=== PATIENT | male | born 1965 | race Two or more races ===

== ENCOUNTER 2020-03-09 07:22 | Outpatient (REF) | payer OTHER, SELFPAY ==
[2020-03-09 09:14] LABS: MANUAL DIFF FLAG NO
[2020-03-09 09:19] LABS: Basophils Percent Auto 0.7 % (0-2); Eosinophils Absolute Auto 0.1 X10*3/uL (0.0-0.4); Eosinophils Percent Auto 1.8 % (0-4); Hematocrit 45.6 % (42-52); Hemoglobin 15.6 g/dl (14.0-18.0); Imm Gran Abs Auto 0.01 X10*3/uL (0.00-0.03); Imm Gran Pct Auto 0.2 % (0.0-0.4); Lymphocytes Absolute Auto 1.9 X10*3/uL (1.2-4.9); Lymphocytes Percent Auto 41.7 % (20-40); Mean Corpuscular HGB Conc 34.2 g/dl (31.0-36.0); Mean Corpuscular Hemoglobin 32.6 pg (27.0-33.0); Mean Corpuscular Volume 95.2 fL (80-98); Mean Platelet Volume 9.8 fL (9.4-12.4); Monocytes Absolute Auto 0.6 X10*3/uL (0.1-1.2); Monocytes Percent Auto 13.5 % (2-11); Neutrophils Absolute Auto 1.9 X10*3/uL (2.0-8.3); Neutrophils Percent Auto 42.1 % (45-73); Platelet Count 262 X10*3/uL (160-400); Red Blood Count 4.79 X10*6/uL (4.60-5.80); Red Cell Distribution Width 11.5 % (11.0-16.0); White Blood Count 4.5 X10*3/uL (4.8-10.8)
[2020-03-09 09:28] LABS: Estimated Average Glucose 100 mg/dL; Hemoglobin A1c % 5.1 %
[2020-03-09 09:30] LABS: Glucose Urine UA NEG (NEG); Leukocyte Esterase Urine NEG (NEG); Nitrite Urine NEG (NEG); Urine Blood TRACE (NEG); Urine Ketones NEG (NEG); Urine Protein NEG (NEG-TRACE)
[2020-03-09 09:31] LABS: Appearance Urine CLEAR; Color Urine YELLOW
[2020-03-09 09:41] LABS: WBC Urine 0 /HPF (0-4)
[2020-03-09 09:42] LABS: RBC Urine 0-2 /HPF (0); Squamous Epithelial Cell Urine TRACE /LPF
[2020-03-09 10:00] LABS: Alanine Aminotransferase 21 U/L (0-40); Albumin Level 4.8 g/dL (3.5-5.0); Alkaline Phosphatase 54 U/L (39-117); Anion Gap 9 (12-20); Aspartate Amino Transferase 20 U/L (5-37); Bilirubin Total 0.6 mg/dL (0.0-1.0); Blood Urea Nitrogen 14 mg/dL (9-16); Calcium 9.6 mg/dL (8.4-10.2); Carbon Dioxide 32 mmol/L (22-29); Chloride 102 mmol/L (96-108); Cholesterol 190 mg/dL; Estimated Glomerular Filt Rate > 60; Glucose Fasting 95 mg/dL (60-99); HDL Cholesterol 72 mg/dL; LDL Cholesterol Calculated 105 mg/dl; Sodium 138 mmol/L (135-145); Total Protein 7.7 g/dL (6.5-8.0); Triglycerides 67 mg/dL
[2020-03-09 10:21] LABS: TSH reflex Free T4 1.57 mIU/mL (0.32-4.0); Vitamin D 25-OH Total 32.9 ng/mL (>30)
== END 2020-03-09 07:23 | disposition home or self-care (01) ==
LOC: HO.LAB 07:22
PROVIDERS: PCP Internal Medicine; Visit Provider Internal Medicine
DX: E78.5 Hyperlipidemia, unspecified (principal); K29.30 Chronic superficial gastritis without bleeding; R73.01 Impaired fasting glucose; J30.9 Allergic rhinitis, unspecified; R31.29 Other microscopic hematuria; E55.9 Vitamin D deficiency, unspecified; E66.3 Overweight
CPT/HCPCS: 36415; 80053; 80061; 81001; 81003; 81015; 82306; 83036; 84443; 85025

== ENCOUNTER 2020-03-13 10:08 | Outpatient (REF) | payer OTHER, SELFPAY | END 2020-03-13 10:09 | disposition home or self-care (01) | LOC: HO.LAB 10:08 | PROVIDERS: PCP Internal Medicine; Visit Provider Internal Medicine | DX: Z20.828 Contact with and (suspected) exposure to other viral communicable diseases (principal) | CPT/HCPCS: 87635 ==

== ENCOUNTER → 2020-06-13 10:47 | Outpatient (BNVA) | payer OTHER, SELFPAY | PROVIDERS: PCP Internal Medicine; Visit Provider Nurse Practitioner ==

== ENCOUNTER 2020-06-15 08:48 | Outpatient (REF) | payer OTHER, SELFPAY ==
[2020-06-15 09:34] LABS: MANUAL DIFF FLAG NO
[2020-06-15 09:38] LABS: Eosinophils Absolute Auto 0.1 X10*3/uL (0.0-0.4); Eosinophils Percent Auto 1.5 % (0-4); Hematocrit 45.2 % (42-52); Hemoglobin 15.7 g/dl (14.0-18.0); Imm Gran Abs Auto 0.01 X10*3/uL (0.00-0.03); Imm Gran Pct Auto 0.2 % (0.0-0.4); Lymphocytes Absolute Auto 1.3 X10*3/uL (1.2-4.9); Lymphocytes Percent Auto 31.2 % (20-40); Mean Corpuscular HGB Conc 34.7 g/dl (31.0-36.0); Mean Corpuscular Hemoglobin 32.8 pg (27.0-33.0); Mean Corpuscular Volume 94.6 fL (80-98); Mean Platelet Volume 9.4 fL (9.4-12.4); Monocytes Absolute Auto 0.6 X10*3/uL (0.1-1.2); Monocytes Percent Auto 13.8 % (2-11); Neutrophils Absolute Auto 2.2 X10*3/uL (2.0-8.3); Neutrophils Percent Auto 52.3 % (45-73); Platelet Count 272 X10*3/uL (160-400); Red Blood Count 4.78 X10*6/uL (4.60-5.80); Red Cell Distribution Width 11.5 % (11.0-16.0); White Blood Count 4.1 X10*3/uL (4.8-10.8)
[2020-06-15 09:45] LABS: Glucose Urine UA NEG (NEG); Leukocyte Esterase Urine NEG (NEG); Nitrite Urine NEG (NEG); Urine Blood TRACE (NEG); Urine Ketones NEG (NEG); Urine Protein NEG (NEG-TRACE)
[2020-06-15 09:46] LABS: Appearance Urine CLEAR; Color Urine YELLOW
[2020-06-15 10:01] LABS: WBC Urine 0 /HPF (0-4)
[2020-06-15 10:32] LABS: Alanine Aminotransferase 19 U/L (0-40); Albumin Level 4.9 g/dL (3.5-5.0); Alkaline Phosphatase 56 U/L (39-117); Anion Gap 11 (12-20); Aspartate Amino Transferase 17 U/L (5-37); Bilirubin Total 0.7 mg/dL (0.0-1.0); Blood Urea Nitrogen 12 mg/dL (9-16); Calcium 9.4 mg/dL (8.4-10.2); Carbon Dioxide 32 mmol/L (22-29); Chloride 99 mmol/L (96-108); Cholesterol 188 mg/dL; Estimated Glomerular Filt Rate > 60; Glucose Fasting 107 mg/dL (60-99); HDL Cholesterol 72 mg/dL; LDL Cholesterol Calculated 102 mg/dl; Potassium 4.9 mmol/l (3.3-5.1); Sodium 137 mmol/L (135-145); Total Protein 7.8 g/dL (6.5-8.0); Triglycerides 72 mg/dL
[2020-06-15 10:35] LABS: Vitamin D 25-OH Total 26.9 ng/mL (>30)
== END 2020-06-15 08:49 | disposition home or self-care (01) ==
LOC: HO.LAB 08:48
PROVIDERS: PCP Internal Medicine; Visit Provider Internal Medicine
DX: K29.30 Chronic superficial gastritis without bleeding (principal); E78.00 Pure hypercholesterolemia, unspecified; R73.01 Impaired fasting glucose; E55.9 Vitamin D deficiency, unspecified; R31.29 Other microscopic hematuria
CPT/HCPCS: 36415; 80053; 80061; 81001; 82306; 85025

== ENCOUNTER 2020-06-23 22:25 | Emergency (ER) | payer OTHER, SELFPAY ==
[2020-06-23 22:29] VITALS: BP 155/90; PULSE 93; RESP 20; TEMP 38.1; O2SAT 99; BMI 26.6
--- NOTE | 2020-06-23 22:42 | XR_ITS ---
EXAMINATION: XR CHEST CLINICAL INFORMATION: Chest pain COMPARISON: 09/19/2019 TECHNIQUE: Frontal view of the chest was obtained. FINDINGS: No significant abnormality is noted involving the heart, lungs, mediastinum, bony thorax or soft tissues. XR/XR chest 1V IMPRESSION: Unremarkable examination.
--- NOTE | 2020-06-23 23:41 | ED.GENADULT ---
HPI - General Adult General Chief complaint: Chest Pain Stated complaint: chest pain,fever Time Seen by Provider: 06/23/20 22:40 Source: patient Mode of arrival: ambulatory Limitations: language barrier History of Present Illness HPI narrative: Patient with no significant medical history came back from [place] 2 weeks ago was doing fine saw his friend who came from [place] 3 days ago complaining of body aches tiredness slight sore throat chest discomfort dry cough for last 24 hours. Also low-grade fever temperature on arrival was 100.6 Related Data Home Medications Medication Instructions Recorded Confirmed atorvastatin 20 mg tablet 20 mg PO DAILY 03/17/20 03/17/20 [id number] 1 cap PO QID 06/12/20 06/12/20 24,000-76,000-120,000 unit capsule,delayed rel cholecalciferol (vitamin D3) 25 25 mcg PO DAILY 06/13/20 mcg (1,000 unit) capsule Previous Rx's Medication Instructions Recorded dexlansoprazole 60 mg 60 mg PO BEDTIME #30 cap 06/08/20 capsule,biphase delayed release Allergies Allergy/AdvReac Type Severity Reaction Status Date / Time No Known Allergies Allergy Verified 06/23/20 22:36 [No Known Allergies*] Review of Systems Review of Systems: Constitutional : No Weight loss, +Fever, No Chills ENT/Mouth : + sore throat, No Rhinorrhea Eyes: No Eye Pain, No Swelling Cardiovascular : No Chest Pain, no palpitations Respiratory : Occasional Cough, No Sputum, no shortness of breath Gastrointestinal : no Nausea, No Vomiting, No Diarrhea, No abdominal Pain, no black stools Genitourinary : No Dysuria, No Urinary Frequency Musculoskeletal : No joint pain, ++ Myalgias, No Joint Swelling Skin : No Skin Lesions, No rash Neuro : No Weakness, No Numbness, No Dizziness, No Headache Psych : No Anxiety/Panic, No Depression Heme/Lymph: No Bruising, No Lymphadenopathy Endocrine : No Polyuria, No Polydipsia All other systems reviewed and are negative [facility], [facility] Past Medical History Medical History Allergic rhinitis Impaired fasting glucose Microscopic hematuria Overweight (BMI 25.0-29.9) Pure hypercholesterolemia Superficial gastritis without hemorrhage Vitamin D deficiency Surgical History History of colonoscopy History of esophagogastroduodenoscopy (EGD) Family History Family History Father Medical history unknown Mother Hypertension Maternal Aunt Cancer Maternal Uncle Cancer Social History Social History Alcohol intake: current Alcohol intake frequency: 0-2 drinks per day Alcohol type: beer Smoking Status: Never smoker Use of substances other than those prescribed or required for medical reasons: No Advance Directives: No Advance Directives Information Provided: Yes Physical Exam Vital Signs: Vital Signs: Last Vital Signs Temp 103.1 F H 06/23/20 23:59 Pulse 96 06/23/20 23:59 Resp 18 06/23/20 23:59 BP 146/86 H 06/23/20 23:59 Pulse Ox 97 06/23/20 23:59 Body Mass Index 26.6 Appearance: Alert. Oriented X3. No acute distress. Eyes: Pupils equal, round and reactive to light. ENT: Pharynx normal. Neck: Normal inspection. Neck supple. CVS: Normal heart rate and rhythm. Pulses normal. Respiratory: No respiratory distress. Breath sounds normal. Abdomen: Soft and nontender. Bowel sounds are present, no mass palpable, no CVA tenderness Skin: Skin warm and dry. Normal skin color. Normal skin turgor. Extremities: No lower extremity edema. Neuro: Oriented X 3. No motor deficit. No sensory deficit. Course Course Course Narrative: Patient COVID positive with stable labs saturating 98% at room air will discharge patient home Medical Decision Making MDM Narrative Medical decision making narrative: Patient's symptoms likely from COVID will test for COVID chest x-ray is negative patient is saturating 99% at room air will give him prescription for Decadron and doxycycline Lab Data Lab results reviewed: Yes I reviewed the patient's lab results. Result diagrams: 06/24/20 00:19 06/24/20 00:19 Labs: Lab Results 06/24/20 06/24/20 06/24/20 Range/Units 00:03 00:19 00:19 WBC 4.1 L (4.8-10.8) X10*3/uL RBC 4.50 L (4.60-5.80) X10*6/uL Hgb 14.9 (14.0-18.0) g/dl Hct 42.2 (42-52) % MCV 93.8 (80-98) fL MCH 33.1 H (27.0-33.0) pg MCHC 35.3 (31.0-36.0) g/dl RDW 11.7 (11.0-16.0) % Plt Count 217 (160-400) X10*3/uL MPV 9.3 L (9.4-12.4) fL Immature Gran % (Auto) 0.2 (0.0-0.4) % Neut % (Auto) 52.1 (45-73) % Lymph % (Auto) 18.5 L (20-40) % [place] % (Auto) 28.5 H (2-11) % Eos % (Auto) 0.2 (0-4) % Baso % (Auto) 0.5 (0-2) % Lymph # (Auto) 0.8 L (1.2-4.9) X10*3/uL [place] # (Auto) 1.2 (0.1-1.2) X10*3/uL Eos # (Auto) 0.0 (0.0-0.4) X10*3/uL Baso # (Auto) 0.0 (0.0-0.2) X10*3/uL Abs Immat Gran (auto) 0.01 (0.00-0.03) X10*3/uL Absolute Neuts (auto) 2.1 (2.0-8.3) X10*3/uL Absolute Nucleated RBC 0.000 (0.0-0.012) X10*3/uL Nucleated RBC % (auto) 0.0 (0.0-0.2) /100WBC Smear Tech's Comments VERIFIED Sodium 135 (135-145) mmol/L Potassium 3.9 (3.3-5.1) mmol/L Chloride 98 (96-108) mmol/L Carbon Dioxide 28 (22-29) mmol/L Anion Gap 13 (12-20) BUN 11 (9-16) mg/dL Creatinine 0.96 (0.5-1.4) mg/dL Estim Creat Clear Calc 76.5 Estimated GFR > 60 Random Glucose 102 (60-115) mg/dL Lactic Acid (0.5-2.0) mmol/L Calcium 9.0 (8.4-10.2) mg/dL Total Bilirubin 0.6 (0.0-1.0) mg/dL Direct Bilirubin 0.2 (0.0-0.5) mg/dL AST 23 (5-37) U/L ALT 19 (0-40) U/L Alkaline Phosphatase 59 (39-117) U/L Total Protein 7.9 (6.5-8.0) g/dL Albumin 4.9 (3.5-5.0) g/dL COVID-19 (ANGELITO) Positive A (Negative) COVID-19 Clin Com See Note 06/24/20 Range/Units 00:19 WBC (4.8-10.8) X10*3/uL RBC (4.60-5.80) X10*6/uL Hgb (14.0-18.0) g/dl Hct (42-52) % MCV (80-98) fL MCH (27.0-33.0) pg MCHC (31.0-36.0) g/dl RDW (11.0-16.0) % Plt Count (160-400) X10*3/uL MPV (9.4-12.4) fL Immature Gran % (Auto) (0.0-0.4) % Neut % (Auto) (45-73) % Lymph % (Auto) (20-40) % [place] % (Auto) (2-11) % Eos % (Auto) (0-4) % Baso % (Auto) (0-2) % Lymph # (Auto) (1.2-4.9) X10*3/uL [place] # (Auto) (0.1-1.2) X10*3/uL Eos # (Auto) (0.0-0.4) X10*3/uL Baso # (Auto) (0.0-0.2) X10*3/uL Abs Immat Gran (auto) (0.00-0.03) X10*3/uL Absolute Neuts (auto) (2.0-8.3) X10*3/uL Absolute Nucleated RBC (0.0-0.012) X10*3/uL Nucleated RBC % (auto) (0.0-0.2) /100WBC Smear Tech's Comments Sodium (135-145) mmol/L Potassium (3.3-5.1) mmol/L Chloride (96-108) mmol/L Carbon Dioxide (22-29) mmol/L Anion Gap (12-20) BUN (9-16) mg/dL Creatinine (0.5-1.4) mg/dL Estim Creat Clear Calc Estimated GFR Random Glucose (60-115) mg/dL Lactic Acid 0.9 (0.5-2.0) mmol/L Calcium (8.4-10.2) mg/dL Total Bilirubin (0.0-1.0) mg/dL Direct Bilirubin (0.0-0.5) mg/dL AST (5-37) U/L ALT (0-40) U/L Alkaline Phosphatase (39-117) U/L Total Protein (6.5-8.0) g/dL Albumin (3.5-5.0) g/dL COVID-19 (ANGELITO) (Negative) COVID-19 Clin Com Imaging Data Chest x-ray: Radiologist's impression: EXAMINATION: XR CHEST CLINICAL INFORMATION: Chest pain COMPARISON: 09/19/2019 TECHNIQUE: Frontal view of the chest was obtained. FINDINGS: No significant abnormality is noted involving the heart, lungs, mediastinum, bony thorax or soft tissues. XR/XR chest 1V IMPRESSION: Unremarkable examination. Discharge Plan Discharge Prescriptions: No Action dexlansoprazole [Dexilant] 60 mg capsule,biphase delayed releas 60 mg PO BEDTIME Qty: 30 RF: 3 atorvastatin 20 mg tablet 20 mg PO DAILY RF: 0 Creon 24,000-76,000 -120,000 unit capsule,delayed release(DR/EC) 1 cap PO QID RF: 0
[2020-06-23 23:59] VITALS: BP 146/86; PULSE 96; RESP 18; TEMP 39.5; O2SAT 97
[2020-06-24] MEDS: Acetaminophen 325 MG TABLET 650 MG PO
[2020-06-24] MEDS: Ketorolac Tromethamine 30 MG/ML VIAL IVPUSH (00:21)
[2020-06-24] MEDS: 0.9 % Sodium Chloride 1,000 ML 999 ML IVCONT (00:21)
[2020-06-24 00:26] LABS: COVID-19 Test Positive (Negative)
[2020-06-24 00:30] LABS: Basophils Percent Auto 0.5 % (0-2); Eosinophils Percent Auto 0.2 % (0-4); Hematocrit 42.2 % (42-52); Hemoglobin 14.9 g/dl (14.0-18.0); Imm Gran Abs Auto 0.01 X10*3/uL (0.00-0.03); Imm Gran Pct Auto 0.2 % (0.0-0.4); Lymphocytes Absolute Auto 0.8 X10*3/uL (1.2-4.9); Lymphocytes Percent Auto 18.5 % (20-40); MANUAL DIFF FLAG SCAN; Mean Corpuscular HGB Conc 35.3 g/dl (31.0-36.0); Mean Corpuscular Hemoglobin 33.1 pg (27.0-33.0); Mean Corpuscular Volume 93.8 fL (80-98); Mean Platelet Volume 9.3 fL (9.4-12.4); Monocytes Absolute Auto 1.2 X10*3/uL (0.1-1.2); Monocytes Percent Auto 28.5 % (2-11); Neutrophils Absolute Auto 2.1 X10*3/uL (2.0-8.3); Neutrophils Percent Auto 52.1 % (45-73); Platelet Count 217 X10*3/uL (160-400); Red Cell Distribution Width 11.7 % (11.0-16.0); SCAN SMEAR FLAG 1; White Blood Count 4.1 X10*3/uL (4.8-10.8)
[2020-06-24 00:49] LABS: Lactic Acid 0.9 mmol/L (0.5-2.0)
[2020-06-24 00:55] LABS: Alanine Aminotransferase 19 U/L (0-40); Albumin Level 4.9 g/dL (3.5-5.0); Alkaline Phosphatase 59 U/L (39-117); Anion Gap 13 (12-20); Aspartate Amino Transferase 23 U/L (5-37); Bilirubin Direct 0.2 mg/dL (0.0-0.5); Bilirubin Total 0.6 mg/dL (0.0-1.0); Blood Urea Nitrogen 11 mg/dL (9-16); Carbon Dioxide 28 mmol/L (22-29); Chloride 98 mmol/L (96-108); Creatinine Clr Calc Pharmacy 76.5; Estimated Glomerular Filt Rate > 60; Glucose Random 102 mg/dL (60-115); Potassium 3.9 mmol/L (3.3-5.1); Sodium 135 mmol/L (135-145); Total Protein 7.9 g/dL (6.5-8.0)
[2020-06-24 01:25] LABS: SLIDE REVIEW VERIFIED
[2020-06-24 02:00] VITALS: BP 140/60; PULSE 93; RESP 18; TEMP 37.3; O2SAT 100
== END 2020-06-24 02:10 | disposition home or self-care (01) ==
PROVIDERS: Emergency Provider Internal Medicine; PCP Internal Medicine
DX: R07.9 Chest pain, unspecified (principal); R50.9 Fever, unspecified; Z79.899 Other long term (current) drug therapy; Z20.822 Contact with and (suspected) exposure to COVID-19
CPT/HCPCS: 36415; 71045; 80048; 80076; 83605; 85025; 87040; 87635; 96361; 96374; 99284; J1100; J1885

== ENCOUNTER 2020-09-20 07:13 | Outpatient (REF) | payer OTHER, SELFPAY ==
[2020-09-20 08:22] LABS: Glucose Urine UA NEG (NEG); Leukocyte Esterase Urine NEG (NEG); Nitrite Urine NEG (NEG); PH 7.5 (5.0-8.0); Urine Blood TRACE (NEG); Urine Ketones NEG (NEG); Urine Protein NEG (NEG-TRACE)
[2020-09-20 08:23] LABS: Appearance Urine CLEAR; Color Urine YELLOW
[2020-09-20 08:25] LABS: MANUAL DIFF FLAG NO
[2020-09-20 08:29] LABS: Basophils Percent Auto 0.8 % (0-2); Eosinophils Absolute Auto 0.1 X10*3/uL (0.0-0.4); Eosinophils Percent Auto 1.9 % (0-4); Hematocrit 43.3 % (42-52); Hemoglobin 14.5 g/dl (14.0-18.0); Imm Gran Abs Auto 0.02 X10*3/uL (0.00-0.03); Imm Gran Pct Auto 0.4 % (0.0-0.4); Lymphocytes Percent Auto 40.6 % (20-40); Mean Corpuscular HGB Conc 33.5 g/dl (31.0-36.0); Mean Corpuscular Hemoglobin 31.9 pg (27.0-33.0); Mean Corpuscular Volume 95.4 fL (80-98); Mean Platelet Volume 9.6 fL (9.4-12.4); Monocytes Absolute Auto 0.8 X10*3/uL (0.1-1.2); Monocytes Percent Auto 15.9 % (2-11); Neutrophils Percent Auto 40.4 % (45-73); Platelet Count 285 X10*3/uL (160-400); Red Blood Count 4.54 X10*6/uL (4.60-5.80); Red Cell Distribution Width 12.1 % (11.0-16.0); White Blood Count 4.9 X10*3/uL (4.8-10.8)
[2020-09-20 08:31] LABS: RBC Urine 0-2 /HPF (0); WBC Urine 0 /HPF (0-4)
[2020-09-20 08:56] LABS: Alanine Aminotransferase 21 U/L (0-40); Albumin Level 4.6 g/dL (3.5-5.0); Alkaline Phosphatase 52 U/L (39-117); Anion Gap 11 (12-20); Aspartate Amino Transferase 22 U/L (5-37); Bilirubin Total 0.6 mg/dL (0.0-1.0); Blood Urea Nitrogen 10 mg/dL (9-16); Calcium 9.8 mg/dL (8.4-10.2); Carbon Dioxide 30 mmol/L (22-29); Chloride 102 mmol/L (96-108); Cholesterol 214 mg/dL; Estimated Glomerular Filt Rate > 60; Glucose Fasting 109 mg/dL (60-99); HDL Cholesterol 69 mg/dL; LDL Cholesterol Calculated 120 mg/dl; Potassium 4.4 mmol/L (3.3-5.1); Sodium 139 mmol/L (135-145); Total Protein 7.5 g/dL (6.5-8.0); Triglycerides 127 mg/dL
[2020-09-20 09:19] LABS: Vitamin D 25-OH Total 25.5 ng/mL (>30)
== END 2020-09-20 07:14 | disposition home or self-care (01) ==
LOC: HO.LAB 07:13
PROVIDERS: PCP Internal Medicine; Visit Provider Internal Medicine
DX: K29.30 Chronic superficial gastritis without bleeding (principal); J30.9 Allergic rhinitis, unspecified; E78.00 Pure hypercholesterolemia, unspecified; R73.01 Impaired fasting glucose; E55.9 Vitamin D deficiency, unspecified
CPT/HCPCS: 36415; 80053; 80061; 81001; 82306; 85025

== ENCOUNTER → 2020-12-07 15:28 | Outpatient (BNVA) | payer OTHER, SELFPAY | PROVIDERS: PCP Internal Medicine; Visit Provider Nurse Practitioner ==

== ENCOUNTER 2021-01-09 06:39 | Outpatient (REF) | payer OTHER, SELFPAY ==
[2021-01-09 08:05] LABS: Glucose Urine UA NEG (NEG); Leukocyte Esterase Urine NEG (NEG); Nitrite Urine NEG (NEG); UACC Culture Trigger NO; Urine Blood 1+ (NEG); Urine Ketones NEG (NEG); Urine Protein NEG (NEG-TRACE)
[2021-01-09 08:06] LABS: Appearance Urine CLEAR; Color Urine YELLOW
[2021-01-09 08:06] LABS: MANUAL DIFF FLAG NO
[2021-01-09 08:12] LABS: Basophils Percent Auto 0.8 % (0-2); Eosinophils Absolute Auto 0.1 X10*3/uL (0.0-0.4); Eosinophils Percent Auto 2.5 % (0-4); Hematocrit 42.6 % (42-52); Hemoglobin 14.7 g/dl (14.0-18.0); Imm Gran Abs Auto 0.01 X10*3/uL (0.00-0.03); Imm Gran Pct Auto 0.2 % (0.0-0.4); Lymphocytes Absolute Auto 1.8 X10*3/uL (1.2-4.9); Lymphocytes Percent Auto 34.5 % (20-40); Mean Corpuscular HGB Conc 34.5 g/dl (31.0-36.0); Mean Corpuscular Hemoglobin 32.4 pg (27.0-33.0); Mean Corpuscular Volume 93.8 fL (80-98); Mean Platelet Volume 9.7 fL (9.4-12.4); Monocytes Absolute Auto 0.7 X10*3/uL (0.1-1.2); Neutrophils Absolute Auto 2.5 X10*3/uL (2.0-8.3); Platelet Count 285 X10*3/uL (160-400); Red Blood Count 4.54 X10*6/uL (4.60-5.80); Red Cell Distribution Width 11.9 % (11.0-16.0); White Blood Count 5.2 X10*3/uL (4.8-10.8)
[2021-01-09 08:15] LABS: RBC Urine 0-2 /HPF (0); WBC Urine 0-2 /HPF (0-4)
[2021-01-09 09:05] LABS: Alanine Aminotransferase 18 U/L (0-40); Albumin Level 4.4 g/dL (3.5-5.0); Alkaline Phosphatase 53 U/L (39-117); Anion Gap 12 (12-20); Aspartate Amino Transferase 18 U/L (5-37); Bilirubin Total 0.5 mg/dL (0.0-1.0); Blood Urea Nitrogen 13 mg/dL (9-16); Calcium 9.4 mg/dL (8.4-10.2); Carbon Dioxide 27 mmol/L (22-29); Chloride 104 mmol/L (96-108); Cholesterol 222 mg/dL; Estimated Glomerular Filt Rate > 60; Glucose Fasting 100 mg/dL (60-99); HDL Cholesterol 67 mg/dL; LDL Cholesterol Calculated 123 mg/dl; Potassium 4.4 mmol/L (3.3-5.1); Sodium 139 mmol/L (135-145); Total Protein 7.3 g/dL (6.5-8.0); Triglycerides 161 mg/dL
[2021-01-09 09:14] LABS: TSH reflex Free T4 1.99 uIU/mL (0.32-4.0); Vitamin D 25-OH Total 25.1 ng/mL (>30)
== END 2021-01-09 06:40 | disposition home or self-care (01) ==
LOC: HO.LAB 06:39
PROVIDERS: PCP Internal Medicine; Visit Provider Internal Medicine
DX: K29.30 Chronic superficial gastritis without bleeding (principal); J30.9 Allergic rhinitis, unspecified; E78.00 Pure hypercholesterolemia, unspecified; R73.01 Impaired fasting glucose; E66.3 Overweight; E55.9 Vitamin D deficiency, unspecified
CPT/HCPCS: 36415; 80053; 80061; 81001; 81003; 82306; 84443; 85025

== ENCOUNTER 2021-04-12 07:14 | Outpatient (REF) | payer OTHER, SELFPAY ==
[2021-04-12 07:26] LABS: MANUAL DIFF FLAG NO
[2021-04-12 07:43] LABS: Basophils Percent Auto 0.7 % (0-2); Eosinophils Absolute Auto 0.1 X10*3/uL (0.0-0.4); Hematocrit 43.2 % (42.0-52.0); Imm Gran Abs Auto 0.01 X10*3/uL (0.00-0.03); Imm Gran Pct Auto 0.2 % (0.0-0.4); Lymphocytes Absolute Auto 2.4 X10*3/uL (1.2-4.9); Mean Corpuscular HGB Conc 34.7 g/dl (31.0-36.0); Mean Corpuscular Volume 92.1 fL (80.0-98.0); Mean Platelet Volume 9.3 fL (9.4-12.4); Monocytes Absolute Auto 0.7 X10*3/uL (0.1-1.2); Monocytes Percent Auto 12.3 % (2-11); Neutrophils Absolute Auto 2.2 x10*3/uL (2.0-8.3); Neutrophils Percent Auto 40.8 % (45-73); Platelet Count 265 X10*3/uL (160-400); Red Blood Count 4.69 X10*6/uL (4.60-5.80); Red Cell Distribution Width 11.6 % (11.0-16.0); White Blood Count 5.4 X10*3/uL (4.8-10.8)
[2021-04-12 07:50] LABS: Appearance Urine CLEAR; Color Urine YELLOW; Glucose Urine UA NEG (NEG); Leukocyte Esterase Urine NEG (NEG); Nitrite Urine NEG (NEG); UACC Culture Trigger NO; Urine Blood TRACE (NEG); Urine Ketones NEG (NEG); Urine Protein NEG (NEG-TRACE)
[2021-04-12 08:18] LABS: Alanine Aminotransferase 23 U/L (0-40); Albumin Level 4.5 g/dL (3.5-5.0); Alkaline Phosphatase 56 U/L (39-117); Anion Gap 11 (12-20); Aspartate Amino Transferase 16 U/L (5-37); Bilirubin Total 0.4 mg/dL (0.0-1.0); Blood Urea Nitrogen 14 mg/dL (9-16); Calcium 9.5 mg/dL (8.4-10.2); Carbon Dioxide 28 mmol/L (22-29); Chloride 104 mmol/L (96-108); Cholesterol 154 mg/dL; Estimated Glomerular Filt Rate > 60; Glucose Fasting 103 mg/dL (60-99); HDL Cholesterol 48 mg/dL; LDL Cholesterol Calculated 86 mg/dl; Potassium 4.1 mmol/L (3.3-5.1); Sodium 139 mmol/L (135-145); Total Protein 7.4 g/dL (6.5-8.0); Triglycerides 103 mg/dL
[2021-04-12 08:25] LABS: TSH reflex Free T4 1.02 uIU/mL (0.32-4.0); Vitamin D 25-OH Total 26.6 ng/mL (>30)
[2021-04-12 13:15] LABS: RBC Urine 0-2 /HPF (0); Squamous Epithelial Cell Urine TRACE /LPF; WBC Urine 0 /HPF (0-4)
== END 2021-04-12 07:15 | disposition home or self-care (01) ==
LOC: HO.LAB 07:14
PROVIDERS: PCP Internal Medicine; Visit Provider Internal Medicine
DX: E78.00 Pure hypercholesterolemia, unspecified (principal); E55.9 Vitamin D deficiency, unspecified; I10 Essential (primary) hypertension
CPT/HCPCS: 36415; 80053; 80061; 81001; 82306; 84443; 85025

== ENCOUNTER → 2021-06-07 15:30 | Outpatient (BNVA) | payer OTHER, SELFPAY | PROVIDERS: PCP Internal Medicine; Referring Provider Internal Medicine; Visit Provider Nurse Practitioner | DX: K21.9 Gastro-esophageal reflux disease without esophagitis (principal); K58.0 Irritable bowel syndrome with diarrhea | CPT/HCPCS: 99212 ==

== ENCOUNTER 2021-07-25 07:29 | Outpatient (REF) | payer OTHER, SELFPAY ==
[2021-07-25 07:45] LABS: MANUAL DIFF FLAG NO
[2021-07-25 08:12] LABS: Basophils Percent Auto 0.5 % (0-2); Eosinophils Absolute Auto 0.1 X10*3/uL (0.0-0.4); Eosinophils Percent Auto 2.1 % (0-4); Hematocrit 42.9 % (42.0-52.0); Hemoglobin 14.3 g/dl (14.0-18.0); Imm Gran Abs Auto 0.01 X10*3/uL (0.00-0.03); Imm Gran Pct Auto 0.2 % (0.0-0.4); Lymphocytes Absolute Auto 1.8 X10*3/uL (1.2-4.9); Lymphocytes Percent Auto 31.1 % (20-40); Mean Corpuscular HGB Conc 33.3 g/dl (31.0-36.0); Mean Corpuscular Hemoglobin 31.6 pg (27.0-33.0); Mean Corpuscular Volume 94.9 fL (80.0-98.0); Mean Platelet Volume 9.5 fL (9.4-12.4); Monocytes Absolute Auto 0.7 X10*3/uL (0.1-1.2); Monocytes Percent Auto 12.8 % (2-11); Neutrophils Absolute Auto 3.1 x10*3/uL (2.0-8.3); Neutrophils Percent Auto 53.3 % (45-73); Platelet Count 269 X10*3/uL (160-400); Red Blood Count 4.52 X10*6/uL (4.60-5.80); White Blood Count 5.8 X10*3/uL (4.8-10.8)
[2021-07-25 08:43] LABS: Alanine Aminotransferase 13 U/L (0-40); Albumin Level 4.6 g/dL (3.5-5.0); Alkaline Phosphatase 55 U/L (39-117); Anion Gap 12 (12-20); Aspartate Amino Transferase 18 U/L (5-37); Bilirubin Total 0.5 mg/dL (0.0-1.0); Blood Urea Nitrogen 9 mg/dL (9-16); Carbon Dioxide 31 mmol/L (22-29); Chloride 103 mmol/L (96-108); Cholesterol 175 mg/dL; Estimated Glomerular Filt Rate > 60; Glucose Fasting 108 mg/dL (60-99); HDL Cholesterol 60 mg/dL; LDL Cholesterol Calculated 95 mg/dl; Potassium 5.2 mmol/L (3.3-5.1); Sodium 141 mmol/L (135-145); Total Protein 7.5 g/dL (6.5-8.0); Triglycerides 104 mg/dL
[2021-07-25 09:08] LABS: TSH reflex Free T4 0.89 uIU/mL (0.32-4.0); Vitamin D 25-OH Total 25.7 ng/mL (>30)
[2021-07-25 09:24] LABS: Appearance Urine CLEAR; Color Urine YELLOW; Glucose Urine UA NEG (NEG); Leukocyte Esterase Urine NEG (NEG); Nitrite Urine NEG (NEG); UACC Culture Trigger NO; Urine Blood TRACE (NEG); Urine Ketones NEG (NEG); Urine Protein NEG (NEG-TRACE)
[2021-07-25 09:38] LABS: RBC Urine 0-2 /HPF (0); Squamous Epithelial Cell Urine TRACE /LPF; WBC Urine 0 /HPF (0-4)
== END 2021-07-25 07:30 | disposition home or self-care (01) ==
LOC: HO.LAB 07:29
PROVIDERS: PCP Internal Medicine; Visit Provider Internal Medicine
DX: I10 Essential (primary) hypertension (principal); E78.00 Pure hypercholesterolemia, unspecified; E55.9 Vitamin D deficiency, unspecified
CPT/HCPCS: 36415; 80053; 80061; 81001; 81003; 82306; 84443; 85025

== ENCOUNTER 2021-08-21 07:52 | Emergency (ER) | payer OTHER, SELFPAY ==
--- NOTE | ~2021-08-21 | US_ITS ---
EXAMINATION: US ABDOMEN LIMITED CLINICAL INFORMATION: Right upper quadrant and epigastric pain. COMPARISON: None TECHNIQUE: Real-time imaging of the right upper quadrant abdominal viscera. FINDINGS: PANCREAS: Normal. LIVER: Normal. The liver is normal in size. The liver contour is normal. Parenchymal echogenicity is normal. No focal hepatic lesion. There is no intrahepatic biliary duct dilatation seen. GALLBLADDER: There is a 7 x 5 x 7 mm echogenic density adjacent to the gallbladder wall. This does not move or shadow and is suggestive of a gallbladder wall polyp. There is a small amount of sludge in the gallbladder. No definite gallstones are seen. The gallbladder wall is normal. There is no pericholecystic fluid. COMMON BILE DUCT: Normal in caliber measuring 0.3 cm in diameter. RIGHT KIDNEY: Normal. No hydronephrosis. No renal calculi or focal parenchymal lesions. The kidney measures 11 cm in maximum dimension. FREE FLUID: None. US/US abdomen limited IMPRESSION: 7 x 5 x 7 mm probable gallbladder wall polyp. Small amount of sludge in the gallbladder. No definite gallstones seen. Follow-up ultrasound of the gallbladder wall polyp in 6 months recommended.
[2021-08-21 07:56] VITALS: BP 135/70; PULSE 71; RESP 18; TEMP 36.7; O2SAT 100; BMI 29.9
--- NOTE | 2021-08-21 08:57 | ED_ITS ---
HPI - Abdominal Pain General Chief Complaint: Abdominal Pain Stated Complaint: severe stomach pains Time Seen by Provider: 08/21/21 08:56 Source: patient and pile header Mode of arrival: ambulatory Limitations: no limitations History of Present Illness MD elicited complaint: abdominal pain Pertinent past history: gastritis Onset (ago): day(s) (this AM) Pain Consistency: intermittent Location: epigastric Severity: severe Quality: cramping Radiation: none Migration to: no migration Exacerbating factors: eating and movement Relieving factors: nothing Context: history of similar episodes Associated symptoms: nausea Related Data Previous Rx's Medication Instructions Recorded albuterol sulfate 90 mcg/actuation 2 puff INHALATION Q6H PRN #8.5 g 06/24/20 aerosol inhaler (Proventil HFA) cholecalciferol (vitamin D3) 25 25 mcg PO DAILY 90 Days #90 cap 11/09/20 mcg (1,000 unit) capsule atorvastatin 40 mg tablet 40 mg PO DAILY 90 Days #90 tab 01/10/21 famotidine 40 mg tablet (Pepcid) 40 mg PO BEDTIME #30 tab 06/07/21 [id number] 1 cap PO QID 30 Days #120 cap 06/07/21 24,000-76,000-120,000 unit capsule,delayed rel (Creon) tamsulosin 0.4 mg capsule 0.4 mg PO BEDTIME 30 Days #30 cap 07/30/21 Dexilant 60 mg capsule, delayed 60 mg PO BEDTIME #30 cap NS 08/14/21 release (dexlansoprazole) hydrocodone 5 mg-acetaminophen 325 1 tab PO Q6H PRN #8 tab 08/21/21 mg tablet ondansetron 4 mg disintegrating 4 mg PO Q8H PRN #20 tab 08/21/21 tablet Allergies Allergy/AdvReac Type Severity Reaction Status Date / Time No Known Allergies Allergy Verified 07/30/21 16:42 [No Known Allergies*] Review of Systems Review of Systems Constitutional : No Weight loss, No Fever, No Chills ENT/Mouth : No sore throat, No Rhinorrhea Eyes: No Swelling, No Redness Cardiovascular : No Chest Pain, No SOB, NoEdema Respiratory : No Cough, No Sputum, No Wheezing Gastrointestinal : Positive Nausea, no Vomiting, no Diarrhea, positive abdominal Pain, No Hematochezia, No Melena Genitourinary : No Dysuria, No Urinary Frequency, No Hematuria, No Urgency Musculoskeletal : No joint pain, No Myalgias, No Joint Swelling Skin : No Skin Lesions, No rash Neuro : No Weakness, No Numbness, No Dizziness, No Headache Psych : No Anxiety/Panic, No Depression Heme/Lymph: No Bruising, No Lymphadenopathy Endocrine : No Polyuria, No Polydipsia All other systems reviewed and are negative. ON LICENSE OF [facility] Past Medical History Attestation statement: The following information was validated with the patient. Medical History Allergic rhinitis IBS (irritable bowel syndrome) Impaired fasting glucose Microscopic hematuria Overweight (BMI 25.0-29.9) Pure hypercholesterolemia Superficial gastritis without hemorrhage Vitamin D deficiency Surgical History History of colonoscopy History of esophagogastroduodenoscopy (EGD) Family History Family History Father Medical history unknown Mother Hypertension Maternal Aunt Cancer Maternal Uncle Cancer Social History Social History Housing: Apartment Alcohol intake: current Alcohol intake frequency: a few times a week Alcohol type: beer Patient Tobacco Use Status: Never used Tobacco Second Hand Smoke Exposure: Yes Advance Directives: No Advance Directives Information Provided: No service: No Current occupational status: unemployed Physical Exam ED Vital Signs: Vital Signs - 24 hr 08/21/21 07:56 08/21/21 09:53 Temperature 98.1 F Pulse Rate 71 Respiratory Rate 18 17 Blood Pressure 135/70 Pulse Oximetry 100 BMI result Body Mass Index 29.9 Appearance: Alert. Oriented X3. No acute distress. Eyes: Pupils equal, round and reactive to light. ENT: Pharynx normal. Neck: Normal inspection. Neck supple. CVS: Normal heart rate and rhythm. Pulses normal. Respiratory: No respiratory distress. Breath sounds normal. Abdomen: Soft and moderate epigastric ttp no rebound Skin: Skin warm and dry. Normal skin color. Normal skin turgor. Extremities: No lower extremity edema. No calf ttp Neuro: Oriented X 3. No motor deficit. No sensory deficit. Course Course Course Narrative: US pancreas normal, has neg clarke's sign, no signs of GB inflammation doubt ch olecystitis - suspect gastritis stable for DC feels better, mild intermittent pain but much better MDM - Abdominal Pain MDM Narrative Medical decision making narrative: 56 yo male with hx of IBS, GERD, HLD comes in with c/o epigastric pain and nausea that started this AM. He does have hx of gastritis. At this time pain is in epigastric area he admits to drinking heavier than usual this weekend. Will obtain labs, hydrate, IV toradol/pepcid/zofran. US to evaluate liver/GB/pancreas. Dispo per results and findings. Differential Diagnosis Differential diagnosis: Likely abdominal pain, gastritis and pancreatitis; Unlikely acute appendicitis, bowel perforation or calculus of kidney Lab Data Result diagrams: 08/21/21 09:01 08/21/21 09:01 Labs: Lab Results 08/21/21 08/21/21 Range/Units 09:01 09:01 WBC 4.2 L (4.8-10.8) X10*3/uL RBC 4.44 L (4.60-5.80) X10*6/uL Hgb 14.3 (14.0-18.0) g/dl Hct 41.2 L (42.0-52.0) % MCV 92.8 (80.0-98.0) fL MCH 32.2 (27.0-33.0) pg MCHC 34.7 (31.0-36.0) g/dl RDW 11.9 (11.0-16.0) % Plt Count 225 (160-400) X10*3/uL MPV 9.1 L (9.4-12.4) fL Absolute Nucleated RBC 0.000 (0.0-0.012) X10*3/uL Nucleated RBC % (auto) 0.0 (0.0-0.2) /100WBC Sodium 138 (135-145) mmol/L Potassium 4.3 (3.3-5.1) mmol/L Chloride 103 (96-108) mmol/L Carbon Dioxide 29 (22-29) mmol/L Anion Gap 10 L (12-20) BUN 11 (9-16) mg/dL Creatinine 0.80 (0.5-1.4) mg/dL Estim Creat Clear Calc 101.4 Estimated GFR > 60 Random Glucose 120 H (60-115) mg/dL Calcium 9.6 (8.4-10.2) mg/dL Total Bilirubin 0.3 (0.0-1.0) mg/dL Direct Bilirubin < 0.2 (0.0-0.5) mg/dL AST 16 (5-37) U/L ALT 18 (0-40) U/L Alkaline Phosphatase 54 (39-117) U/L Total Protein 7.3 (6.5-8.0) g/dL Albumin 4.5 (3.5-5.0) g/dL Lipase 29 (8-78) U/L Discharge Plan Discharge Clinical Impression: Gallbladder polyp Abdominal pain Qualifiers: Abdominal location: epigastric Qualified Code(s): R10.13 - Epigastric pain Gastritis Qualifiers: Gastritis type: unspecified gastritis Chronicity: acute Gastritis bleeding: without bleeding Qualified Code(s): K29.00 - Acute gastritis without bleeding Patient Disposition: Home, Self-Care Instructions: Gastritis (ED), Abdominal Pain (ED) Additional Instructions: return to ED for any worsening symptoms or concerns 7 x 5 x 7 mm probable gallbladder wall polyp. Small amount of sludge in the gallbladder. No definite gallstones seen. Follow-up ultrasound of the gallbladder wall polyp in 6 months recommended. US de ves?cula biliar en 6 meses por p?lipo en pared vesicular Prescriptions: New hydrocodone-acetaminophen 5-325 mg tablet 1 tab PO Q6H PRN (Reason: pain) Qty: 8 0RF ondansetron 4 mg tablet,disintegrating 4 mg PO Q8H PRN (Reason: nausea and vomiting) Qty: 20 0RF No Action cholecalciferol (vitamin D3) 25 mcg (1,000 unit) capsule 25 mcg PO DAILY 90 Days Qty: 90 3RF dexlansoprazole [Dexilant] 60 mg capsule,biphase delayed releas 60 mg PO BEDTIME Qty: 30 6RF albuterol sulfate [Proventil HFA] 90 mcg/actuation HFA aerosol inhaler 2 puff inhalation Q6H PRN (Reason: shortness of breath or wheezing) Qty: 8.5 0RF atorvastatin 40 mg tablet 40 mg PO DAILY 90 Days Qty: 90 1RF tamsulosin 0.4 mg capsule 0.4 mg PO BEDTIME 30 Days Qty: 30 3RF famotidine [Pepcid] 40 mg tablet 40 mg PO BEDTIME Qty: 30 6RF Creon 24,000-76,000 -120,000 unit capsule,delayed release(DR/EC) 1 cap PO QID 30 Days Qty: 120 6RF Rx Instructions: administer with meals and/or snacks Referrals: Gorge Reynolds MD [Primary Care Provider] - 2 days (if not better) Stand Alone Forms: Work/School Release Print Language: Paraguayan
[2021-08-21 09:08] LABS: Hematocrit 41.2 % (42.0-52.0); Hemoglobin 14.3 g/dl (14.0-18.0); Mean Corpuscular HGB Conc 34.7 g/dl (31.0-36.0); Mean Corpuscular Hemoglobin 32.2 pg (27.0-33.0); Mean Corpuscular Volume 92.8 fL (80.0-98.0); Mean Platelet Volume 9.1 fL (9.4-12.4); Platelet Count 225 X10*3/uL (160-400); Red Blood Count 4.44 X10*6/uL (4.60-5.80); Red Cell Distribution Width 11.9 % (11.0-16.0); White Blood Count 4.2 X10*3/uL (4.8-10.8)
[2021-08-21 09:26] LABS: Anion Gap 10 (12-20); Blood Urea Nitrogen 11 mg/dL (9-16); Calcium 9.6 mg/dL (8.4-10.2); Carbon Dioxide 29 mmol/L (22-29); Chloride 103 mmol/L (96-108); Creatinine Clr Calc Pharmacy 101.4; Estimated Glomerular Filt Rate > 60; Glucose Random 120 mg/dL (60-115); Lipase 29 U/L (8-78); Potassium 4.3 mmol/L (3.3-5.1); Sodium 138 mmol/L (135-145)
[2021-08-21] MEDS: Ketorolac Tromethamine 30 MG/ML VIAL IVPUSH (09:34)
[2021-08-21] MEDS: ondansetron HCL 4 MG/2 ML VIAL IVPUSH ×2 (09:34→11:17)
[2021-08-21] MEDS: Famotidine/PF 20 MG/2 ML VIAL IVPUSH (09:34)
[2021-08-21] MEDS: 0.9 % Sodium Chloride 1,000 ML 999 ML IV (09:35)
[2021-08-21 09:43] LABS: Alanine Aminotransferase 18 U/L (0-40); Albumin Level 4.5 g/dL (3.5-5.0); Alkaline Phosphatase 54 U/L (39-117); Aspartate Amino Transferase 16 U/L (5-37); Bilirubin Direct < 0.2 mg/dL (0.0-0.5); Bilirubin Total 0.3 mg/dL (0.0-1.0); Total Protein 7.3 g/dL (6.5-8.0)
[2021-08-21 09:53] VITALS: RESP 17
[2021-08-21] MEDS: Magnesium Hydrox/Alum Hydrox 30 ML ORAL.SUSP 15 ML PO (11:17)
[2021-08-21] MEDS: Lidocaine HCl Viscous 2 % 15 ML SOLUTION MUCOUS MEM (11:17)
== END 2021-08-21 11:45 | disposition home or self-care (01) ==
PROVIDERS: Emergency Provider Emergency Medicine; PCP Internal Medicine
DX: K29.00 Acute gastritis without bleeding (principal); R10.9 Unspecified abdominal pain; Z79.899 Other long term (current) drug therapy
CPT/HCPCS: 36415; 76705; 80048; 80076; 83690; 85027; 96361; 96374; 96375; 96376; 99284; J1885; J2405

== ENCOUNTER → 2021-09-04 09:23 | Outpatient (BNVA) | payer OTHER, SELFPAY | PROVIDERS: PCP Internal Medicine; Referring Provider Internal Medicine; Visit Provider Nurse Practitioner | DX: K21.9 Gastro-esophageal reflux disease without esophagitis (principal); K58.0 Irritable bowel syndrome with diarrhea; R73.01 Impaired fasting glucose; E78.00 Pure hypercholesterolemia, unspecified; E55.9 Vitamin D deficiency, unspecified | CPT/HCPCS: 99212 ==

== ENCOUNTER 2021-10-02 10:10 | Emergency (ER) | payer OTHER, SELFPAY ==
[2021-10-02 11:09] VITALS: BP 118/78; PULSE 70; RESP 18; TEMP 36.5; O2SAT 99; BMI 25.0
--- NOTE | 2021-10-02 11:22 | ED.EXTPRO ---
HPI - Extremity Problem General Chief complaint: Extremity Injury, Upper Stated complaint: Finger pain Time Seen by Provider: 10/02/21 11:18 Source: patient and family Mode of arrival: ambulatory Limitations: language barrier ( Danish-speaking) History of Present Illness HPI Narrative: 56-year-old male presenting to the ED with complaints of right some skin dryness/ pain intermittent over the past few months. Reports that he develops small little crack/ cuts that her that are not present at this time although he was able to show me a picture he reports that there is never any blisters or any purulent discharge. He denies any fevers or any other symptoms complaints or concerns at this time. Related Data Previous Rx's Medication Instructions Recorded albuterol sulfate 90 mcg/actuation 2 puff INHALATION Q6H PRN #8.5 g 06/24/20 aerosol inhaler (Proventil HFA) cholecalciferol (vitamin D3) 25 25 mcg PO DAILY 90 Days #90 cap 11/09/20 mcg (1,000 unit) capsule atorvastatin 40 mg tablet 40 mg PO DAILY 90 Days #90 tab 01/10/21 famotidine 40 mg tablet (Pepcid) 40 mg PO BEDTIME #30 tab 06/07/21 tamsulosin 0.4 mg capsule 0.4 mg PO BEDTIME 30 Days #30 cap 07/30/21 Dexilant 60 mg capsule, delayed 60 mg PO BEDTIME #30 cap NS 08/14/21 release (dexlansoprazole) hydrocodone 5 mg-acetaminophen 325 1 tab PO Q6H PRN #8 tab 08/21/21 mg tablet ondansetron 4 mg disintegrating 4 mg PO Q8H PRN #20 tab 08/21/21 tablet lipase 3,000-protease 1 cap PO QID 30 Days #120 cap 09/04/21 9,500-amylase 15,000 unit capsule, delayed rel (Creon) bacitracin 500 unit/gram topical 1 appl TOPICAL TID #28 g 10/02/21 ointment cephalexin 500 mg capsule 500 mg PO Q6H 7 Days #28 cap 10/02/21 Allergies Allergy/AdvReac Type Severity Reaction Status Date / Time No Known Allergies Allergy Verified 09/04/21 09:58 [No Known Allergies*] Review of Systems Review of Systems: Constitutional : No Weight loss, No Fever, No Chills, No Night Sweats, No Fatigue, No Malaise ENT/Mouth : No Hearing loss, No Ear Pain, No Nasal Congestion, No Sinus Pain, No Hoarseness, No sore throat, No Rhinorrhea, No Swallowing Difficulty Eyes: No Eye Pain, No Swelling, No Redness, No Foreign Body, No Discharge, No Vision Changes Cardiovascular : No Chest Pain, No SOB, No Dyspnea on Exertion, No Orthopnea, No Edema, No Palpitations Respiratory : No Cough, No Sputum, No Wheezing, No Smoke Exposure, No Dyspnea Gastrointestinal : No Nausea, No Vomiting, No Diarrhea, No Constipation, No abdominal Pain, No Hematochezia, No Melena Genitourinary : no irregular bleeding, No Dysuria, No Urinary Frequency, No Hematuria, No Urinary Incontinence, No Urgency, No Flank Pain, No Urinary Flow Changes, No Hesitancy Musculoskeletal : No joint pain, No Myalgias, No Joint Swelling Skin : + Right thumb dry skin, No Skin Lesions, No rash Neuro : No Weakness, No Numbness, No Paresthesias, No Loss of Consciousness, No Dizziness, No Headache Psych : No Anxiety/Panic, No Depression, No SI/HI/AH/VH, No Social Issues, Heme/Lymph: No Bruising, No Bleeding,No Lymphadenopathy Endocrine : No Polyuria, No Polydipsia, No Temperature Intolerance Yes all other systems are reviewed and are negative [facility] Past Medical History Attestation statement: The following information was validated with the patient. Medical History Allergic rhinitis IBS (irritable bowel syndrome) Impaired fasting glucose Microscopic hematuria Overweight (BMI 25.0-29.9) Pure hypercholesterolemia Superficial gastritis without hemorrhage Vitamin D deficiency Surgical History History of colonoscopy History of esophagogastroduodenoscopy (EGD) Family History Family History (Reviewed 10/02/21 @ 11: by JUAN Valero) Father Medical history unknown Mother Hypertension Maternal Aunt Cancer Maternal Uncle Cancer Social History Social History (Reviewed 10/02/21 @ 11: by JUAN Valero) Housing: Apartment Alcohol intake: current Alcohol intake frequency: a few times a week Alcohol type: beer Patient Tobacco Use Status: Never used Tobacco Second Hand Smoke Exposure: Yes Advance Directives: No Advance Directives Information Provided: No service: No Current occupational status: unemployed Physical Exam Vital Signs: Vital Signs: Last Vital Signs Temp 97.7 F 10/02/21 11:09 Pulse 70 10/02/21 11:09 Resp 18 10/02/21 11:09 BP 118/78 10/02/21 11:09 Pulse Ox 99 10/02/21 11:09 BMI result Body Mass Index 25.0 vital signs have been reviewed as normal and appeared to be correct. Blood pressure normal Heart rate normal. Respiration rate normal. Temperature normal. Oxygen saturation normal. Appearance: Alert. Oriented X3. No acute distress. Head: Normal external exam. Normocephalic. Atraumatic. Eyes: PERRLA. EOMI. Conjunctiva and sclera normal. Eyelids normal. ENT: Pharynx normal. Uvula midline. Moist mucous membranes. Neck: Normal inspection. Neck supple. FROM. CVS: Normal heart rate and rhythm. Respiratory: No respiratory distress. Painless inspiration. Skin: Skin warm and dry. Normal skin color. Normal skin turgor. to the right hand thumb ulnar aspect patient has some dry skin otherwise no signs of infection no rashes/ lesion/purulent drainage not consistent with herpetic jazmine or paronychia. No rashes/lesions/lacerations noted. Extremities: No lower extremity edema. Extremities exhibit normal range of motion. Extremities nontender. Neuro: Oriented X 3. No motor deficit. No sensory deficit. Reflexes normal. Normal steady gait. No focal neuro deficits noted. Vascular: + radial pulses/+ 2 distal pedal pulses/+2 dorsalis pedis b/l. Normal cap refill. No cyanosis noted to upper extremity nails and lower extremity toes nails. Course Course Course Narrative: Patient with what appears like dry skin. Not appearing like herpatic jazmine at this time. I also showed him pictures he reports that never looks like hepatic jazmine. Will DC home with topical bacitracin Keflex instructions return if any new or worsening symptoms follow up with primary care provider. Patient understands agrees with this plan. MDM - Extremity (Nontraumatic) Medical Records Attestation: I reviewed the patient's medical records. Discharge Plan Discharge Clinical Impression: Skin irritation Patient Disposition: Home, Self-Care Instructions: Dermatitis (ED) Prescriptions: New cephalexin 500 mg capsule 500 mg PO Q6H 7 Days Qty: 28 0RF bacitracin 500 unit/gram ointment 1 appl topical TID Qty: 28 0RF No Action cholecalciferol (vitamin D3) 25 mcg (1,000 unit) capsule 25 mcg PO DAILY 90 Days Qty: 90 3RF dexlansoprazole [Dexilant] 60 mg capsule,biphase delayed releas 60 mg PO BEDTIME Qty: 30 6RF albuterol sulfate [Proventil HFA] 90 mcg/actuation HFA aerosol inhaler 2 puff inhalation Q6H PRN (Reason: shortness of breath or wheezing) Qty: 8.5 0RF hydrocodone-acetaminophen 5-325 mg tablet 1 tab PO Q6H PRN (Reason: pain) Qty: 8 0RF ondansetron 4 mg tablet,disintegrating 4 mg PO Q8H PRN (Reason: nausea and vomiting) Qty: 20 0RF atorvastatin 40 mg tablet 40 mg PO DAILY 90 Days Qty: 90 1RF tamsulosin 0.4 mg capsule 0.4 mg PO BEDTIME 30 Days Qty: 30 3RF famotidine [Pepcid] 40 mg tablet 40 mg PO BEDTIME Qty: 30 6RF Creon 3,000-9,500- 15,000 unit capsule,delayed release(DR/EC) 1 cap PO QID 30 Days Qty: 120 6RF Rx Instructions: do not exceed 10,000 unit/kg lipase per 24 hrs Referrals: Gorge Reynolds MD [Primary Care Provider] - 2 days Print Language: Danish
== END 2021-10-02 11:38 | disposition home or self-care (01) ==
PROVIDERS: Emergency Provider Emergency Medicine; PCP Internal Medicine
DX: R21 Rash and other nonspecific skin eruption (principal); Z79.899 Other long term (current) drug therapy
CPT/HCPCS: 99283

== ENCOUNTER 2021-11-15 06:33 | Outpatient (REF) | payer OTHER, SELFPAY ==
[2021-11-15 06:43] LABS: MANUAL DIFF FLAG NO
[2021-11-15 07:14] LABS: Basophils Absolute Auto 0.1 X10*3/uL (0.0-0.2); Eosinophils Absolute Auto 0.1 X10*3/uL (0.0-0.4); Eosinophils Percent Auto 1.9 % (0-4); Hematocrit 44.9 % (42.0-52.0); Hemoglobin 14.8 g/dl (14.0-18.0); Imm Gran Abs Auto 0.01 X10*3/uL (0.00-0.03); Imm Gran Pct Auto 0.2 % (0.0-0.4); Lymphocytes Absolute Auto 2.2 X10*3/uL (1.2-4.9); Lymphocytes Percent Auto 41.5 % (20-40); Mean Corpuscular Hemoglobin 31.6 pg (27.0-33.0); Mean Corpuscular Volume 95.9 fL (80.0-98.0); Mean Platelet Volume 9.9 fL (9.4-12.4); Monocytes Absolute Auto 0.7 X10*3/uL (0.1-1.2); Monocytes Percent Auto 13.1 % (2-11); Neutrophils Absolute Auto 2.2 x10*3/uL (2.0-8.3); Neutrophils Percent Auto 42.3 % (45-73); Platelet Count 233 X10*3/uL (160-400); Red Blood Count 4.68 X10*6/uL (4.60-5.80); Red Cell Distribution Width 11.9 % (11.0-16.0); White Blood Count 5.3 X10*3/uL (4.8-10.8)
[2021-11-15 07:22] LABS: Estimated Average Glucose 108 mg/dL; Hemoglobin A1c % 5.4 %
[2021-11-15 07:40] LABS: Alanine Aminotransferase 17 U/L (0-40); Albumin Level 4.7 g/dL (3.5-5.0); Alkaline Phosphatase 53 U/L (39-117); Anion Gap 13 (12-20); Aspartate Amino Transferase 16 U/L (5-37); Bilirubin Total 0.4 mg/dL (0.0-1.0); Blood Urea Nitrogen 13 mg/dL (9-16); Calcium 9.6 mg/dL (8.4-10.2); Carbon Dioxide 31 mmol/L (22-29); Chloride 101 mmol/L (96-108); Cholesterol 196 mg/dL; Estimated Glomerular Filt Rate > 60; Glucose Fasting 102 mg/dL (60-99); HDL Cholesterol 65 mg/dL; LDL Cholesterol Calculated 104 mg/dl; Potassium 4.7 mmol/L (3.3-5.1); Sodium 140 mmol/L (135-145); Total Protein 7.7 g/dL (6.5-8.0); Triglycerides 137 mg/dL
[2021-11-15 08:03] LABS: Prostate Specific Antigen 0.61 ng/mL (<0.05-4.0); Vitamin D 25-OH Total 32.2 ng/mL (>30)
[2021-11-15 08:06] LABS: Appearance Urine CLEAR; Color Urine YELLOW; Glucose Urine UA NEG (NEG); Leukocyte Esterase Urine NEG (NEG); Nitrite Urine NEG (NEG); PH 7.5 (5.0-8.0); Specific Gravity - Urine 1.015 (1.005-1.025); UACC Culture Trigger NO; Urine Blood TRACE (NEG); Urine Ketones NEG (NEG); Urine Protein NEG (NEG-TRACE)
[2021-11-15 08:32] LABS: RBC Urine 0-2 /HPF (0); WBC Urine 0 /HPF (0-4)
== END 2021-11-15 06:34 | disposition home or self-care (01) ==
LOC: HO.LAB 06:33
PROVIDERS: PCP Internal Medicine; Visit Provider Internal Medicine
DX: Z12.5 Encounter for screening for malignant neoplasm of prostate (principal); N40.0 Benign prostatic hyperplasia without lower urinary tract symptoms; R35.0 Frequency of micturition; E78.00 Pure hypercholesterolemia, unspecified; E55.9 Vitamin D deficiency, unspecified; I10 Essential (primary) hypertension; R73.01 Impaired fasting glucose
CPT/HCPCS: 36415; 80053; 80061; 81001; 81003; 82306; 83036; 84153; 85025

== ENCOUNTER 2022-02-06 08:40 | Emergency (ER) | payer OTHER, SELFPAY ==
[2022-02-06 09:13] VITALS: BP 135/67; PULSE 67; RESP 16; TEMP 36.4; O2SAT 99; BMI 26.6
--- NOTE | 2022-02-06 11:58 | ED.BACK ---
HPI - Back Pain/Injury General Chief Complaint: Back Pain/Injury Stated Complaint: Lower Pain in back Left side Time Seen by Provider: 02/06/22 11:32 Source: patient Mode of arrival: ambulatory History of Present Illness HPI Narrative: 56-year-old male with a past medical history of HLD, vitamin-D deficiency, IBS, presenting to the ED complaining of left-sided low back pain x1 week. Admits pain began after helping a friend load fridge with beers/bending and lifting. Denies direct injury/trauma or fall. Reports pain radiates down left buttock/thigh. Denies numbness, tingling, weakness, urinary incontinence/retention, fever. Has been taking Aleve with mild relief MD elicited complaint: back pain Onset (ago): day(s) Related Data Previous Rx's Medication Instructions Recorded albuterol sulfate 90 mcg/actuation 2 puff inhalation Q6H PRN 06/24/20 aerosol inhaler (Proventil HFA) shortness of breath or wheezing #8.5 grams atorvastatin 40 mg tablet 40 mg PO DAILY 90 days #90 tabs 01/10/21 famotidine 40 mg tablet (Pepcid) 40 mg PO BEDTIME #30 tabs 06/07/21 tamsulosin 0.4 mg capsule 0.4 mg PO BEDTIME 30 days #30 caps 07/30/21 Dexilant 60 mg capsule, delayed 60 mg PO BEDTIME #30 caps 08/14/21 release (dexlansoprazole) hydrocodone 5 mg-acetaminophen 325 1 tab PO Q6H PRN pain #8 tabs 08/21/21 mg tablet ondansetron 4 mg disintegrating 4 mg PO Q8H PRN nausea and 08/21/21 tablet vomiting #20 tabs lipase 3,000-protease 1 cap PO QID 30 days #120 caps 09/04/21 9,500-amylase 15,000 unit capsule, delayed rel (Creon) bacitracin 500 unit/gram topical 1 appl topical TID #28 grams 10/02/21 ointment cephalexin 500 mg capsule 500 mg PO Q6H 7 days #28 caps 10/02/21 cholecalciferol (vitamin D3) 25 25 mcg PO DAILY 90 days #90 caps 11/28/21 mcg (1,000 unit) capsule acetaminophen 500 mg tablet 500 mg PO Q6H PRN fever or pain 02/06/22 (Tylenol Extra Strength) #14 tabs cyclobenzaprine 5 mg tablet 5 mg PO Q8H PRN pain (scale score 02/06/22 7-10) 5 days #14 tabs lidocaine 5 % topical patch 1 patch topical DAILY PRN pain #30 02/06/22 (Lidoderm) ea naproxen 500 mg tablet 500 mg PO BID PRN pain 10 days #20 02/06/22 tabs Allergies Allergy/AdvReac Type Severity Reaction Status Date / Time No Known Allergies Allergy Verified 11/22/21 10:50 [No Known Allergies*] Review of Systems Review of Systems: Constitutional: No Fever, No Chills ENT/Mouth: No Ear Pain, No Nasal Congestion, No sore throat, No Rhinorrhea, No Swallowing Difficulty Cardiovascular: No Chest Pain, No SOB Respiratory: No Cough, No Sputum, No Wheezing Gastrointestinal: No Nausea, No Vomiting, No Diarrhea, No Constipation, No Abdominal pain Genitourinary: No Dysuria, No Hematuria, No Urinary Incontinence/retention, No Urgency, No Flank Pain Musculoskeletal: + joint pain, No Myalgias, No Joint Swelling Skin: No Skin Lesions, No rash Neuro: No Weakness, No Numbness, No Paresthesias Yes all other systems are reviewed and are negative Constitutional: Constitutional: Reports as per HPI Neurologic: Denies Sensory deficit (Neuro) [facility] Past Medical History Attestation statement: The following information was validated with the patient. Medical History Allergic rhinitis IBS (irritable bowel syndrome) Impaired fasting glucose Microscopic hematuria Onychia and paronychia of finger Overweight (BMI 25.0-29.9) Pure hypercholesterolemia Superficial gastritis without hemorrhage Vitamin D deficiency Surgical History History of colonoscopy History of esophagogastroduodenoscopy (EGD) Family History Family History Father Medical history unknown Mother Hypertension Maternal Aunt Cancer Maternal Uncle Cancer Social History Social History Housing: Apartment Alcohol intake: current Alcohol intake frequency: a few times a week Alcohol type: beer Patient Tobacco Use Status: Never used Tobacco Second Hand Smoke Exposure: Yes Advance Directives: No Advance Directives Information Provided: No service: No Current occupational status: unemployed Cognitive needs: No Hearing needs: No Vision needs: No Physical Exam Vital Signs: Vital Signs: Last Vital Signs Temp 97.6 F 02/06/22 09:13 Pulse 67 02/06/22 09:13 Resp 16 02/06/22 09:13 BP 135/67 02/06/22 09:13 Pulse Ox 99 02/06/22 09:13 O2 Del Method 02/06/22 09:13 BMI result Body Mass Index 26.6 Const: General: cooperative, healthy appearing and no acute distress Orientation/consciousness: patient oriented x3 Limitations: no limitations HEENT: Head: Yes normal to inspection and Yes atraumatic Ears: hearing grossly normal bilaterally General nose exam: Normal external nose present Face and sinus: Yes normal facial exam Eyes: General: appearance normal, both eyes and all related structures EOM: EOMs intact bilaterally Neck: Neck: Yes normal visual inspection and Yes no meningeal signs Resp: Effort & Inspection: normal respiratory effort and no respiratory distress Cardio: Rate: regular rate Peripheral pulses: dorsalis pedis present GI: Inspection: Yes normal to inspection Palpation (GI): Soft to palpation, nontender, no guarding and not rigid : General: Yes no CVA tenderness Back/Spine/Pelvis: Other: No midline thoracic/lumbar spinous tenderness/step-off or deformity. + left-sided lower lumbar MSK/buttock tenderness Back: no CVA tenderness Skin: Rashes: no rashes Wounds: no wounds Neuro: Other: Strength intact throughout. No saddle anesthesia. Sensation intact to light touch. Neurovascular intact distally General: patient oriented x3, gait normal, tone normal, moves all extremities, no meningeal signs and no focal motor deficits Gait exam (Neuro): Normal gait present Motor exam (neuro): 5/5 motor strength present throughout Sensory Exam: No Sensory deficit (Neuro) Extrem: General: Yes normal to inspection MDM - Back Pain/Injury MDM Narrative Medical decision making narrative: 56-year-old male with a past medical history of HLD, vitamin-D deficiency, IBS, presenting to the ED complaining of left-sided low back pain x1 week. On exam vital signs stable, NAD, nontoxic appearing, physical exam as above, no midline spinous tenderness or red flag symptoms. Pain reproducible. Concern for MSK pain/spasming/strain vs sciatica. Low suspicion for cauda equina, cord compression, epidural abscess, pyelo/UTI or testicular torsion Plan: Symptomatic treatment, PCP follow-up Medical Records Attestation: I reviewed the patient's medical records. Lab Data Attestation: I reviewed the patient's lab results. Discharge Plan Discharge Clinical Impression: Strain of lumbar region Patient Disposition: Home, Self-Care Instructions: Acute Low Back Pain (ED) Additional Instructions: Your pain is likely musculoskeletal Flexeril is a muscle relaxer, take at night as it makes you drowsy, do not drive, drink alcohol, or operate machinery while taking it Naproxen as an anti-inflammatory / pain medication, take with food Lidoderm patches are numbing patches, apply to painful area In addition take Tylenol at home If symptoms persist or worsen, pain becomes unbearable, you developed urinary retention or incontinence, or weakness return to the ED Es probable que sanchez dolor sea musculoesquel?tom Flexeril es un relajante muscular, t?david por la noche ya que te adormece, no conduzcas, bebas alcohol ni operes maquinaria mientras lo josé. Naproxeno baldomero medicamento antiinflamatorio/analg?sico, t?barrientos con alimentos Los parches de Lidoderm son parches anest?sicos, se aplican en el ?serafin dolorida Adem?s rosa Tylenol en casa Si los s?ntomas persisten o empeoran, el dolor se vuelve insoportable, desarroll? retenci?n urinaria o incontinencia, o debilidad, regrese al servicio de urgencias. Prescriptions: New acetaminophen [Tylenol Extra Strength] 500 mg tablet 500 mg PO Q6H PRN (Reason: fever or pain) Qty: 14 0RF lidocaine [Lidoderm] 5 % adhesive patch,medicated 1 patch topical DAILY MDD remove after 12 hours PRN (Reason: pain) Qty: 30 0RF Rx Instructions: leave on most painful area for up to 12 hrs naproxen 500 mg tablet 500 mg PO BID PRN (Reason: pain) 10 Days Qty: 20 0RF cyclobenzaprine 5 mg tablet 5 mg PO Q8H PRN (Reason: pain (scale score 7-10)) 5 Days Qty: 14 0RF No Action dexlansoprazole [Dexilant] 60 mg capsule,biphase delayed releas 60 mg PO BEDTIME Qty: 30 6RF cholecalciferol (vitamin D3) 25 mcg (1,000 unit) capsule 25 mcg PO DAILY 90 Days Qty: 90 3RF albuterol sulfate [Proventil HFA] 90 mcg/actuation HFA aerosol inhaler 2 puff inhalation Q6H PRN (Reason: shortness of breath or wheezing) Qty: 8.5 0RF hydrocodone-acetaminophen 5-325 mg tablet 1 tab PO Q6H PRN (Reason: pain) Qty: 8 0RF ondansetron 4 mg tablet,disintegrating 4 mg PO Q8H PRN (Reason: nausea and vomiting) Qty: 20 0RF cephalexin 500 mg capsule 500 mg PO Q6H 7 Days Qty: 28 0RF bacitracin 500 unit/gram ointment 1 appl topical TID Qty: 28 0RF atorvastatin 40 mg tablet 40 mg PO DAILY 90 Days Qty: 90 1RF tamsulosin 0.4 mg capsule 0.4 mg PO BEDTIME 30 Days Qty: 30 3RF famotidine [Pepcid] 40 mg tablet 40 mg PO BEDTIME Qty: 30 6RF Creon 3,000-9,500- 15,000 unit capsule,delayed release(DR/EC) 1 cap PO QID 30 Days Qty: 120 6RF Rx Instructions: do not exceed 10,000 unit/kg lipase per 24 hrs Referrals: Gorge Reynolds MD [Primary Care Provider] - 5 days Print Language: [place]
[2022-02-06] MEDS: Cyclobenzaprine HCl 10 MG TABLET PO (12:19)
[2022-02-06] MEDS: Ketorolac Tromethamine 30 MG/ML VIAL IM (12:20)
[2022-02-06] MEDS: Lidocaine 4 % Patch ADH..PATCH 1 PATCH TRANSDERMA (12:20)
== END 2022-02-06 12:29 | disposition home or self-care (01) ==
PROVIDERS: Emergency Provider Emergency Medicine; PCP Internal Medicine
DX: M54.50 Low back pain, unspecified (principal); E55.9 Vitamin D deficiency, unspecified; Z79.899 Other long term (current) drug therapy
CPT/HCPCS: 96372; 99283; 99284; J1885

== ENCOUNTER 2022-03-14 08:08 | Outpatient (REF) | payer OTHER, SELFPAY ==
[2022-03-14 08:38] LABS: MANUAL DIFF FLAG NO
[2022-03-14 09:15] LABS: Basophils Percent Auto 0.6 % (0-2); Eosinophils Absolute Auto 0.1 X10*3/uL (0.0-0.4); Eosinophils Percent Auto 2.7 % (0-4); Imm Gran Abs Auto 0.01 X10*3/uL (0.00-0.03); Imm Gran Pct Auto 0.2 % (0.0-0.4); Lymphocytes Absolute Auto 1.8 X10*3/uL (1.2-4.9); Lymphocytes Percent Auto 34.9 % (20-40); Mean Corpuscular HGB Conc 33.3 g/dl (31.0-36.0); Mean Corpuscular Hemoglobin 31.3 pg (27.0-33.0); Mean Corpuscular Volume 93.9 fL (80.0-98.0); Mean Platelet Volume 9.3 fL (9.4-12.4); Monocytes Absolute Auto 0.7 X10*3/uL (0.1-1.2); Monocytes Percent Auto 13.1 % (2-11); Neutrophils Absolute Auto 2.5 x10*3/uL (2.0-8.3); Neutrophils Percent Auto 48.5 % (45-73); Platelet Count 284 X10*3/uL (160-400); Red Blood Count 4.79 X10*6/uL (4.60-5.80); Red Cell Distribution Width 11.9 % (11.0-16.0); White Blood Count 5.2 X10*3/uL (4.8-10.8)
[2022-03-14 09:50] LABS: Alanine Aminotransferase 20 U/L (0-40); Albumin Level 4.9 g/dL (3.5-5.0); Alkaline Phosphatase 54 U/L (39-117); Anion Gap 14 (12-20); Aspartate Amino Transferase 19 U/L (5-37); Bilirubin Total 0.6 mg/dL (0.0-1.0); Blood Urea Nitrogen 12 mg/dL (9-16); Calcium 9.7 mg/dL (8.4-10.2); Carbon Dioxide 30 mmol/L (22-29); Chloride 101 mmol/L (96-108); Cholesterol 206 mg/dL; Estimated Glomerular Filt Rate > 60; Glucose Fasting 109 mg/dL (60-99); HDL Cholesterol 69 mg/dL; LDL Cholesterol Calculated 121 mg/dl; Potassium 4.8 mmol/L (3.3-5.1); Sodium 140 mmol/L (135-145); Total Protein 7.8 g/dL (6.5-8.0); Triglycerides 83 mg/dL
[2022-03-14 09:54] LABS: Estimated Average Glucose 108 mg/dL; Hemoglobin A1c % 5.4 %
[2022-03-14 10:15] LABS: Appearance Urine Clear; Color Urine Yellow; Glucose Urine UA Negative (Negative); Leukocyte Esterase Urine Negative (Negative); Nitrite Urine Negative (Negative); PH 7.5 (5.0-9.0); UMIC TRIGGER UACC YES; Urine Blood Trace (Negative); Urine Ketones Negative (Negative); Urine Protein Negative (Neg-Trace)
[2022-03-14 10:21] LABS: Bacteria Urine None Seen (None Seen); Hyaline Casts Urine 0-2 /LPF (0-2); Squamous Epithelial Cell Urine 0-2 /HPF (0-2); WBC Urine 0-5 /HPF (0-5)
[2022-03-14 10:28] LABS: Vitamin D 25-OH Total 29.5 ng/mL (>30)
== END 2022-03-14 08:09 | disposition home or self-care (01) ==
LOC: HO.LAB 08:08
PROVIDERS: PCP Internal Medicine; Visit Provider Internal Medicine
DX: I10 Essential (primary) hypertension (principal); E78.00 Pure hypercholesterolemia, unspecified; E55.9 Vitamin D deficiency, unspecified; R73.01 Impaired fasting glucose
CPT/HCPCS: 36415; 80053; 80061; 81001; 81003; 82306; 83036; 85025

== ENCOUNTER 2022-05-05 09:04 | Inpatient (IN) | payer OTHER, SELFPAY ==
[2022-05-05] VITALS (7 sets, daily range): BP systolic 125–138; BP diastolic 68–84; PULSE 76–112; RESP 16–24; TEMP 36.7–39.5; O2SAT 96–99; BMI 26.6
--- NOTE | ~2022-05-05 | XR_ITS ---
EXAMINATION: XR CHEST CLINICAL INFORMATION: Cough. COMPARISON: 06/23/2020 chest radiograph. TECHNIQUE: Frontal view of the chest was obtained. FINDINGS: No significant abnormality is noted involving the heart, lungs, mediastinum, bony thorax or soft tissues. XR/XR chest 1V IMPRESSION: No acute cardiopulmonary process.
--- NOTE | ~2022-05-05 | CT_ITS ---
EXAMINATION: CT ABDOMEN AND PELVIS WITH CONTRAST CLINICAL INFORMATION: Abdominal pain, nausea vomiting and diarrhea and fever COMPARISON: Previous CT of the abdomen and pelvis December 2017 TECHNIQUE: Multidetector volumetric images were obtained from the superior aspect of the liver through the pubic symphysis following administration 85 mL of Omnipaque 350 intravenous contrast. Sagittal and coronal reformatted images were obtained on the technologist's workstation. Oral contrast: Yes This CT examination was performed using dose optimization techniques as appropriate, variously including the following: *Automated exposure control *Adjustment of mA and/or kV according to patient size (this includes techniques or standardized protocols for targeted exams where dose is matched to indication/reason for exam; i.e. extremities or head) *Use of iterative reconstruction technique DLP: 5-0 mGy-cm FINDINGS: LUNG BASES: The visualized lung bases are unremarkable. LIVER, GALLBLADDER, AND BILIARY TREE: The liver is normal in size, shape, and attenuation. No focal hepatic lesion or biliary ductal dilatation is present. The gallbladder is unremarkable with no evidence of radiopaque gallstones, gallbladder wall thickening, or obvious pericholecystic inflammatory changes. PANCREAS: Unremarkable. SPLEEN: Unremarkable. ADRENAL GLANDS: Unremarkable. KIDNEYS AND URETERS: Small 2 mm stone in the lower pole the left kidney axial image 279 series 4. The kidneys are otherwise unremarkable. BLADDER: Unremarkable. GASTROINTESTINAL TRACT: There is wall thickening and edema of the distal ileum, cecum and right colon suggestive of enterocolitis. No evidence of obstruction, perforation or abscess. The appendix is normal. The stomach is normal. ABDOMINAL WALL: Small umbilical hernia containing fat. LYMPH NODES: Normal. VASCULAR: Unremarkable. PELVIC VISCERA: Unremarkable. OSSEOUS STRUCTURES: Unremarkable. CT/CT abdomen pelvis w IV con IMPRESSION: Wall thickening and edema of the distal ileum, cecum and right colon suggestive of enterocolitis. small left renal stone. Fleischner guidelines were followed.
[2022-05-05] MEDS: Acetaminophen 325 MG TABLET 975 MG PO (09:22)
[2022-05-05 09:46] LABS: COVID-19 Test Negative (Negative); IDNOW Serial# 16C4AD1C; IDNOW Serial# BCCEAD1C; Influenza A Negative (Negative); Influenza B2 Negative (Negative)
[2022-05-05 10:36] LABS: MANUAL DIFF FLAG NO
--- NOTE | 2022-05-05 10:36 | ED_ITS ---
HPI - Nausea/Vomiting/Diarrhea General Chief complaint: Nausea/Vomiting/Diarrhea Stated complaint: n/v/d lightheaded Time Seen by Provider: 05/05/22 09:58 Source: patient Mode of arrival: ambulatory History of Present Illness HPI Narrative: 56-year-old male with a past medical history of IBS, HLD, vitamin-D deficiency, presenting to the ED complaining of diffuse abdominal pain, nausea, and watery nonbloody diarrhea since last night. Also reports dry cough. Denies recent antibiotic use, suspicious food intake, vomiting, dysuria / hematuria, flank pain MD elicited complaint: nausea, diarrhea and abdominal pain Onset (ago): hour(s) Related Data Previous Rx's Medication Instructions Recorded albuterol sulfate 90 mcg/actuation 2 puff inhalation Q6H PRN 06/24/20 aerosol inhaler (Proventil HFA) shortness of breath or wheezing #8.5 grams famotidine 40 mg tablet (Pepcid) 40 mg PO BEDTIME #30 tabs 06/07/21 tamsulosin 0.4 mg capsule 0.4 mg PO BEDTIME 30 days #30 caps 07/30/21 lipase 3,000-protease 1 cap PO QID 30 days #120 caps 09/04/21 9,500-amylase 15,000 unit capsule, delayed rel (Creon) cholecalciferol (vitamin D3) 25 25 mcg PO DAILY 90 days #90 caps 11/28/21 mcg (1,000 unit) capsule acetaminophen 500 mg tablet 500 mg PO Q6H PRN fever or pain 02/06/22 (Tylenol Extra Strength) #14 tabs cyclobenzaprine 5 mg tablet 5 mg PO Q8H PRN pain (scale score 02/06/22 7-10) 5 days #14 tabs lidocaine 5 % topical patch 1 patch topical DAILY PRN pain #30 02/06/22 (Lidoderm) ea naproxen 500 mg tablet 500 mg PO BID PRN pain 10 days #20 02/06/22 tabs atorvastatin 40 mg tablet 40 mg PO DAILY 90 days #90 tabs 03/19/22 Dexilant 60 mg capsule, delayed 60 mg PO BEDTIME #30 caps 03/22/22 release (dexlansoprazole) terbinafine HCl 250 mg tablet 250 mg PO DAILY 30 days #30 tabs 03/22/22 Allergies Allergy/AdvReac Type Severity Reaction Status Date / Time No Known Allergies Allergy Verified 03/22/22 11:19 [No Known Allergies*] Review of Systems Review of Systems: Constitutional: + Fever, No Chills, No Fatigue, No Malaise ENT/Mouth: No Ear Pain, No Nasal Congestion, No sore throat, No Rhinorrhea, No Swallowing Difficulty Eyes: No Eye Pain, No Swelling, No Redness, No Foreign Body, No Discharge, No Vision Changes Cardiovascular: No Chest Pain, No SOB, No Edema, No Palpitations Respiratory: + Cough, No Sputum, No Dyspnea Gastrointestinal: + Nausea, No Vomiting, + Diarrhea, No Constipation, + Abdominal pain, No Hematochezia, No Melena Genitourinary: No Dysuria, No Urinary Frequency, No Hematuria, No Urinary Incontinence/retention, No Flank Pain Musculoskeletal: No joint pain, No Myalgias, No Joint Swelling Skin: No Skin Lesions, No rash Neuro: No Weakness, No Dizziness, No Headache Yes all other systems are reviewed and are negative Constitutional: Constitutional: Reports as per [facility] Past Medical History Attestation statement: The following information was validated with the patient. Medical History Allergic rhinitis IBS (irritable bowel syndrome) Impaired fasting glucose Microscopic hematuria Onychia and paronychia of finger Overweight (BMI 25.0-29.9) Pure hypercholesterolemia Superficial gastritis without hemorrhage Vitamin D deficiency Surgical History History of colonoscopy History of esophagogastroduodenoscopy (EGD) Family History Family History Father Medical history unknown Mother Hypertension Maternal Aunt Cancer Maternal Uncle Cancer Social History Social History Housing: Apartment Alcohol intake: current Alcohol intake frequency: a few times a week Alcohol type: beer Patient Tobacco Use Status: Never used Tobacco Second Hand Smoke Exposure: Yes Advance Directives: No service: No Current occupational status: unemployed Cognitive needs: No Hearing needs: No Vision needs: No Physical Exam Vital Signs: Vital Signs: Last Vital Signs Temp 98.1 F 05/05/22 12:52 Pulse 76 05/05/22 11:04 Resp 16 05/05/22 11:04 BP 127/73 05/05/22 11:04 Pulse Ox 96 05/05/22 11:04 O2 Del Method 05/05/22 11:04 BMI result Body Mass Index 26.6 Const: General: cooperative, healthy appearing and no acute distress Orientation/consciousness: patient oriented x3 Limitations: no limitations HEENT: Head: Yes normal to inspection and Yes atraumatic Ears: hearing grossly normal bilaterally General nose exam: Normal external nose present Face and sinus: Yes normal facial exam Throat: Yes posterior oropharynx normal, Yes tonsils normal and Yes uvula midline Eyes: General: appearance normal, both eyes and all related structures EOM: EOMs intact bilaterally Neck: Neck: Yes normal visual inspection and Yes no meningeal signs Resp: Effort & Inspection: normal respiratory effort and no respiratory distress Auscultation: clear to auscultation bilaterally, no crackles, no rales, no rhonchi and no wheezes Cardio: Rate: regular rate Heart sounds: S1 normal heart sound present and S2 normal heart sound present GI: Inspection: Yes normal to inspection Palpation (GI): Soft to palpation, nontender, Guarding due to palpation present (GI) (diffusely) in the LLQ and in the RUQ and not rigid : General: Yes no CVA tenderness Back/Spine/Pelvis: Back: no CVA tenderness Skin: Rashes: no rashes Wounds: no wounds Neuro: General: patient oriented x3, tone normal and no meningeal signs Gait exam (Neuro): Normal gait present Extrem: General: Yes normal to inspection Course Course Course Narrative: -1234-- no leukocytosis. H&H stable. Mild hyponatremia to 133 likely from decreased p.o. intake - UA with blood & rbc's, not infected XR chest 1V IMPRESSION: No acute cardiopulmonary process. CT abdomen pelvis w IV con IMPRESSION: Wall thickening and edema of the distal ileum, cecum and right colon suggestive of enterocolitis. small left renal stone. ? Fleischner guidelines were followed. > results discussed with patient and at bedside. Patient reports continued abdominal pain and discomfort. Will give additional L IVF, pain control, & stool studies ordered. Will p.o. challenge -1400-- patient is still in significant amount of pain, additional IV Toradol ordered, stool studies pending -patient now with persistent nausea and vomiting > plan to admit for further management Medications Administered Discontinued Medications Generic Name Dose Route Start Last Admin Trade Name Amador PRN Reason Stop Dose Admin Acetaminophen 975 mg 05/05/22 09:14 05/05/22 09:22 Acetaminophen 325 Mg Tablet PO 05/05/22 09:15 975 mg ONCE ONE Administration Sodium Chloride 1,000 mls @ 999 mls/hr 05/05/22 10:15 05/05/22 12:37 Ns IV 05/05/22 11:15 Infused .Q1H1M HORACE Infusion Piperacillin Sod/Tazobactam 100 mls @ 200 mls/hr 05/05/22 10:11 05/05/22 12:37 Sod 4.5 gm/ Sodium Chloride IV 05/05/22 10:40 Infused ONCE ONE Infusion Sodium Chloride 1,000 mls @ 999 mls/hr 05/05/22 12:45 05/05/22 12:51 Ns IV 05/05/22 13:45 999 mls/hr .Q1H1M HORACE Administration Iohexol 85 ml 05/05/22 11:20 05/05/22 11:21 Iohexol 350 Mg/Ml 75 Ml Infus..Btl IV 05/05/22 11:21 85 ml ONCE ONE Administration Ketorolac Tromethamine 15 mg 05/05/22 10:40 05/05/22 11:00 Ketorolac Tromethamine 15 Mg/Ml Vial IVPUSH 05/05/22 10:41 15 mg ONCE ONE Administration Morphine Sulfate 2 mg 05/05/22 12:39 05/05/22 12:51 Morphine Sulfate 2 Mg/Ml Cartridge IVPUSH 05/05/22 12:40 2 mg ONCE ONE Administration Protocol Ondansetron HCl 4 mg 05/05/22 10:09 05/05/22 11:00 Ondansetron Hcl 4 Mg/2 Ml Vial IVPUSH 05/05/22 10:10 4 mg ONCE ONE Administration Medical Decision Making Medical Decision Making MDM Narrative: 56-year-old male with a past medical history of IBS, HLD, vitamin-D deficiency, presenting to the ED complaining of diffuse abdominal pain, nausea, and watery nonbloody diarrhea since last night. Also reports dry cough. On exam febrile 102.9 in triage, lungs CTA, abdomen soft diffusely ttp > lower abd, no rebound or guarding, no CVA tenderness. Concern for viral illness vs appendicitis/diverticulitis vs renal stone. Lower suspicion for cholecystitis /lithiasis or pancreatitis. Lower suspicion for C diff plan: Labs, UA, lactic/ blood cultures, IVF, empiric IV antibiotics, CT AP Differential Diagnoses: Differential diagnosis ( as above) Consideration of admission/observation: Consideration of Admission/Observation Lab Attestation: I reviewed the patient's lab results. Independent historian (e.g., spouse, EMS, friend): Independent historian (e.g., spouse, EMS, friend) Clinical information obtained from an independent h istorian. History obtained from or confirmed by: Spouse Critical Care Time Critical Care Time Critical Care Time: Yes Total Critical Care Time: 35 Attestation: I have personally provided critical care time exclusive of time spent on separately billable procedures. Time includes review of lab data, radiology results, discussion with consultants, and monitoring for potential decompensation. Intervention performed as documented. Discharge Plan Discharge Clinical Impression: Enterocolitis Patient Disposition: Admitted As Inpatient
[2022-05-05 10:38] LABS: Appearance Urine Clear; Color Urine Yellow; Glucose Urine UA 100 mg/dL (Negative); Leukocyte Esterase Urine Negative (Negative); Nitrite Urine Negative (Negative); PH 6.5 (5.0-9.0); Specific Gravity - Urine >= 1.030 (1.005-1.025); UMIC TRIGGER UACC YES; Urine Blood Moderate (2+) (Negative); Urine Ketones 80 mg/dL (Negative); Urine Protein 100 (2+) mg/dL (Neg-Trace)
[2022-05-05 10:39] LABS: Basophils Percent Auto 0.2 % (0-2); Hematocrit 39.3 % (42.0-52.0); Imm Gran Abs Auto 0.04 X10*3/uL (0.00-0.03); Imm Gran Pct Auto 0.4 % (0.0-0.4); Lymphocytes Absolute Auto 0.3 X10*3/uL (1.2-4.9); Lymphocytes Percent Auto 2.9 % (20-40); Mean Corpuscular HGB Conc 35.6 g/dl (31.0-36.0); Mean Corpuscular Hemoglobin 31.9 pg (27.0-33.0); Mean Corpuscular Volume 89.5 fL (80.0-98.0); Mean Platelet Volume 9.3 fL (9.4-12.4); Monocytes Absolute Auto 1.1 X10*3/uL (0.1-1.2); Neutrophils Absolute Auto 8.2 x10*3/uL (2.0-8.3); Neutrophils Percent Auto 85.5 % (45-73); Platelet Count 197 X10*3/uL (160-400); Red Blood Count 4.39 X10*6/uL (4.60-5.80); Red Cell Distribution Width 11.7 % (11.0-16.0); White Blood Count 9.6 X10*3/uL (4.8-10.8)
[2022-05-05 10:43] LABS: Bacteria Urine None Seen (None Seen); Hyaline Casts Urine 0-2 /LPF (0-2); RBC Urine >20 /HPF (0-2); Squamous Epithelial Cell Urine 0-2 /HPF (0-2); WBC Urine 0-5 /HPF (0-5)
[2022-05-05 10:50] LABS: Lactic Acid 0.9 mmol/L (0.5-2.0)
[2022-05-05 10:55] LABS: Alanine Aminotransferase 20 U/L (0-40); Albumin Level 4.7 g/dL (3.5-5.0); Alkaline Phosphatase 66 U/L (39-117); Anion Gap 15 (12-20); Aspartate Amino Transferase 15 U/L (5-37); Bilirubin Direct 0.3 mg/dL (0.0-0.5); Blood Urea Nitrogen 10 mg/dL (9-16); Calcium 9.2 mg/dL (8.4-10.2); Carbon Dioxide 22 mmol/L (22-29); Chloride 99 mmol/L (96-108); Creatinine Clr Calc Pharmacy 91.9; Estimated Glomerular Filt Rate > 60; Glucose Random 138 mg/dL (60-115); Lipase 29 U/L (8-78); Magnesium 1.6 mg/dL (1.6-2.6); Potassium 3.4 mmol/L (3.3-5.1); Sodium 133 mmol/L (135-145); Total Protein 7.6 g/dL (6.5-8.0)
[2022-05-05] MEDS: 0.9 % Sodium Chloride 1,000 ML 999 ML IV ×2 (10:59→12:51)
[2022-05-05] MEDS: ondansetron HCL 4 MG/2 ML VIAL IVPUSH (11:00)
[2022-05-05] MEDS: Piperacillin Sodium/Tazobactam 4.5 GM in 0.9 % Sodium Chloride 100 ML IV (11:00)
[2022-05-05] MEDS: Ketorolac Tromethamine 15 MG/ML VIAL IVPUSH ×2 (11:00→14:21)
[2022-05-05 11:05] LABS: Bilirubin Total 0.8 mg/dL (0.0-1.0)
--- NOTE | 2022-05-05 11:13 | PC.NURSE ---
Pt alert and oriented, respirations even and unlabored. At CT scan and X-ray at this time. Medicated per the MAR. at bedside.
[2022-05-05] MEDS: iohexoL 350 MG/ML 75 ML INFUS..BTL 85 ML IV (11:21)
[2022-05-05 12:01] LABS: Influenza A PCR NEGATIVE (Negative); Influenza B PCR NEGATIVE (Negative); Resp Syncy Virus RNA Qual PCR NEGATIVE (Negative); SARS COV2 PCR INHOUSE NEGATIVE (Negative)
[2022-05-05] MEDS: Morphine Sulfate 2 MG/ML CARTRIDGE IVPUSH ×2 (12:51→21:15)
[2022-05-05] MEDS: Metoclopramide HCl 10 MG/2 ML VIAL IVPUSH (14:21)
[2022-05-05 14:25] LABS: CDiff Gene PCR NEGATIVE (Negative)
[2022-05-05 14:29] LABS: Leukocytes Stool Qualitative MANY: >10/OIF (NEGATIVE)
--- NOTE | 2022-05-05 14:33 | PHA.MEDREC ---
Pharmacy Consult ? Medication Reconciliation Pharmacy has completed the medication reconciliation. Spoke to pt's partner Radha who was with patient, says he only takes omeprazole. Clarified that he does not take any of the recent prescriptions that were in claim history and I was told he says that is the only one he ever takes.
--- NOTE | 2022-05-05 14:45 | PM.IMHP ---
History of Present Illness Date of Service: 05/05/22 Attending physician on admission: Donnie Maier Chief Complaint: abdominal pain 56-year-old man presenting complaints diffuse abdominal pain, nausea, vomiting and watery stool that is dark in color. He denied fever, chills, recent travel, sick contacts, improperly cooked foods, chest pain, shortness of breath. He reported that the pain started pretty suddenly yesterday and denies ever having pain like this before. He has been diagnosed with IBS and GERD. Abdominal CT showed wall thickening and edema of the distal ileum, cecum and right colon suggestive of enterocolitis. He was noted to have fever, tachycardia, tachypnea. In the ER, he was given Zosyn, Toradol, Zofran, IV fluids, morphine, Raglan. He will be admitted for further management and treatment of sepsis secondary to enterocolitis. Review of Systems Review of Systems: Denies any recent fever chills or decrease in appetite respiratory denies any shortness of breath coverage production cardiovascular denied chest pain gastrointestinal see HPI genitourinary denies any dysuria frequency or hematuria musculoskeletal denies any joint pain or swelling neuropsych denies any weakness or seizures all other systems reviewed are negative [facility] Medical History Allergic rhinitis IBS (irritable bowel syndrome) Impaired fasting glucose Microscopic hematuria Onychia and paronychia of finger Overweight (BMI 25.0-29.9) Pure hypercholesterolemia Superficial gastritis without hemorrhage Vitamin D deficiency Family History Father Medical history unknown Mother Hypertension Maternal Aunt Cancer Maternal Uncle Cancer Surgical History History of colonoscopy History of esophagogastroduodenoscopy (EGD) Social History Housing: Apartment Alcohol intake: current Alcohol intake frequency: a few times a week Alcohol type: beer Patient Tobacco Use Status: Never used Tobacco Second Hand Smoke Exposure: Yes Advance Directives: No service: No Current occupational status: unemployed Cognitive needs: No Hearing needs: No Vision needs: No Meds Allergies Allergy/AdvReac Type Severity Reaction Status Date / Time No Known Allergies Allergy Verified 03/22/22 11:19 [No Known Allergies*] Home Medications Medication Instructions Recorded Confirmed Last Taken Type omeprazole 20 mg capsule,delayed 20 mg PO DAILY@0630 05/05/22 05/05/22 Unknown History release Physical Exam Vital Signs and Narrative: Vital Signs: Last Vital Signs Temp 98.1 F 05/05/22 12:52 Pulse 76 05/05/22 11:04 Resp 16 05/05/22 11:04 BP 127/73 05/05/22 11:04 Pulse Ox 96 05/05/22 11:04 O2 Del Method 05/05/22 11:04 BMI result Body Mass Index 26.6 Appearing in no acute distress head is normocephalic atraumatic eyes pupils are PERRLA sclera is anicteric mouth throat mucous membranes are intact and moist neck is supple no lymphadenopathy, no JVD noted lung sounds are clear to auscultation heart regular rate rhythm, clear S1, S2 positive bowel sounds, abdomen is soft, nontender neuro patient is alert x3, no focal deficits Results Labs CBC and Chem 7: 05/05/22 10:29 05/05/22 10:29 Labs: Laboratory Results - last 24 hr 05/05/22 05/05/22 05/05/22 09:24 09:24 10:29 MCV MCH MCHC RDW Plt Count MPV Immature Gran % (Auto) Neut % (Auto) Lymph % (Auto) [place] % (Auto) Eos % (Auto) Baso % (Auto) Lymph # (Auto) [place] # (Auto) Eos # (Auto) Baso # (Auto) Abs Immat Gran (auto) Absolute Neuts (auto) Absolute Nucleated RBC Nucleated RBC % (auto) Anion Gap Estim Creat Clear Calc Estimated GFR Random Glucose Lactic Acid Calcium Magnesium Total Bilirubin Direct Bilirubin AST ALT Alkaline Phosphatase Total Protein Albumin Lipase Urine Color Urine Appearance Urine pH Ur Specific [place] Urine Protein Urine Glucose (UA) Urine Ketones Urine Blood Urine Nitrite Ur Leukocyte Esterase Urine RBC Urine WBC Ur Squamous Epith Cells Urine Bacteria Hyaline Casts Stool Leukocytes, Qual C. difficile Tox B Gene COVID-19 (ANGELITO) Negative COVID-19 Clin Com See Note Influenza Type A (BLOSSOM) Negative Influenza Type A (PCR) NEGATIVE Influenza Type B (BLOSSOM) Negative Influenza Type B (PCR) NEGATIVE Influenza A & B Note See Note RSV RNA Qual (PCR) NEGATIVE SARS-CoV-2 RNA (RT-PCR) NEGATIVE 05/05/22 05/05/22 05/05/22 10:29 10:29 10:29 MCV 89.5 MCH 31.9 MCHC 35.6 RDW 11.7 Plt Count 197 D MPV 9.3 L Immature Gran % (Auto) 0.4 Neut % (Auto) 85.5 H Lymph % (Auto) 2.9 L [place] % (Auto) 11.0 Eos % (Auto) 0.0 Baso % (Auto) 0.2 Lymph # (Auto) 0.3 L [place] # (Auto) 1.1 Eos # (Auto) 0.0 Baso # (Auto) 0.0 Abs Immat Gran (auto) 0.04 H Absolute Neuts (auto) 8.2 Absolute Nucleated RBC 0.000 Nucleated RBC % (auto) 0.0 Anion Gap 15 Estim Creat Clear Calc 91.9 Estimated GFR > 60 Random Glucose 138 H Lactic Acid 0.9 Calcium 9.2 Magnesium 1.6 Total Bilirubin 0.8 Direct Bilirubin 0.3 AST 15 ALT 20 Alkaline Phosphatase 66 D Total Protein 7.6 Albumin 4.7 Lipase 29 Urine Color Urine Appearance Urine pH Ur Specific [place] Urine Protein Urine Glucose (UA) Urine Ketones Urine Blood Urine Nitrite Ur Leukocyte Esterase Urine RBC Urine WBC Ur Squamous Epith Cells Urine Bacteria Hyaline Casts Stool Leukocytes, Qual C. difficile Tox B Gene COVID-19 (ANGELITO) COVID-19 Clin Com Influenza Type A (BLOSSOM) Influenza Type A (PCR) Influenza Type B (BLOSSOM) Influenza Type B (PCR) Influenza A & B Note RSV RNA Qual (PCR) SARS-CoV-2 RNA (RT-PCR) 05/05/22 05/05/22 05/05/22 10:29 12:55 12:55 MCV MCH MCHC RDW Plt Count MPV Immature Gran % (Auto) Neut % (Auto) Lymph % (Auto) [place] % (Auto) Eos % (Auto) Baso % (Auto) Lymph # (Auto) [place] # (Auto) Eos # (Auto) Baso # (Auto) Abs Immat Gran (auto) Absolute Neuts (auto) Absolute Nucleated RBC Nucleated RBC % (auto) Anion Gap Estim Creat Clear Calc Estimated GFR Random Glucose Lactic Acid Calcium Magnesium Total Bilirubin Direct Bilirubin AST ALT Alkaline Phosphatase Total Protein Albumin Lipase Urine Color Yellow Urine Appearance Clear Urine pH 6.5 Ur Specific [place] >= 1.030 H Urine Protein 100 (2+) H Urine Glucose (UA) 100 H Urine Ketones 80 Urine Blood Moderate (2+) H Urine Nitrite Negative Ur Leukocyte Esterase Negative Urine RBC >20 H Urine WBC 0-5 Ur Squamous Epith Cells 0-2 Urine Bacteria None Seen Hyaline Casts 0-2 Stool Leukocytes, Qual MANY: >10/OIF C. difficile Tox B Gene NEGATIVE COVID-19 (ANGELITO) COVID-19 Clin Com Influenza Type A (BLOSSOM) Influenza Type A (PCR) Influenza Type B (BLOSSOM) Influenza Type B (PCR) Influenza A & B Note RSV RNA Qual (PCR) SARS-CoV-2 RNA (RT-PCR) Imaging Radiologist's Impressions: Impressions Chest X-Ray 05/05/22 11:26 IMPRESSION: No acute cardiopulmonary process. Abdomen/Pelvis CT 05/05/22 11:29 IMPRESSION: Wall thickening and edema of the distal ileum, cecum and right colon suggestive of enterocolitis. small left renal stone. Fleischner guidelines were followed. Assessment and Plan (1) Enterocolitis: Status: Acute Plan 56-year-old man admitted with sepsis secondary to and after colitis with nausea vomiting and diarrhea Sepsis secondary to Enterocolitis Fever, tachycardia, normal lactic acid Start Zosyn IV fluids NPO for now GI consult Hyponatremia. Mild Secondary to insensible losses IV fluids Monitor BMP GERD PPI DVT prophylaxis Lovenox Full code Patient will need to inpatient midnight stays for treatment of sepsis secondary to colitis requiring IV antibiotics Time Spent With Patient Time: Total time managing care of this patient today ____ minutes. Quality Stroke Does the patient have a stroke diagnosis?: No VTE Prior VTE?: No VTE Risk Level:: Medical - moderate - high VTE Device Contraindication: Treatment Not Indicated VTE Drug Contraindication: N/A - Med Ordered
[2022-05-05 15:16] LABS: Campylobacter Detected (Not Detect.)
[2022-05-05 15:18] LABS: Adenovirus F 40/41 Not Detected (Not Detect.); Astrovirus Not Detected (Not Detect.); Cryptosporidium Not Detected (Not Detect.); Cyclospora cayetanensis Not Detected (Not Detect.); E. coli EAEC Not Detected (Not Detect.); E. coli EPEC Not Detected (Not Detect.); E. coli ETEC Not Detected (Not Detect.); E. coli STEC Not Detected (Not Detect.); Entamoeba histolytica Not Detected (Not Detect.); Giardia lamblia Not Detected (Not Detect.); Norovirus GI/GII Detected (Not Detect.); Plesiomonas shigelloides Not Detected (Not Detect.); Rotavirus A Not Detected (Not Detect.); Salmonella Not Detected (Not Detect.); Sapovirus Not Detected (Not Detect.); Shigella sp./EIEC Not Detected (Not Detect.); Vibrio Not Detected (Not Detect.); Vibrio Cholerae Not Detected (Not Detect.); Yersinia enterocolitica Not Detected (Not Detect.)
[2022-05-05] MEDS: 0.9 % Sodium Chloride 1,000 ML 100 ML IVCONT (15:55)
[2022-05-05] MEDS: Enoxaparin Sodium 40 MG/0.4 ML SYRINGE SUBCUT (16:20)
[2022-05-05] MEDS: Acetaminophen 325 MG TABLET 650 MG PO (16:59)
[2022-05-05] MEDS: Piperacillin Sodium/Tazobactam 3.375 GM in 0.9 % Sodium Chloride 50 ML IV (17:47)
--- NOTE | 2022-05-05 19:26 | PC.NURSE ---
Addendum entered by Laurie Hendrickson RN 05/06/22 06:50: report given to ESTRELLITA Longo Addendum entered by Laurie Hendrickson RN 05/06/22 01:28: Dr. Motta made aware of pt temp 100.5. no new order given. will continuo to monitor Addendum entered by Laurie Hendrickson RN 05/05/22 21:17: temp after received IV acetaminophen 100.7. Dr. Motta made aware, will recheck temp in a hour Original Note: report received from ESTRELLITA Rider pt is alert and oriented resting in bed breathing equally unalbored pt notice to be febrile 103.1. Dr. Motta aware
[2022-05-05] MEDS: Acetaminophen 1,000 MG/100 ML PIGGYBACK 400 MG IV (19:46)
[2022-05-06] MEDS: 0.9 % Sodium Chloride 1,000 ML 100 ML IVCONT ×2 (01:08→12:51)
[2022-05-06] MEDS: Piperacillin Sodium/Tazobactam 3.375 GM in 0.9 % Sodium Chloride 50 ML IV (01:09)
[2022-05-06 01:24] VITALS: BP 140/84; PULSE 104; RESP 16; TEMP 38.1; O2SAT 98
[2022-05-06 02:30] VITALS: TEMP 36.1
[2022-05-06 04:56] LABS: Hematocrit 36.4 % (42.0-52.0); Hemoglobin 12.9 g/dl (14.0-18.0); Mean Corpuscular HGB Conc 35.4 g/dl (31.0-36.0); Mean Corpuscular Hemoglobin 32.3 pg (27.0-33.0); Platelet Count 177 X10*3/uL (160-400); Red Cell Distribution Width 11.8 % (11.0-16.0); White Blood Count 6.8 X10*3/uL (4.8-10.8)
[2022-05-06 05:14] LABS: Magnesium 1.5 mg/dL (1.6-2.6)
[2022-05-06 05:16] LABS: Anion Gap 11 (12-20); Blood Urea Nitrogen 8 mg/dL (9-16); Calcium 8.3 mg/dL (8.4-10.2); Carbon Dioxide 22 mmol/L (22-29); Chloride 104 mmol/L (96-108); Creatinine Clr Calc Pharmacy 88.5; Estimated Glomerular Filt Rate > 60; Glucose Random 117 mg/dL (60-115); Potassium 3.1 mmol/L (3.3-5.1); Sodium 134 mmol/L (135-145)
[2022-05-06] MEDS: Morphine Sulfate 2 MG/ML CARTRIDGE IVPUSH ×3 (08:41→23:02)
--- NOTE | 2022-05-06 08:45 | PM.GICN ---
History of Present Illness Data of Consult Service Date: 05/06/22 Requesting physician: Naya Carroll Primary Care Provider: Gorge Reynolds MD HPI Reason for consult: Enterocolitis 56 year old Beninese-speaking male seen at [facility] [place] ED on 05/05/22 with diffuse abdominal pain, nausea, vomiting and watery stool (dark in color).? Pt denied recent travel, sick contacts, improperly cooked foods, chest pain, shortness of breath.? He reported that the pain started pretty suddenly yesterday and denies ever having pain like this before.? Hx obtained with the help of his GF who was at the bedside. Pt is followed in the GI clinic by Carito Smith NP for IBS and GERD.? He was noted to have fever (T max of 103 in the ED), tachycardia, tachypnea.? Pt continues to have abd pain which becomes worse even after drinking liquids. He reports having 8 to 10 watery BMs a day - last BM was a little less watery with some stool. In the ER, he was given Zosyn, Toradol, Zofran, IV fluids, morphine, Raglan and was admitted for further management and treatment of sepsis secondary to enterocolitis. Labs showed normal LFTs and lipase GI panel was positive for Campylobacter and Norovirus. 05/05/[address] SCAN SHOWED: GASTROINTESTINAL TRACT: There is wall thickening and edema of the distal ileum, cecum and right colon suggestive of enterocolitis. No evidence of obstruction, perforation or abscess. The appendix is normal. The stomach is normal. 12/2016 Pt had a colonoscopy by Dr. Ervin which showed minor diverticulosis. Repeat colonoscopy was advised in 10 years. Review of Systems Review of Systems: Denies any recent fever chills or decrease in appetite respiratory denies any shortness of breath coverage production cardiovascular denied chest pain gastrointestinal see HPI genitourinary denies any dysuria frequency or hematuria musculoskeletal denies any joint pain or swelling neuropsych denies any weakness or seizures all other systems reviewed are negative [facility] Past Medical History Medical History Allergic rhinitis IBS (irritable bowel syndrome) Impaired fasting glucose Microscopic hematuria Onychia and paronychia of finger Overweight (BMI 25.0-29.9) Pure hypercholesterolemia Superficial gastritis without hemorrhage Vitamin D deficiency Family History Family History Father Medical history unknown Mother Hypertension Maternal Aunt Cancer Maternal Uncle Cancer Surgical History Surgical History History of colonoscopy History of esophagogastroduodenoscopy (EGD) Social History Social History Household Members: Family Housing: Apartment Do you presently have visiting nurse or other home services: No Alcohol intake: current Alcohol intake frequency: a few times a week Alcohol type: beer Patient Tobacco Use Status: Never used Tobacco Second Hand Smoke Exposure: Yes service: No Current occupational status: unemployed Cognitive needs: No Hearing needs: No Vision needs: No Meds Allergies Allergy/AdvReac Type Severity Reaction Status Date / Time No Known Allergies Allergy Verified 03/22/22 11:19 [No Known Allergies*] Active Medications: Current Medications Acetaminophen (Acetaminophen 325 Mg Tablet) 650 mg PO Q6H PRN PRN Reason: Pain, Mild (Pain Scale 1-3) Last Admin: 05/05/22 16:59 Dose: 650 mg Enoxaparin Sodium (Enoxaparin Sodium 40 Mg/0.4 Ml Syringe) 40 mg SUBCUT Q24H HORACE Last Admin: 05/05/22 16:20 Dose: 40 mg Sodium Chloride (Ns) 1,000 mls @ 100 mls/hr IVCONT .Q10H HORACE Last Admin: 05/06/22 01:08 Dose: 100 mls/hr Magnesium Sulfate (Magnesium Sulfate/H2o) 2 gm in 50 mls @ 25 mls/hr IV ONCE ONE Stop: 05/06/22 10:37 Azithromycin 500 mg/ Sodium (Chloride) 250 mls @ 125 mls/hr IV Q24H HORACE Morphine Sulfate (Morphine Sulfate 2 Mg/Ml Cartridge) 2 mg IVPUSH Q4H PRN; Protocol PRN Reason: Pain, Mild (Pain Scale 1-3) Last Admin: 05/05/22 21:15 Dose: 2 mg Ondansetron HCl (Ondansetron Hcl 4 Mg/2 Ml Vial) 4 mg IVPUSH Q8H PRN PRN Reason: Nausea and Vomiting Potassium Chloride (Potassium Chloride Er 20 Meq Tab.Er.Prt) 40 meq PO ONCE ONE Stop: 05/06/22 08:38 Sodium Chloride (0.9 % Sodium Chloride Flush 3 Ml Syringe) 3 ml IVFLUSH QSHIFT [facility] Last Admin: 05/05/22 23:09 Dose: Not Given Home Medications Medication Instructions Recorded Confirmed Last Taken Type omeprazole 20 mg capsule,delayed 20 mg PO DAILY@0630 05/05/22 05/05/22 Unknown History release Physical Exam Vital Signs: Vital Signs: Last Vital Signs Temp 97 F 05/06/22 02:30 Pulse 104 H 05/06/22 01:24 Resp 16 05/06/22 01:24 BP 140/84 H 05/06/22 01:24 Pulse Ox 98 05/06/22 01:24 O2 Del Method 05/06/22 01:24 BMI result Body Mass Index 26.6 Const: General: anxious and ill appearing Nutritional Appearance: overweight Orientation/consciousness: patient oriented x3 Limitations: no limitations HEENT: Head: Yes normal to inspection Ears: hearing grossly normal bilaterally Eyes: Sclerae: sclerae normal Pupils: Equal, round and reactive pupils present Neck: Neck: Yes normal visual inspection Chest: Chest palpation & inspection: normal inspection of the chest Resp: Effort & Inspection: normal respiratory effort Auscultation: clear to auscultation bilaterally Cardio: Palpation: normal PMI Rate: regular rate Rhythm: regular rhythm Heart sounds: S1 normal heart sound present, S2 normal heart sound present and no murmurs GI: Palpation (GI): Soft to palpation, Tenderness to palpation present (GI) (RLQ tenderness on deep palpation without rebound) and No hepatosplenomegaly present Auscultation: normal bowel sounds Rectal Exam - Male: Yes deferred Skin: General skin exam: no rashes or lesions noted Neuro: General: patient oriented x3, gait normal and moves all extremities Cranial nerves: Yes Equal, round and reactive pupils present Psych: Appearance: grossly normal Mental Status: mental status grossly normal Results Labs CBC & Chem 7: 05/06/22 04:50 05/06/22 04:50 Labs: Short CBC 05/05/22 05/06/22 Range/Units 10:29 04:50 WBC 9.6 6.8 (4.8-10.8) X10*3/uL Hgb 14.0 12.9 L (14.0-18.0) g/dl Hct 39.3 L 36.4 L (42.0-52.0) % Plt Count 197 D 177 (160-400) X10*3/uL BMP 05/05/22 05/06/22 10:29 04:50 Sodium 133 L 134 L Potassium 3.4 D 3.1 L Chloride 99 104 Carbon Dioxide 22 22 BUN 10 8 L Creatinine 0.78 0.81 Calcium 9.2 8.3 L D Liver Function 05/05/22 Range/Units 10:29 Total Bilirubin 0.8 (0.0-1.0) mg/dL Direct Bilirubin 0.3 (0.0-0.5) mg/dL AST 15 (5-37) U/L ALT 20 (0-40) U/L Alkaline Phosphatase 66 D (39-117) U/L Albumin 4.7 (3.5-5.0) g/dL Urine 05/05/22 Range/Units 10:29 Urine Color Yellow Urine Appearance Clear Urine pH 6.5 (5.0-9.0) Ur Specific [place] >= 1.030 H (1.005-1.025) Urine Protein 100 (2+) H (Neg-Trace) mg/dL Urine Glucose (UA) 100 H (Negative) mg/dL Assessment and Plan (1) Enterocolitis: Status: Acute (2) GERD (gastroesophageal reflux disease): Status: Acute Plan 56 year old Beninese-speaking admitted on 05/05/22 with diffuse abdominal pain, nausea, vomiting and watery stool (dark in color).? Pt is followed in the GI clinic by Carito Smith NP for IBS and GERD.? He was noted to have fever (T max of 103 in the ED), tachycardia, tachypnea.? Pt continues to have abd pain which becomes worse even after drinking liquids. He reports having 8 to 10 watery BMs a day - last BM was a little less watery with some stool. Labs showed normal LFTs and lipase GI panel was positive for Campylobacter and Norovirus. 05/05/[address] SCAN SHOWED wall thickening and edema of the distal ileum, cecum and right colon suggestive of enterocolitis. RECOMMENDATIONS: 1. Agree with continuing IV anti-emetics, pain medications and antibiotics till abdominal pain and diarrhea improves 2. Switch to Lactated Ringers at 150 to 200 ml/hr to compensate for ongoing losses from diarrhea and monitor and replace electrolytes as needed.. 3. Continue clear liquid diet for now as tolerated. Time Spent With Patient Time: Total time managing care of this patient today ____ minutes. Procedures Date of Service Date of Service: 05/06/22
--- NOTE | 2022-05-06 09:42 | MHC.IC ---
Patient positive for Norovirus, placed on strict contact precautions with gowns, gloves and hand washing, patient equipment is to be cleaned with bleach. Pt should have their own bathroom or a dedicated commode.
[2022-05-06] MEDS: Azithromycin 500 MG in 0.9 % Sodium Chloride 250 ML 125 MG IV (10:27)
[2022-05-06] MEDS: Potassium Chloride ER 20 MEQ TAB.ER.PRT 40 MEQ PO (10:28)
[2022-05-06] MEDS: Magnesium Sulfate/H2O 2 GM/50 ML PIGGYBACK IV (10:45)
[2022-05-06] MEDS: Acetaminophen 325 MG TABLET 650 MG PO ×2 (10:52→17:37)
--- NOTE | 2022-05-06 11:00 | P.PNIM_ITS ---
Subjective Subjective Date of Service: 05/06/22 Review of Systems Follow-up abdominal pain, diarrhea, Campylobacter Still with mild abdominal pain and diarrhea Physical Exam Vital Signs: Vital Signs: Last Vital Signs Temp 97 F 05/06/22 02:30 Pulse 104 H 05/06/22 01:24 Resp 16 05/06/22 01:24 BP 140/84 H 05/06/22 01:24 Pulse Ox 98 05/06/22 01:24 O2 Del Method 05/06/22 01:24 BMI result Body Mass Index 26.6 Appearing in no acute distress lung sounds are clear to auscultation heart regular rate rhythm, clear S1, S2 positive bowel sounds, abdomen is soft, nontender neuro patient is alert x3, no focal deficits Objective Data Active Medications Acetaminophen (Acetaminophen 325 Mg Tablet) 650 mg PO Q6H PRN PRN Reason: Pain, Mild (Pain Scale 1-3) Last Admin: 05/06/22 10:52 Dose: 650 mg Documented By: TERRA Enoxaparin Sodium (Enoxaparin Sodium 40 Mg/0.4 Ml Syringe) 40 mg SUBCUT Q24H [facility] Last Admin: 05/05/22 16:20 Dose: 40 mg Documented By: JESUSITA Sodium Chloride (Ns) 1,000 mls @ 100 mls/hr IVCONT .Q10H [facility] Last Admin: 05/06/22 01:08 Dose: 100 mls/hr Documented By: BAKARI-ANICL Azithromycin 500 mg/ Sodium (Chloride) 250 mls @ 125 mls/hr IV Q24H [facility] Last Admin: 05/06/22 10:27 Dose: 125 mls/hr Documented By: TERRA Morphine Sulfate (Morphine Sulfate 2 Mg/Ml Cartridge) 2 mg IVPUSH Q4H PRN; Protocol PRN Reason: Pain, Mild (Pain Scale 1-3) Last Admin: 05/06/22 08:41 Dose: 2 mg Documented By: TAYLER Ondansetron HCl (Ondansetron Hcl 4 Mg/2 Ml Vial) 4 mg IVPUSH Q8H PRN PRN Reason: Nausea and Vomiting Sodium Chloride (0.9 % Sodium Chloride Flush 3 Ml Syringe) 3 ml IVFLUSH QSHIFT [facility] Last Admin: 05/06/22 08:46 Dose: Not Given Documented By: TAYLER Non-Admin Reason: IV Running Labs CBC & Chem 7: 05/06/22 04:50 05/06/22 04:50 Labs: Laboratory Results - last 24 hr 05/05/22 05/05/22 05/05/22 10:29 10:29 12:55 MCV MCH MCHC RDW Plt Count MPV Absolute Nucleated RBC Nucleated RBC % (auto) Anion Gap Estim Creat Clear Calc Estimated GFR Random Glucose Calcium Magnesium Total Bilirubin 0.8 Stool Leukocytes, Qual MANY: >10/OIF Stl C. cayetanensis PCR Stool Rotavirus A PCR Stl Adenov F 40/41 PCR Stool Astrovirus (PCR) Stool Campylobacter PCR Stool Cryptosporidium PCR Stl Sh Tox Pr E STEC PCR Stool E coli O157 PCR Stl Enterotoxigenic E PCR Stool EPEC (PCR) Stool EAEC (PCR) Stl E. histolytica PCR Stool Giardia Lamblia PCR Stl P. shigelloides PCR Stool Salmonella PCR Stool Sapovirus (PCR) Stl Shigella/EIEC PCR St Y.enterocolitica PCR Stool Vibrio (PCR) Stl Vibrio cholerae PCR Stl Norovirus GI/GII PCR C. difficile Tox B Gene Influenza Type A (PCR) NEGATIVE Influenza Type B (PCR) NEGATIVE RSV RNA Qual (PCR) NEGATIVE SARS-CoV-2 RNA (RT-PCR) NEGATIVE 05/05/22 05/05/22 05/06/22 12:55 12:55 04:50 MCV 91.0 MCH 32.3 MCHC 35.4 RDW 11.8 Plt Count 177 MPV 9.0 L Absolute Nucleated RBC 0.000 Nucleated RBC % (auto) 0.0 Anion Gap Estim Creat Clear Calc Estimated GFR Random Glucose Calcium Magnesium Total Bilirubin Stool Leukocytes, Qual Stl C. cayetanensis PCR Not Detected Stool Rotavirus A PCR Not Detected Stl Adenov F 40/41 PCR Not Detected Stool Astrovirus (PCR) Not Detected Stool Campylobacter PCR Detected A Stool Cryptosporidium PCR Not Detected Stl Sh Tox Pr E STEC PCR Not Detected Stool E coli O157 PCR Not applicable Stl Enterotoxigenic E PCR Not Detected Stool EPEC (PCR) Not Detected Stool EAEC (PCR) Not Detected Stl E. histolytica PCR Not Detected Stool Giardia Lamblia PCR Not Detected Stl P. shigelloides PCR Not Detected Stool Salmonella PCR Not Detected Stool Sapovirus (PCR) Not Detected Stl Shigella/EIEC PCR Not Detected St Y.enterocolitica PCR Not Detected Stool Vibrio (PCR) Not Detected Stl Vibrio cholerae PCR Not Detected Stl Norovirus GI/GII PCR Detected A C. difficile Tox B Gene NEGATIVE Influenza Type A (PCR) Influenza Type B (PCR) RSV RNA Qual (PCR) SARS-CoV-2 RNA (RT-PCR) 05/06/22 05/06/22 04:50 04:50 MCV MCH MCHC RDW Plt Count MPV Absolute Nucleated RBC Nucleated RBC % (auto) Anion Gap 11 L Estim Creat Clear Calc 88.5 Estimated GFR > 60 Random Glucose 117 H Calcium 8.3 L D Magnesium 1.5 L Total Bilirubin Stool Leukocytes, Qual Stl C. cayetanensis PCR Stool Rotavirus A PCR Stl Adenov F 40/41 PCR Stool Astrovirus (PCR) Stool Campylobacter PCR Stool Cryptosporidium PCR Stl Sh Tox Pr E STEC PCR Stool E coli O157 PCR Stl Enterotoxigenic E PCR Stool EPEC (PCR) Stool EAEC (PCR) Stl E. histolytica PCR Stool Giardia Lamblia PCR Stl P. shigelloides PCR Stool Salmonella PCR Stool Sapovirus (PCR) Stl Shigella/EIEC PCR St Y.enterocolitica PCR Stool Vibrio (PCR) Stl Vibrio cholerae PCR Stl Norovirus GI/GII PCR C. difficile Tox B Gene Influenza Type A (PCR) Influenza Type B (PCR) RSV RNA Qual (PCR) SARS-CoV-2 RNA (RT-PCR) Assessment and Plan (1) Enterocolitis: Status: Acute Plan 56-year-old man admitted with sepsis secondary to and after colitis with nausea vomiting and diarrhea Sepsis secondary to Enterocolitis Fever, tachycardia, normal lactic acid Start Zosyn IV fluids Advanced to clear liquid diet Hyponatremia.? Mild Secondary to insensible losses IV fluids Monitor BMP Hypokalemia/hypomagnesemia Secondary to insensible losses, diarrhea Replete Monitor BMP GERD PPI DVT prophylaxis Lovenox Full code Attending Dr. Rose Continue hospitalization for treatment of sepsis secondary to colitis requiring IV antibiotics Time Spent With Patient Time: Total time managing care of this patient today ____ minutes. Quality Stroke Does the patient have a stroke diagnosis?: No VTE Prior VTE?: No VTE Risk Level:: Medical - moderate - high VTE Device Contraindication: Treatment Not Indicated VTE Drug Contraindication: N/A - Med Ordered
[2022-05-06 14:46] VITALS: BP 144/82; PULSE 68; RESP 18; TEMP 36.6; O2SAT 98
[2022-05-06 15:19] VITALS: RESP 18
[2022-05-06] MEDS: Enoxaparin Sodium 40 MG/0.4 ML SYRINGE SUBCUT (15:20)
[2022-05-06 15:48] VITALS: BP 132/77; PULSE 79; RESP 19; TEMP 36.7; O2SAT 98
[2022-05-06] MEDS: ondansetron HCL 4 MG/2 ML VIAL IVPUSH (17:37)
[2022-05-06] MEDS: oxyCODONE HCl Immed Release 5 MG TABLET PO (18:04)
[2022-05-06] MEDS: Dextrose 5 % and Lactated Ring 1,000 ML 150 ML IVCONT (18:27)
[2022-05-06 19:54] VITALS: BP 132/84; PULSE 92; RESP 19; TEMP 36.7; O2SAT 99
[2022-05-06] MEDS: 0.9 % Sodium Chloride Flush 3 ML SYRINGE IVFLUSH (23:00)
[2022-05-07] MEDS: Dextrose 5 % and Lactated Ring 1,000 ML 150 ML IVCONT ×4 (00:45→23:28)
[2022-05-07] MEDS: oxyCODONE HCl Immed Release 5 MG TABLET PO ×2 (02:50→11:42)
[2022-05-07] MEDS: Acetaminophen 325 MG TABLET 650 MG PO ×2 (02:51→11:43)
[2022-05-07 04:00] VITALS: BP 130/78; PULSE 62; RESP 18; TEMP 36.7; O2SAT 98
[2022-05-07 06:41] LABS: Anion Gap 11 (12-20); Blood Urea Nitrogen 5 mg/dL (9-16); Calcium 8.3 mg/dL (8.4-10.2); Carbon Dioxide 24 mmol/L (22-29); Chloride 104 mmol/L (96-108); Creatinine Clr Calc Pharmacy 112.1; Estimated Glomerular Filt Rate > 60; Glucose Random 146 mg/dL (60-115); Potassium 3.4 mmol/L (3.3-5.1); Sodium 136 mmol/L (135-145)
[2022-05-07 07:04] VITALS: BP 130/72; PULSE 62; RESP 19; TEMP 36.7; O2SAT 98
[2022-05-07 08:20] LABS: HIV AB/AG Nonreactive (Nonreactive); HIV Num 1 0.07 S/CO (0.00-0.99)
[2022-05-07] MEDS: Azithromycin 500 MG in 0.9 % Sodium Chloride 250 ML 125 MG IV (09:02)
--- NOTE | 2022-05-07 09:33 | P.PNIM_ITS ---
Subjective Subjective Date of Service: 05/07/22 Review of Systems Follow-up abdominal pain, diarrhea, Campylobacter Still with mild abdominal pain and diarrhea Physical Exam Vital Signs: Vital Signs: Last Vital Signs Temp 98.1 F 05/07/22 07:04 Pulse 62 05/07/22 07:04 Resp 19 05/07/22 07:04 BP 130/72 05/07/22 07:04 Pulse Ox 98 05/07/22 07:04 O2 Del Method 05/07/22 07:04 BMI result Body Mass Index 26.6 Appearing in no acute distress lung sounds are clear to auscultation heart regular rate rhythm, clear S1, S2 positive bowel sounds, abdomen is soft, nontender neuro patient is alert x3, no focal deficits Objective Data Active Medications Acetaminophen (Acetaminophen 325 Mg Tablet) 650 mg PO Q6H PRN PRN Reason: Pain, Mild (Pain Scale 1-3) Last Admin: 05/07/22 02:51 Dose: 650 mg Documented By: BRENT Enoxaparin Sodium (Enoxaparin Sodium 40 Mg/0.4 Ml Syringe) 40 mg SUBCUT Q24H [facility] Last Admin: 05/06/22 15:20 Dose: 40 mg Documented By: COTEMA Azithromycin 500 mg/ Sodium (Chloride) 250 mls @ 125 mls/hr IV Q24H [facility] Last Admin: 05/07/22 09:02 Dose: 125 mls/hr Documented By: COTEMA Dextrose/Lactated Ringer's (D5lr) 1,000 mls @ 150 mls/hr IVCONT .Q6H40M [facility] Last Admin: 05/07/22 09:02 Dose: 150 mls/hr Documented By: COTEMA Morphine Sulfate (Morphine Sulfate 2 Mg/Ml Cartridge) 2 mg IVPUSH Q4H PRN; Protocol PRN Reason: Pain, Mild (Pain Scale 1-3) Last Admin: 05/06/22 23:02 Dose: 2 mg Documented By: BRENT Ondansetron HCl (Ondansetron Hcl 4 Mg/2 Ml Vial) 4 mg IVPUSH Q8H PRN PRN Reason: Nausea and Vomiting Last Admin: 05/06/22 17:37 Dose: 4 mg Documented By: COTEMA Oxycodone HCl (Oxycodone Hcl Immed Release 5 Mg Tablet) 5 mg PO Q4H PRN PRN Reason: Pain, Mild (Pain Scale 1-3) Last Admin: 05/07/22 02:50 Dose: 5 mg Documented By: BRENT Sodium Chloride (0.9 % Sodium Chloride Flush 3 Ml Syringe) 3 ml IVFLUSH [facility] Last Admin: 05/07/22 07:17 Dose: Not Given Documented By: COTEMA Non-Admin Reason: IV Running Labs CBC & Chem 7: 05/06/22 04:50 05/07/22 05:40 Labs: Laboratory Results - last 24 hr 05/07/22 05/07/22 05:40 05:40 Anion Gap 11 L Estim Creat Clear Calc 112.1 Estimated GFR > 60 Random Glucose 146 H Calcium 8.3 L Magnesium 2.0 HIV 1&2 Ab/P24 Ag 4thGn Nonreactive Microbiology Microbiology Results: Microbiology 05/05/22 10:37 Blood Culture - Preliminary Blood - Venous No growth after 24 hours. 05/05/22 10:29 Blood Culture - Preliminary Blood - Venous No growth after 24 hours. Assessment and Plan (1) Enterocolitis: Status: Acute Plan 56-year-old man admitted with sepsis secondary to and after colitis with nausea vomiting and diarrhea Sepsis secondary to Enterocolitis secondary to Campylobacter and norovirus Fever, tachycardia, normal lactic acid at least 6 watery stools a day Initially on Zosyn, changed to azithromycin x3 days IV fluids LR at 150 for GI losses Clear liquid diet as tolerated GI following Hyponatremia.? Resolved Secondary to insensible losses IV fluids Monitor BMP Hypokalemia/hypomagnesemia. Resolved Secondary to insensible losses, diarrhea Replete Monitor BMP GERD PPI DVT prophylaxis Lovenox Full code Attending Dr. Maier Continue hospitalization for treatment of sepsis secondary to colitis requiring IV antibiotics Time Spent With Patient Time: Total time managing care of this patient today ____ minutes. Quality Stroke Does the patient have a stroke diagnosis?: No VTE Prior VTE?: No VTE Risk Level:: Medical - moderate - high VTE Device Contraindication: Treatment Not Indicated VTE Drug Contraindication: N/A - Med Ordered
--- NOTE | 2022-05-07 14:29 | MHC.CM.PN ---
PATIENT LIVES WITH FAMILY. NO DME OR VNA SERVICES. FULLY INDEPENDENT NO HCP ON FILE CASE MANAGEMENT CAN ASSIST WITH COMPLETION IF PATIENT WISHES TO DO SO PRIOR TO DC. POSSIBLE HOME TOMORROW (05/08/22) ON PO ABX. COVID VACCINATED. (IN ROOM) WILL PROVIDE TRANSPORT HOME AT TIME OF DC.
[2022-05-07 14:57] VITALS: BP 141/80; PULSE 69; RESP 18; TEMP 36.8; O2SAT 97
[2022-05-07] MEDS: Enoxaparin Sodium 40 MG/0.4 ML SYRINGE SUBCUT (16:18)
[2022-05-07 19:13] VITALS: BP 133/79; PULSE 65; RESP 18; TEMP 37; O2SAT 97
[2022-05-08] MEDS: Morphine Sulfate 2 MG/ML CARTRIDGE IVPUSH ×2 (01:50→16:03)
[2022-05-08 04:00] VITALS: BP 134/81; PULSE 62; RESP 18; TEMP 36.8; O2SAT 99
[2022-05-08] MEDS: Dextrose 5 % and Lactated Ring 1,000 ML 150 ML IVCONT ×2 (06:24→17:32)
[2022-05-08] MEDS: oxyCODONE HCl Immed Release 5 MG TABLET PO (06:28)
[2022-05-08 07:23] LABS: Anion Gap 11 (12-20); Blood Urea Nitrogen 3 mg/dL (9-16); Calcium 8.9 mg/dL (8.4-10.2); Carbon Dioxide 28 mmol/L (22-29); Chloride 102 mmol/L (96-108); Creatinine Clr Calc Pharmacy 105.5; Estimated Glomerular Filt Rate > 60; Glucose Random 107 mg/dL (60-115); Magnesium 1.8 mg/dL (1.6-2.6); Potassium 3.3 mmol/L (3.3-5.1); Sodium 138 mmol/L (135-145)
[2022-05-08 08:00] VITALS: BP 135/84; PULSE 70; RESP 17; TEMP 37.2; O2SAT 98
[2022-05-08] MEDS: Azithromycin 500 MG in 0.9 % Sodium Chloride 250 ML 125 MG IV (09:58)
--- NOTE | 2022-05-08 13:27 | MHC.CM.PN ---
PATIENT WILL NOT DC HOME TODAY ORIGINALLY PLANNED. CM FOLLOWING
--- NOTE | 2022-05-08 13:36 | HO.PM.IMPN ---
Subjective Subjective Date of Service: 05/08/22 Interval History: Slowly improving. Stools remain loose Review of Systems Denies chest pain Denies shortness of breath Denies nausea vomiting admits diarrhea Denies fever chills Physical Exam Vital Signs: Vital Signs: Last Vital Signs Temp 99.0 F 05/08/22 08:00 Pulse 70 05/08/22 08:00 Resp 17 05/08/22 08:00 BP 135/84 05/08/22 08:00 Pulse Ox 98 05/08/22 08:00 O2 Del Method 05/08/22 08:00 BMI result Body Mass Index 26.6 Const: Other: Awake alert no acute distress Resp: Other: Clear to auscultation bilaterally. No rales rhonchi wheezes Cardio: Other: No S4 positive S1-S2; no S3 murmurs rubs gallops GI: Other: Soft nontender nondistended normoactive bowel sounds Extrem: Other: No edema bilaterally Objective Data Active Medications Acetaminophen (Acetaminophen 325 Mg Tablet) 650 mg PO Q6H PRN PRN Reason: Pain, Mild (Pain Scale 1-3) Last Admin: 05/07/22 11:43 Dose: 650 mg Documented By: COTEMA Enoxaparin Sodium (Enoxaparin Sodium 40 Mg/0.4 Ml Syringe) 40 mg SUBCUT Q24H [facility] Last Admin: 05/07/22 16:18 Dose: 40 mg Documented By: ANA MARIA Azithromycin 500 mg/ Sodium (Chloride) 250 mls @ 125 mls/hr IV Q24H [facility] Last Infusion: 05/08/22 12:22 Dose: 0 mls/hr Documented By: ESTRELLA Dextrose/Lactated Ringer's (D5lr) 1,000 mls @ 150 mls/hr IVCONT .Q6H40M [facility] Last Admin: 05/08/22 06:24 Dose: 150 mls/hr Documented By: THIAGO Morphine Sulfate (Morphine Sulfate 2 Mg/Ml Cartridge) 2 mg IVPUSH Q4H PRN; Protocol PRN Reason: Pain, Mild (Pain Scale 1-3) Last Admin: 05/08/22 01:50 Dose: 2 mg Documented By: THIAGO Ondansetron HCl (Ondansetron Hcl 4 Mg/2 Ml Vial) 4 mg IVPUSH Q8H PRN PRN Reason: Nausea and Vomiting Last Admin: 05/06/22 17:37 Dose: 4 mg Documented By: COTEMA Oxycodone HCl (Oxycodone Hcl Immed Release 5 Mg Tablet) 5 mg PO Q4H PRN PRN Reason: Pain, Mild (Pain Scale 1-3) Last Admin: 05/08/22 06:28 Dose: 5 mg Documented By: THIAGO Sodium Chloride (0.9 % Sodium Chloride Flush 3 Ml Syringe) 3 ml IVFLUSH QSHIFT [facility] Last Admin: 05/08/22 09:59 Dose: Not Given Documented By: ESTRELLA Non-Admin Reason: IV Running Labs CBC & Chem 7: 05/06/22 04:50 05/08/22 06:22 Labs: Laboratory Results - last 24 hr 05/08/22 06:22 Anion Gap 11 L Estim Creat Clear Calc 105.5 Estimated GFR > 60 Random Glucose 107 Calcium 8.9 D Magnesium 1.8 Microbiology Microbiology Results: Microbiology 05/05/22 10:37 Blood Culture - Preliminary Blood - Venous No growth after 48 hours. 05/05/22 10:29 Blood Culture - Preliminary Blood - Venous No growth after 48 hours. Assessment and Plan (1) Enterocolitis: Status: Acute Plan 56-year-old man admitted with sepsis secondary to Campylobacter colitis; remains tolerant of therapies 1. Campylobacter enterocolitis -slowly improving with azithromycin -IV fluids LR at 150 for GI losses -Clear liquid diet advanced as tolerated 2.Hyponatremia/hypomagnesemia/hypokalemia.....? Resolved -follow renals/divalents PPI DVT prophylaxis Lovenox Full code Continue hospitalization for treatment of Campylobacter enteritis requiring IV antibiotics Time Spent With Patient Time: Total time managing care of this patient today ____ minutes. Quality Stroke Does the patient have a stroke diagnosis?: No VTE Prior VTE?: No VTE Risk Level:: Medical - moderate - high VTE Device Contraindication: Treatment Not Indicated VTE Drug Contraindication: N/A - Med Ordered
[2022-05-08] MEDS: Enoxaparin Sodium 40 MG/0.4 ML SYRINGE SUBCUT (14:23)
[2022-05-08 15:44] VITALS: BP 128/80; PULSE 69; RESP 15; TEMP 37.1; O2SAT 100
[2022-05-08 19:44] VITALS: BP 151/88; PULSE 75; RESP 16; TEMP 36.5; O2SAT 100
[2022-05-09] MEDS: Dextrose 5 % and Lactated Ring 1,000 ML 150 ML IVCONT ×3 (00:43→14:39)
[2022-05-09] MEDS: 0.9 % Sodium Chloride Flush 3 ML SYRINGE IVFLUSH ×2 (00:44→21:11)
[2022-05-09 02:53] VITALS: BP 157/87; PULSE 70; RESP 18; TEMP 37.2; O2SAT 100
[2022-05-09] MEDS: Acetaminophen 325 MG TABLET 650 MG PO ×2 (06:20→17:53)
[2022-05-09 07:21] LABS: Anion Gap 12 (12-20); Blood Urea Nitrogen 3 mg/dL (9-16); Calcium 8.8 mg/dL (8.4-10.2); Carbon Dioxide 25 mmol/L (22-29); Chloride 105 mmol/L (96-108); Creatinine Clr Calc Pharmacy 108.7; Estimated Glomerular Filt Rate > 60; Glucose Random 116 mg/dL (60-115); Magnesium 1.8 mg/dL (1.6-2.6); Potassium 3.4 mmol/L (3.3-5.1); Sodium 139 mmol/L (135-145)
[2022-05-09 07:54] VITALS: BP 143/67; PULSE 65; RESP 18; TEMP 36.7; O2SAT 99
[2022-05-09] MEDS: Azithromycin 500 MG in 0.9 % Sodium Chloride 250 ML 125 MG IV (09:01)
[2022-05-09] MEDS: oxyCODONE HCl Immed Release 5 MG TABLET PO (10:35)
--- NOTE | 2022-05-09 11:23 | HO.PM.IMPN ---
Subjective Subjective Date of Service: 05/09/22 Interval History: Admitted with Campylobacter/norovirus diarrhea. Remains tolerant of azithromycin. .. Stools firming up Review of Systems Denies chest pain Denies nausea vomiting diarrhea improved Denies shortness of breath Denies fever chills Physical Exam Vital Signs: Vital Signs: Last Vital Signs Temp 98.1 F 05/09/22 07:54 Pulse 65 05/09/22 07:54 Resp 18 05/09/22 07:54 BP 143/67 H 05/09/22 07:54 Pulse Ox 99 05/09/22 07:54 O2 Del Method 05/09/22 07:54 BMI result Body Mass Index 26.6 Const: Other: Awake alert no acute distress Resp: Other: Clear to auscultation bilaterally. No rales rhonchi wheezes Cardio: Other: No S4 positive S1-S2; no S3 murmurs rubs gallops GI: Other: Soft nontender nondistended normoactive bowel sounds Extrem: Other: No edema bilaterally Objective Data Active Medications Acetaminophen (Acetaminophen 325 Mg Tablet) 650 mg PO Q6H PRN PRN Reason: Pain, Mild (Pain Scale 1-3) Last Admin: 05/09/22 06:20 Dose: 650 mg Documented By: HAILEY Enoxaparin Sodium (Enoxaparin Sodium 40 Mg/0.4 Ml Syringe) 40 mg SUBCUT Q24H [facility] Last Admin: 05/08/22 14:23 Dose: 40 mg Documented By: ESTRELLA Azithromycin 500 mg/ Sodium (Chloride) 250 mls @ 125 mls/hr IV Q24H [facility] Last Infusion: 05/09/22 11:21 Dose: 0 mls/hr Documented By: RAUL Dextrose/Lactated Ringer's (D5lr) 1,000 mls @ 150 mls/hr IVCONT .Q6H40M [facility] Last Admin: 05/09/22 06:21 Dose: 150 mls/hr Documented By: HAILEY Morphine Sulfate (Morphine Sulfate 2 Mg/Ml Cartridge) 2 mg IVPUSH Q4H PRN; Protocol PRN Reason: Pain, Mild (Pain Scale 1-3) Last Admin: 05/08/22 16:03 Dose: 2 mg Documented By: WOLFGANG Ondansetron HCl (Ondansetron Hcl 4 Mg/2 Ml Vial) 4 mg IVPUSH Q8H PRN PRN Reason: Nausea and Vomiting Last Admin: 05/06/22 17:37 Dose: 4 mg Documented By: COTEMA Oxycodone HCl (Oxycodone Hcl Immed Release 5 Mg Tablet) 5 mg PO Q4H PRN PRN Reason: Pain, Mild (Pain Scale 1-3) Last Admin: 05/09/22 10:35 Dose: 5 mg Documented By: RAUL Sodium Chloride (0.9 % Sodium Chloride Flush 3 Ml Syringe) [facility] Last Admin: 05/09/22 08:11 Dose: Not Given Documented By: RAUL Non-Admin Reason: IV Running Labs CBC & Chem 7: 05/06/22 04:50 05/09/22 06:00 Labs: Laboratory Results - last 24 hr 05/09/22 06:00 Anion Gap 12 Estim Creat Clear Calc 108.7 Estimated GFR > 60 Random Glucose 116 H Calcium 8.8 Magnesium 1.8 Assessment and Plan (1) Enterocolitis: Status: Acute Plan 56-year-old man admitted with sepsis secondary to Campylobacter colitis; remains tolerant of therapies 1. Campylobacter enterocolitis -slowly improving with azithromycin -IV fluids LR at 150 for GI losses -. Advance diet to regular 2.Hyponatremia/hypomagnesemia/hypokalemia.....? Resolved -follow renals/divalents PPI DVT prophylaxis Lovenox Full code Continue hospitalization for treatment of Campylobacter enteritis requiring IV antibiotics Time Spent With Patient Time: Total time managing care of this patient today ____ minutes. Quality Stroke Does the patient have a stroke diagnosis?: No VTE Prior VTE?: No VTE Risk Level:: Medical - moderate - high VTE Device Contraindication: Treatment Not Indicated VTE Drug Contraindication: N/A - Med Ordered
--- NOTE | 2022-05-09 11:51 | MHC.CM.PN ---
PLAN IS HOME TOMORROW 05/10/22 (ADVANCE DIET TODAY)
[2022-05-09] MEDS: Enoxaparin Sodium 40 MG/0.4 ML SYRINGE SUBCUT (14:40)
[2022-05-09 15:43] VITALS: BP 146/77; PULSE 63; RESP 18; TEMP 36.6; O2SAT 100
[2022-05-09 19:25] VITALS: BP 131/79; PULSE 63; RESP 17; TEMP 36.9; O2SAT 98
[2022-05-10 03:24] VITALS: BP 157/98; PULSE 68; RESP 16; TEMP 37.6; O2SAT 98
[2022-05-10 07:57] VITALS: BP 145/85; PULSE 65; RESP 19; TEMP 36.8; O2SAT 98
[2022-05-10] MEDS: 0.9 % Sodium Chloride Flush 3 ML SYRINGE IVFLUSH (08:58)
--- NOTE | 2022-05-10 09:49 | PM.DS ---
DS: Providers Provider Date of Service: 05/10/22 Date of admission: 05/05/22 14:48 Date of discharge: 05/10/22 Primary care physician: Gorge Reynolds MD Consults: 05/05/22 14:48 Consult to Gastroenterology Routine Consulting Provider: Erik Elaine Reason for consultation: enterocolitis DS: Diagnosis Discharge Diagnosis (1) Enterocolitis: Status: Acute DS: Summary Hospital Course Hospital Course: 56-year-old man presenting complaints diffuse abdominal pain, nausea, vomiting and watery stool that is dark in color.? He denied fever, chills, recent travel, sick contacts, improperly cooked foods, chest pain, shortness of breath.? He reported that the pain started pretty suddenly yesterday and denies ever having pain like this before.? He has been diagnosed with IBS and GERD.? Abdominal CT showed wall thickening and edema of the distal ileum, cecum and right colon suggestive of enterocolitis.? He was noted to have fever, tachycardia, tachypnea.? In the ER, he was given Zosyn, Toradol, Zofran, IV fluids, morphine, Raglan.? He will be admitted for further management and treatment of sepsis secondary to enterocolitis. Hospital Course Patient admitted and seen in consultation by GI who ordered a stool profile. Profile consistent with norovirus and Campylobacter. Antibiotics switched to azithromycin and diet remained clear liquids. Over the course of the next 2-3 days S stools began to form and patient tolerated regular diet. At this point time he is anxious for discharge and is medically acceptable for same. He will be discharged on a course of oral azithromycin and can follow-up with PCP Time Spent with Patient Time attestation: Total time managing care of this patient today _30___ minutes. Discharge coordination time: Greater than 30 minutes Quality: Safe Use of Opioids Does Pt have an Active Cancer Diagnosis on the Problem List?: No Quality: Stroke Does the patient have a stroke diagnosis?: No Physical Exam Vital Signs: Vital Signs: Last Vital Signs Temp 98.3 F 05/10/22 07:57 Pulse 65 05/10/22 07:57 Resp 19 05/10/22 07:57 BP 145/85 H 05/10/22 07:57 Pulse Ox 98 05/10/22 07:57 O2 Del Method 05/10/22 07:57 BMI result Body Mass Index 26.6 Const: Other: Awake alert no acute distress Resp: Other: Clear to auscultation bilaterally. No rales rhonchi wheezes Cardio: Other: No S4 positive S1-S2; no S3 murmurs rubs gallops GI: Other: Soft nontender nondistended normoactive bowel sounds Extrem: Other: No edema bilaterally DS: Data Data Completed and Pending Labs on day of discharge: Preliminary micro results at discharge 05/05/22 10:37 Blood Culture - Preliminary Blood - Venous No growth after 48 hours. 05/05/22 10:29 Blood Culture - Preliminary Blood - Venous No growth after 48 hours. Discharge Plan Discharge Anticipated Discharge Date/Time: 05/10/22 09:52 Patient Disposition: Home, Self-Care Discharge Diagnosis: Champhylobacter enteritis Referrals: Gorge Reynolds MD [Primary Care Provider] - 1 Week Discharge Medications: New azithromycin 500 mg tablet 500 mg PO DAILY 7 Days Qty: 7 0RF Continued omeprazole 20 mg Capsule,Delayed Release(Dr/Ec) 20 mg PO DAILY@0630 Discharge Orders: Discharge Order (Routine); Ordered 05/10/22 Ordered By: Alvin Sánchez Diet: Advance to usual diet Activity on Discharge: As tolerated Stand Alone Forms: Patient Portal Discharge page Care Plan Goals: Continue diet as previous to hospital. Good hand washing Health Concerns: Complete course of azithromycin by mouth Plan of Treatment: Follow-up with PCP 2 weeks Assessment: See discharge summary
--- NOTE | 2022-05-10 10:03 | MHC.CM.PN ---
PATIENT IS DC HOME - SELF CARE RN AWARE OF PLAN
== END 2022-05-10 10:37 | disposition home or self-care (01) | DRG 248 ==
LOC: HO.ED 14:21 → HO.EDOVER 14:52 → HO.S3 05-06 12:46
PROVIDERS: Physician Assistant; Admitting Provider Nurse Practitioner Acute Care; Emergency Provider Emergency Medicine Emergency Medical Services; PCP Internal Medicine; Visit Provider Hospitalist
DX: A04.5 Campylobacter enteritis (principal); E78.5 Hyperlipidemia, unspecified; A08.11 Acute gastroenteropathy due to Norwalk agent; K21.9 Gastro-esophageal reflux disease without esophagitis; E83.42 Hypomagnesemia; E87.6 Hypokalemia; Z20.822 Contact with and (suspected) exposure to COVID-19; Z79.899 Other long term (current) drug therapy
CPT/HCPCS: 0241U; 36415; 71045; 74177; 80048; 80076; 81001; 83605; 83690; 83735; 85025; 85027; 87040; 87389; 87493; 87502; 87507; 87635; 89055; 99285; J0131; J0456; J1650; J1885; J2270; J2405; J2543; J2765; J3475; Q9967

== ENCOUNTER 2022-05-15 13:27 | Outpatient (REF) | payer OTHER, SELFPAY ==
[2022-05-15 18:10] LABS: Urine Cytology See Pathology rpt
== END 2022-05-15 13:28 | disposition home or self-care (01) ==
LOC: HO.LAB 13:27
PROVIDERS: PCP Internal Medicine; Visit Provider Nurse Practitioner Family
DX: R31.29 Other microscopic hematuria (principal); R35.0 Frequency of micturition; R35.1 Nocturia
CPT/HCPCS: 51798; 88112; 99202

== ENCOUNTER 2022-06-26 08:47 | Outpatient (REF) | payer OTHER, SELFPAY ==
--- NOTE | ~2022-06-26 | US_ITS ---
EXAMINATION: US RETROPERITONEAL LIMITED (RENAL ONLY) CLINICAL INFORMATION: Nocturia. COMPARISON: CT of the abdomen and pelvis with contrast 05/05/2022. Ultrasound of the abdomen limited 08/21/2021. TECHNIQUE: Real-time imaging of the kidneys. FINDINGS: RIGHT KIDNEY: 11.4 x 5.9 x 4.8 cm (SAG x AP x TRV). The kidney is normal in size, contour, and echogenicity. Renal cortical thickness is normal. No calculi or focal parenchymal lesions. No hydronephrosis. LEFT KIDNEY: 11.1 x 5.7 x 4.9 cm (SAG x AP x TRV). The kidney is normal in size, contour, and echogenicity. Renal cortical thickness is normal. No calculi or focal parenchymal lesions. No hydronephrosis. US/US retroperitoneal limited IMPRESSION: Normal-appearing kidneys.
== END 2022-06-26 08:48 | disposition home or self-care (01) ==
LOC: HO.US 08:47
PROVIDERS: PCP Internal Medicine; Visit Provider Nurse Practitioner Family
DX: R35.1 Nocturia (principal); R35.0 Frequency of micturition; R39.15 Urgency of urination
CPT/HCPCS: 76775

== ENCOUNTER 2022-07-11 07:57 | Outpatient (REF) | payer OTHER, SELFPAY ==
[2022-07-11 08:10] LABS: MANUAL DIFF FLAG NO
[2022-07-11 08:56] LABS: Basophils Percent Auto 0.9 % (0-2); Eosinophils Absolute Auto 0.1 X10*3/uL (0.0-0.4); Eosinophils Percent Auto 1.5 % (0-4); Hematocrit 40.5 % (42.0-52.0); Hemoglobin 13.9 g/dl (14.0-18.0); Imm Gran Abs Auto 0.01 X10*3/uL (0.00-0.03); Imm Gran Pct Auto 0.2 % (0.0-0.4); Lymphocytes Absolute Auto 1.7 X10*3/uL (1.2-4.9); Lymphocytes Percent Auto 37.8 % (20-40); Mean Corpuscular HGB Conc 34.3 g/dl (31.0-36.0); Mean Corpuscular Hemoglobin 32.2 pg (27.0-33.0); Mean Corpuscular Volume 93.8 fL (80.0-98.0); Mean Platelet Volume 9.4 fL (9.4-12.4); Monocytes Absolute Auto 0.6 X10*3/uL (0.1-1.2); Monocytes Percent Auto 12.4 % (2-11); Neutrophils Absolute Auto 2.2 x10*3/uL (2.0-8.3); Neutrophils Percent Auto 47.2 % (45-73); Platelet Count 244 X10*3/uL (160-400); Red Blood Count 4.32 X10*6/uL (4.60-5.80); White Blood Count 4.6 X10*3/uL (4.8-10.8)
[2022-07-11 09:06] LABS: Estimated Average Glucose 108 mg/dL; Hemoglobin A1c % 5.4 %
[2022-07-11 09:31] LABS: Alanine Aminotransferase 22 U/L (0-40); Albumin Level 4.5 g/dL (3.5-5.0); Alkaline Phosphatase 51 U/L (39-117); Anion Gap 13 (12-20); Aspartate Amino Transferase 20 U/L (5-37); Bilirubin Total 0.5 mg/dL (0.0-1.0); Blood Urea Nitrogen 14 mg/dL (9-16); Calcium 9.3 mg/dL (8.4-10.2); Carbon Dioxide 26 mmol/L (22-29); Chloride 105 mmol/L (96-108); Cholesterol 182 mg/dL; Estimated Glomerular Filt Rate > 60; Glucose Fasting 106 mg/dL (60-99); HDL Cholesterol 66 mg/dL; LDL Cholesterol Calculated 107 mg/dl; Sodium 140 mmol/L (135-145); Triglycerides 48 mg/dL
[2022-07-11 09:39] LABS: PSA,Total (Free>4and<10) 0.69 ng/mL (0.00-4.00)
[2022-07-11 09:50] LABS: TSH reflex Free T4 0.79 uIU/mL (0.32-4.0); Vitamin D 25-OH Total 25.3 ng/mL (>30)
[2022-07-11 11:38] LABS: Appearance Urine Clear; Color Urine Yellow; Glucose Urine UA Negative (Negative); Leukocyte Esterase Urine Negative (Negative); Nitrite Urine Negative (Negative); UMIC TRIGGER UACC YES; Urine Blood Small (1+) (Negative); Urine Ketones Negative (Negative); Urine Protein Negative (Neg-Trace)
[2022-07-11 12:14] LABS: Bacteria Urine None Seen (None Seen); Hyaline Casts Urine 0-2 /LPF (0-2); Squamous Epithelial Cell Urine 0-2 /HPF (0-2); WBC Urine 0-5 /HPF (0-5)
== END 2022-07-11 07:58 | disposition home or self-care (01) ==
LOC: HO.LAB 07:57
PROVIDERS: Absent Provider Internal Medicine; PCP Internal Medicine; Visit Provider Nurse Practitioner Family
DX: Z12.5 Encounter for screening for malignant neoplasm of prostate (principal); R73.01 Impaired fasting glucose; E78.00 Pure hypercholesterolemia, unspecified; E55.9 Vitamin D deficiency, unspecified; R35.0 Frequency of micturition; R35.1 Nocturia; R39.15 Urgency of urination; I10 Essential (primary) hypertension
CPT/HCPCS: 36415; 80053; 80061; 81001; 82306; 83036; 84153; 84443; 85025

== ENCOUNTER 2022-07-17 10:37 | Outpatient (REF) | payer OTHER, SELFPAY ==
[2022-07-17 17:10] LABS: Urine Cytology See Pathology rpt
== END 2022-07-17 10:38 | disposition home or self-care (01) ==
LOC: HO.LAB 10:37
PROVIDERS: PCP Internal Medicine; Visit Provider Nurse Practitioner Family
DX: R31.29 Other microscopic hematuria (principal); N40.1 Benign prostatic hyperplasia with lower urinary tract symptoms; R35.0 Frequency of micturition; R39.15 Urgency of urination; R35.1 Nocturia; Z87.442 Personal history of urinary calculi; Z79.899 Other long term (current) drug therapy
CPT/HCPCS: 51798; 88112; 99212

== ENCOUNTER → 2022-08-22 10:08 | Outpatient (BNVA) | payer OTHER, SELFPAY | PROVIDERS: PCP Internal Medicine; Visit Provider Urology | DX: R35.1 Nocturia (principal); R39.15 Urgency of urination; R31.29 Other microscopic hematuria; R82.89 Other abnormal findings on cytological and histological examination of urine; N20.0 Calculus of kidney | CPT/HCPCS: 52000; 99212 ==

== ENCOUNTER 2022-12-12 07:07 | Outpatient (REF) | payer OTHER, SELFPAY ==
[2022-12-12 07:20] LABS: MANUAL DIFF FLAG NO
[2022-12-12 09:15] LABS: Basophils Percent Auto 0.8 % (0-2); Eosinophils Absolute Auto 0.2 X10*3/uL (0.0-0.4); Eosinophils Percent Auto 3.9 % (0-4); Hematocrit 44.3 % (42.0-52.0); Hemoglobin 14.7 g/dl (14.0-18.0); Imm Gran Abs Auto 0.01 X10*3/uL (0.00-0.03); Imm Gran Pct Auto 0.2 % (0.0-0.4); Lymphocytes Absolute Auto 1.8 X10*3/uL (1.2-4.9); Lymphocytes Percent Auto 36.2 % (20-40); Mean Corpuscular HGB Conc 33.2 g/dl (31.0-36.0); Mean Corpuscular Volume 96.3 fL (80.0-98.0); Monocytes Absolute Auto 0.7 X10*3/uL (0.1-1.2); Monocytes Percent Auto 14.5 % (2-11); Neutrophils Absolute Auto 2.2 x10*3/uL (2.0-8.3); Neutrophils Percent Auto 44.4 % (45-73); Platelet Count 264 X10*3/uL (160-400); Red Cell Distribution Width 12.1 % (11.0-16.0); White Blood Count 4.9 X10*3/uL (4.8-10.8)
[2022-12-12 09:40] LABS: Appearance Urine Clear; Color Urine Yellow; Glucose Urine UA Negative (Negative); Leukocyte Esterase Urine Negative (Negative); Nitrite Urine Negative (Negative); Urine Blood Negative (Negative); Urine Ketones Negative (Negative); Urine Protein Negative (Neg-Trace)
[2022-12-12 09:51] LABS: Alanine Aminotransferase 18 U/L (0-40); Albumin Level 4.7 g/dL (3.5-5.0); Alkaline Phosphatase 54 U/L (39-117); Anion Gap 13 (12-20); Aspartate Amino Transferase 20 U/L (5-37); Bilirubin Total 0.5 mg/dL (0.0-1.0); Blood Urea Nitrogen 11 mg/dL (9-16); Carbon Dioxide 29 mmol/L (22-29); Chloride 101 mmol/L (96-108); Cholesterol 187 mg/dL; Estimated Glomerular Filt Rate > 60; Glucose Fasting 102 mg/dL (60-99); HDL Cholesterol 68 mg/dL; LDL Cholesterol Calculated 106 mg/dl; Potassium 4.3 mmol/L (3.3-5.1); Sodium 139 mmol/L (135-145); Triglycerides 68 mg/dL
[2022-12-12 09:54] LABS: Vitamin D 25-OH Total 38.5 ng/mL (>30)
== END 2022-12-12 07:08 | disposition home or self-care (01) ==
LOC: HO.LAB 07:07
PROVIDERS: PCP Internal Medicine; Visit Provider Internal Medicine
DX: E78.00 Pure hypercholesterolemia, unspecified (principal); E55.9 Vitamin D deficiency, unspecified; R30.0 Dysuria; I10 Essential (primary) hypertension
CPT/HCPCS: 36415; 80053; 80061; 81003; 82306; 85025

== ENCOUNTER 2022-12-18 09:57 | Outpatient (AMB) | payer OTHER, SELFPAY ==
[2022-12-18 10:12] VITALS: BP 128/68; PULSE 71; O2SAT 98; BMI 27.3
--- NOTE | 2022-12-18 10:12 | MHC.PC.OV ---
Vital Signs 12/18/22 10:12 Height 5 ft 5 in Weight 164 lb BMI 27.3 BP 128/68 Blood Pressure Location Lt brachial Position Sitting Pulse 71 Pulse Source Pulse Oximeter Pulse Oximetry (%) 98 Oxygen Delivery Method Room Air Intake Visit Reasons: 4m F/U hyperlipidemia, gastritis Allergies No Known Allergies [No Known Allergies*] Allergy (Verified 12/18/22 10:52) Medication List - Last Reconciled 12/18/22 by Gorge Reynolds MD atorvastatin 40 mg PO BEDTIME cholecalciferol (vitamin D3) (Vitamin D3) 25 mcg PO DAILY dexlansoprazole (Dexilant) 60 mg PO BEDTIME tamsulosin 0.4 mg PO BEDTIME 90 days terbinafine HCl 250 mg PO DAILY Tobacco use date assessed: 07/25/22 Dental Screening Dental Screen Date: 12/18/22 Did you have a dental visit in the last 12 months?: No Did you have a dental problem in the last 6 months where you did not have access to dental care?: No Was dental information given to patient?: No HPI 4m F/U hyperlipidemia, gastritis HPI Details Patient comes in today for his follow up visit States that he feels okay He denies any headaches or dizziness Denies any chest pains, no SOB No nausea/vomiting, no abdominal pain No change in bowel habits noted Adds that he has (+) Hx of cataracts and continues to have trouble with his vision States that he used to see Dr. Cano years ago but has not been back to see him in years and is unable to schedule any follow up appts and would like to request a referral to another eye doctor Had his follow up labs done last week - to discuss his results [facility] Medical History Allergic rhinitis GERD (gastroesophageal reflux disease) IBS (irritable bowel syndrome) Impaired fasting glucose Microscopic hematuria Nocturia Onychia and paronychia of finger Overweight (BMI 25.0-29.9) Pure hypercholesterolemia Superficial gastritis without hemorrhage Vitamin D deficiency Surgical History History of colonoscopy History of esophagogastroduodenoscopy (EGD) Family History Father Medical history unknown Mother Hypertension Maternal Aunt Cancer Maternal Uncle Cancer Social History Household Members: Family Housing: Apartment Do you presently have visiting nurse or other home services: No Alcohol intake: current Alcohol intake frequency: a few times a week Alcohol type: beer Patient Tobacco Use Status: Never used Tobacco e-Cigarette/Vaping Use: Never Used Second Hand Smoke Exposure: Yes service: No Current occupational status: unemployed Cognitive needs: No Hearing needs: No Vision needs: No Questionnaire PHQ-9 Over the last 2 weeks, how often have you been bothered by any of the following problems? 1. Little interest or pleasure in doing things: not at all 2. Feeling down, depressed, or hopeless: not at all 3. Trouble falling or staying asleep, or sleeping too much: not at all 4. Feeling tired or having little energy: not at all 5. Poor appetite or overeating: not at all 6. Feeling bad about yourself - or that you are a failure or have let yourself or your family down: not at all 7. Trouble concentrating on things, such as reading the newspaper or watching television: not at all 8. Moving or speaking so slowly that other people could have noticed. Or the opposite - being so fidgety or restless that you have been moving around a lot more than usual: not at all 9. Thoughts that you would be better off or of hurting yourself in some way: not at all Total score: 0 Depression Screening Interpretation: Negative 87815 - PHQ-9 Billing: Yes Source: Developed by Drs. Erik Gauthier, Milton Calvert and colleagues, with an educational hudson from [employer]. Thrive Questionnaire Date Thrive assessed: 07/25/22 AUDIT C Alcohol Use Questionnaire (AUDIT-C) 1. How often do you have a drink containing alcohol?: Never 3. How often do you have six or more drinks on one occasion?: Never Total Score: 0 Score Reviewed/Action Taken: Yes GARRET-7 AMB Questionnaire GARRET-7 Date GARRET - 7 assessed: 07/25/22 Source: Developed by Drs. Erik Gauthier, Milton Calvert and colleagues, with an educational hudson from [employer]. Review of Systems Const Denies fatigue, Denies fever(s) and Denies headache(s) ENT Denies dysphagia, Denies dizziness, Denies headache(s), Denies neck pain, Denies odynophagia and Denies sore throat Card Denies chest pain, Denies palpitations and Denies dyspnea Resp Denies cough, Denies dyspnea and Denies wheezing GI Denies abdominal pain, Denies constipation, Denies dysphagia, Denies heartburn, Denies diarrhea, Denies nausea, Denies odynophagia and Denies vomiting Denies dysuria, Denies nocturia (improved with Rx), Denies urinary frequency (improved with Rx) and Denies urinary incontinence Musc Denies back pain, Denies arthralgias and Denies neck pain Skin/Breast Details: (+) fungal toenails on a few toes; (+) dark lines noted on the nails of both middle fingers - gradually improving with Terbinafine Denies lesions and Denies rash Neuro Denies dizziness and Denies headache(s) Endo Denies fatigue and Denies palpitations Aller/Immun Denies wheezing Physical exam (Primary Care) Vital Signs: Last Vital Signs Pulse 71 12/18/22 10:12 BP 128/68 12/18/22 10:12 Pulse Ox 98 12/18/22 10:12 Oxygen Delivery Method Room Air 12/18/22 10:12 BMI result Body Mass Index 27.3 Tobacco/Smoking Status: Tobacco use Status Tobacco use date assessed 07/25/22 12/18/22 10:16 Patient Tobacco Use Status Never used Tobacco 12/18/22 10:16 e-Cigarette/Vaping Use Never Used 12/18/22 10:16 PHQ-9: PHQ-9 Score PHQ-9: Total score 0 12/18/22 11:00 Depression Screening Interpretation: Negative Thrive Assessment: Date of Thrive Assessment Date Thrive assessed 07/25/22 12/18/22 10:16 Const General: no acute distress and alert HENMT Ears: TM's normal bilaterally and EAC's normal Throat: Yes posterior oropharynx normal and Yes tonsils normal (no TP congestion noted) Neck Neck: Yes no lymphadenopathy and Yes supple Thyroid: Thyroid normal Resp Auscultation: clear to auscultation bilaterally, no rales and no wheezes Cardio Rate: regular rate Rhythm: regular rhythm Heart sounds: no murmurs GI Palpation (GI): Soft to palpation and nontender Auscultation: normal bowel sounds Extrem General: Yes no clubbing, cyanosis or edema Results Reviewed Results Reviewed: Laboratory Tests 12/12/22 12/12/22 12/12/22 07:15 07:19 07:19 WBC 4.9 Hgb 14.7 Hct 44.3 Plt Count 264 Sodium 139 Potassium 4.3 Creatinine 0.85 Estimated GFR > 60 Fasting Glucose 102 H Calcium 10.0 D AST 20 ALT 18 Triglycerides 68 Cholesterol 187 LDL Cholesterol, Calc 106 HDL Cholesterol 68 25-OH Vitamin D Total 38.5 Ur Specific [place] 1.020 Urine Protein Negative Urine Glucose (UA) Negative Urine Blood Negative Assessment and Plan Assessment & Plan (1) Pure hypercholesterolemia: Code(s): E78.00 - Pure hypercholesterolemia, unspecified Plan: Results of his labs done last week reviewed and discussed with patient Reinforced low cholesterol diet Continue Atorvastatin 40 mg QD Will recheck fasting lipids and labs in 4 months for follow up (2) Superficial gastritis without hemorrhage: Code(s): K29.30 - Chronic superficial gastritis without bleeding Qualifiers: Chronicity: unspecified Qualified Code(s): K29.30 - Chronic superficial gastritis without bleeding Plan: Dietary restrictions reinforced EGD done in 2018 revealed findings consistent with antral gastritis Continue Dexilant 60 mg QD? (taken in the evening for better efficacy) - has not had any flare up of his GI symptoms for several months Follow up with GI as scheduled (3) Impaired fasting glucose: Code(s): R73.01 - Impaired fasting glucose Plan: HgbA1c has remained normal at 5.4% on his labs done a few months ago Reinforced low calorie diet/exercise as tolerated (4) Gallbladder polyp: Code(s): K82.4 - Cholesterolosis of gallbladder Plan: This was initially seen on abdominal US done at the ER in July 2021 when he presented there for abdominal pain Recommended follow up US in 6 months - US ordered but patient ended up getting an abdominal and pelvic CT when he presented to the ER in April 2022 for enterocolitis Abdominal and pelvic CT back then revealed that the the liver is normal in size, shape, and attenuation with no focal hepatic lesion or biliary ductal dilatation; the gallbladder is unremarkable with no evidence of radiopaque gallstones, gallbladder wall thickening, or obvious pericholecystic inflammatory changes.? (5) Allergic rhinitis: Code(s): J30.9 - Allergic rhinitis, unspecified Qualifiers: Allergic rhinitis seasonality: unspecified Allergic rhinitis trigger: unspecified Qualified Code(s): J30.9 - Allergic rhinitis, unspecified Plan: Continue OTC Loratadine 10 mg QD PRN (6) Vitamin D deficiency: Code(s): E55.9 - Vitamin D deficiency, unspecified Plan: Continue Vitamin D3 1000 units QD (7) Blurred vision, bilateral: Code(s): H53.8 - Other visual disturbances Plan: Reports that he has (+) Hx of cataracts States that he used to see Dr. Cano years ago but has not been back to see him in years and is unable to schedule any appts Per request, will refer him to another ophthalmology practice for further evaluation and management (8) Urinary frequency: Code(s): R35.0 - Frequency of micturition Plan: Most likely due to BPH; PSA was normal when checked last year and remained normal on his recent labs States that his urinary frequency and nocturia have improved a lot with Rx - continue Tamsulosin 0.4 mg Q HS for now Follow up with urology as scheduled (9) Onychomycosis: Code(s): B35.1 - Tinea unguium Plan: Continue Terbinafine 250 mg QD - started by podiatry a few months ago LFTs remained normal on his recent labs Follow up with podiatry as scheduled (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 Panel Fast 4 Months E78.00 - Pure hypercholesterolemia, unspecified Hemoglobin A1c 4 Months R73.01 - Impaired fasting glucose Lipid Panel 4 Months E78.00 - Pure hypercholesterolemia, unspecified TSH reflex Free T4 4 Months E78.00 - Pure hypercholesterolemia, unspecified Vitamin D 25-OH Total 4 Months E55.9 - Vitamin D deficiency, unspecified Complete Blood Count Auto Diff 4 Months I10 - Essential (primary) hypertension UA CC w/rflx Micro + Cult 4 Months R30.0 - Dysuria Referrals Ophthalmology Referral H53.8 - Other visual disturbances Coding Level of Care Code Est Pt Level 4 (17151) Diagnoses Pure hypercholesterolemia E78.00 Superficial gastritis without hemorrhage K29.30 Chronicity: unspecified Impaired fasting glucose R73.01 Gallbladder polyp K82.4 Allergic rhinitis J30.9 Allergic rhinitis seasonality: unspecified Allergic rhinitis trigger: unspecified Vitamin D deficiency E55.9 Blurred vision, bilateral H53.8 Urinary frequency R35.0 Onychomycosis B35.1 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 Overweight (BMI 25.0-29.9) E66.3
== END 2022-12-18 11:13 | disposition home or self-care (01) ==
PROVIDERS: PCP Internal Medicine; Visit Provider Internal Medicine
DX: E78.00 Pure hypercholesterolemia, unspecified (principal); K29.30 Chronic superficial gastritis without bleeding; R73.01 Impaired fasting glucose; E55.9 Vitamin D deficiency, unspecified; K82.4 Cholesterolosis of gallbladder; J30.9 Allergic rhinitis, unspecified; H53.8 Other visual disturbances; R35.0 Frequency of micturition; B35.1 Tinea unguium; L60.8 Other nail disorders; E66.3 Overweight
CPT/HCPCS: 99214

== ENCOUNTER 2023-01-08 05:51 | Emergency (ER) | payer OTHER, SELFPAY ==
[2023-01-08 05:56] VITALS: BP 140/82; PULSE 63; RESP 18; TEMP 36.7; O2SAT 100; BMI 26.6
--- NOTE | 2023-01-08 07:05 | ED_ITS ---
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 Mode of arrival: ambulatory Limitations: no limitations History of Present Illness HPI narrative: 57 yo male no hx of DM here with c/o R paronychia hx of same in the past no fevers, n/v no recent treatment with antibioitics or aspiration complaint: abscess/boil Onset (ago): day(s) (2) Tetanus up to date: unsure Location: RUE (R thumb) Severity: mild Quality: aching Pain Consistency: constant Relieving factors: none Exacerbating factors: palpation Context: other (hx of similar episodes) Associated symptoms: denies other symptoms Treatments prior to arrival: none Related Data Home Medications Medication Instructions Recorded Confirmed cholecalciferol (vitamin D3) 25 25 mcg PO DAILY 05/15/22 12/18/22 mcg (1,000 unit) capsule (Vitamin D3) terbinafine HCl 250 mg tablet 250 mg PO DAILY 07/25/22 12/18/22 Previous Rx's Medication Instructions Recorded tamsulosin 0.4 mg capsule 0.4 mg PO BEDTIME 90 days #90 caps 07/17/22 atorvastatin 40 mg tablet 40 mg PO BEDTIME #90 tabs 09/10/22 dexlansoprazole 60 mg 60 mg PO BEDTIME #30 caps 11/27/22 capsule,biphase delayed release (Dexilant) amoxicillin 875 mg-potassium 1 tab PO BID #13 tabs 01/08/23 clavulanate 125 mg tablet Allergies Allergy/AdvReac Type Severity Reaction Status Date / Time No Known Allergies Allergy Verified 12/18/22 10:52 [No Known Allergies*] Review of Systems Review of Systems: Constitutional : No Fever, No Chills Cardiovascular : No Chest Pain, No SOB Respiratory : No Cough, No Sputum Gastrointestinal : No Nausea, No Vomiting, No Diarrhea, No abdominal Pain Genitourinary : No Dysuria, No Hematuria Musculoskeletal : No joint pain, No Myalgias, No Joint Swelling Skin : No Skin Lesions, positive skin rash Neuro : No Weakness, No Numbness, No Headache Psych : No Anxiety, No Depression All other systems reviewed and are negative PMFSH Past Medical History Attestation statement: The following information was validated with the patient. Source: old records reviewed Medical History Allergic rhinitis GERD (gastroesophageal reflux disease) IBS (irritable bowel syndrome) Impaired fasting glucose Microscopic hematuria Nocturia Onychia and paronychia of finger Overweight (BMI 25.0-29.9) Pure hypercholesterolemia Superficial gastritis without hemorrhage Vitamin D deficiency Surgical History History of colonoscopy History of esophagogastroduodenoscopy (EGD) Family History Family History Father Medical history unknown Mother Hypertension Maternal Aunt Cancer Maternal Uncle Cancer Social History Social History Household Members: Family Housing: Apartment Do you presently have visiting nurse or other home services: No Alcohol intake: current Alcohol intake frequency: a few times a week Alcohol type: beer Patient Tobacco Use Status: Never used Tobacco e-Cigarette/Vaping Use: Never Used Second Hand Smoke Exposure: Yes Advance Directives: No Advance Directives Information Provided: Yes service: No Current occupational status: unemployed Cognitive needs: No Hearing needs: No Vision needs: No Physical Exam Vital Signs: Vital Signs: Last Vital Signs Temp 97.7 F 01/08/23 07:21 Pulse 64 01/08/23 07:21 Resp 16 01/08/23 07:21 BP 120/75 01/08/23 07:21 Pulse Ox 100 01/08/23 05:56 O2 Del Method Room Air 01/08/23 07:21 O2 Flow Rate 97 01/08/23 07:21 BMI result Body Mass Index 26.6 Appearance: Alert. Oriented X3. No acute distress. Eyes: Pupils equal, round and reactive to light. ENT: Pharynx normal. Neck: Normal inspection. Neck supple. CVS: Pulses normal. Respiratory: No respiratory distress. Abdomen: Soft and nontender. Skin: Skin warm and dry. Normal skin color. R thumb calloused skin and dry proximal nail fold small paronychia with yellowing of the skin noted otherwise NV Intact normal ROM and no signs of ext onto the finger or tendon sheath Extremities: No lower extremity edema. Neuro: Oriented X 3. No motor deficit. No sensory deficit. Medical Decision Making Medical Decision Making MDM Narrative: 57 yo male not a diabetic here with c/o R thumb paronychia hx of same in past - likely due to chronically dry and cracked thumb. He has no signs of extension or deeper space infection will I+D and start on augmentin with infection precautions and reasons to return. Differential Diagnosis Differential Diagnoses: The differential diagnosis associated with the presentation includes cellulitis, paronychia, abscess Admission/Observation Consideration of admission/observation: Escalation of care including admission/observation considered not toxic normal VS can be managed with oral antibiotics. Independent Historian Clinical information obtained from an independent historian. History obtained from or confirmed by: Friend External Record Review External record reviewed: Office record Prescription Management I considered prescription management with: Antibiotic Procedures Abscess I/D Site: hand (R thumb) Side (if applicable): right Technique: needle aspiration Amount of fluid expressed (mL): 1 Sent for culture/gram staining?: No Packing used?: none Discharge Plan Discharge Clinical Impression: Paronychia of finger Patient Disposition: Home, Self-Care Instructions: Paronychia (ED) Additional Instructions: return for increased pain, fevers, redness, or no improvement on antibiotics. take a a probiotic while on augmentin. more than 6 loose stools while on antibiotic is not normal seek care if this happens. soak finger in warm water betadine twice a day for 10 minutes for 3 days. regresar por aumento del dolor, fiebre, enrojecimiento o ausencia de mejor?a con los antibi?ticos. tome un probi?tom mientras est? en Augmentin. m?s de 6 deposiciones sueltas mientras rosa antibi?ticos no es normal busque atenci?n si esto sucede. remoje el dedo en betadine con agua tibia dos veces al d?a josselyn 10 minutos josselyn 3 d?as. Prescriptions: New amoxicillin-pot clavulanate 875-125 mg tablet 1 tab PO BID Qty: 13 0RF No Action atorvastatin 40 mg tablet 40 mg PO BEDTIME Qty: 90 0RF dexlansoprazole [Dexilant] 60 mg capsule,biphase delayed releas 60 mg PO BEDTIME Qty: 30 6RF terbinafine HCl 250 mg tablet 250 mg PO DAILY cholecalciferol (vitamin D3) [Vitamin D3] 25 mcg (1,000 unit) capsule 25 mcg PO DAILY tamsulosin 0.4 mg capsule 0.4 mg PO BEDTIME 90 Days Qty: 90 3RF Print Language: Czech
[2023-01-08 07:21] VITALS: BP 120/75; PULSE 64; RESP 16; TEMP 36.5
[2023-01-08] MEDS: Amoxicillin/Potassium Clav 875 MG TABLET PO (07:44)
== END 2023-01-08 07:49 | disposition home or self-care (01) ==
PROVIDERS: Emergency Provider Emergency Medicine; PCP Internal Medicine
DX: L03.011 Cellulitis of right finger (principal); Z79.899 Other long term (current) drug therapy
CPT/HCPCS: 26010; 99284

== ENCOUNTER 2023-03-20 07:57 | Outpatient (REF) | payer OTHER, SELFPAY ==
[2023-03-20 08:08] LABS: MANUAL DIFF FLAG NO
[2023-03-20 08:27] LABS: Basophils Percent Auto 0.4 % (0-2); Eosinophils Absolute Auto 0.1 X10*3/uL (0.0-0.4); Eosinophils Percent Auto 2.2 % (0-4); Hematocrit 42.7 % (42.0-52.0); Hemoglobin 14.9 g/dl (14.0-18.0); Imm Gran Abs Auto 0.01 X10*3/uL (0.00-0.03); Imm Gran Pct Auto 0.2 % (0.0-0.4); Lymphocytes Absolute Auto 1.7 X10*3/uL (1.2-4.9); Lymphocytes Percent Auto 33.3 % (20-40); Mean Corpuscular HGB Conc 34.9 g/dl (31.0-36.0); Mean Corpuscular Hemoglobin 32.3 pg (27.0-33.0); Mean Corpuscular Volume 92.6 fL (80.0-98.0); Mean Platelet Volume 9.3 fL (9.4-12.4); Monocytes Absolute Auto 0.7 X10*3/uL (0.1-1.2); Neutrophils Absolute Auto 2.5 x10*3/uL (2.0-8.3); Neutrophils Percent Auto 49.9 % (45-73); Platelet Count 242 X10*3/uL (160-400); Red Blood Count 4.61 X10*6/uL (4.60-5.80); Red Cell Distribution Width 11.8 % (11.0-16.0); White Blood Count 5.1 X10*3/uL (4.8-10.8)
[2023-03-20 08:35] LABS: Estimated Average Glucose 105 mg/dL; Hemoglobin A1c % 5.3 % (<6.0)
[2023-03-20 09:16] LABS: Appearance Urine Clear; Color Urine Yellow; Glucose Urine UA Negative (Negative); Leukocyte Esterase Urine Negative (Negative); Nitrite Urine Negative (Negative); PH 7.5 (5.0-9.0); Specific Gravity - Urine 1.015 (1.005-1.025); UMIC TRIGGER UACC YES; Urine Blood Trace (Negative); Urine Ketones Negative (Negative); Urine Protein Negative (Neg-Trace)
[2023-03-20 09:21] LABS: Bacteria Urine None Seen (None Seen); Hyaline Casts Urine 0-2 /LPF (0-2); Squamous Epithelial Cell Urine 0-2 /HPF (0-2); WBC Urine 0-5 /HPF (0-5)
[2023-03-20 09:25] LABS: Alanine Aminotransferase 18 U/L (0-40); Albumin Level 4.7 g/dL (3.5-5.0); Alkaline Phosphatase 52 U/L (39-117); Anion Gap 12 (12-20); Aspartate Amino Transferase 18 U/L (5-37); Bilirubin Total 0.6 mg/dL (0.0-1.0); Blood Urea Nitrogen 13 mg/dL (9-16); Calcium 9.6 mg/dL (8.4-10.2); Carbon Dioxide 28 mmol/L (22-29); Chloride 103 mmol/L (96-108); Cholesterol 168 mg/dL (<200); Estimated Glomerular Filt Rate > 60; Glucose Fasting 98 mg/dL (60-99); HDL Cholesterol 59 mg/dL (>40); LDL Cholesterol Calculated 97 mg/dL (<100); Sodium 139 mmol/L (135-145); Total Protein 7.7 g/dL (6.5-8.0); Triglycerides 60 mg/dL (<150)
[2023-03-20 09:43] LABS: TSH reflex Free T4 0.88 uIU/mL (0.32-4.0)
== END 2023-03-20 07:58 | disposition home or self-care (01) ==
LOC: HO.LAB 07:57
PROVIDERS: PCP Internal Medicine; Visit Provider Internal Medicine
DX: E78.00 Pure hypercholesterolemia, unspecified (principal); E55.9 Vitamin D deficiency, unspecified; R73.01 Impaired fasting glucose; I10 Essential (primary) hypertension
CPT/HCPCS: 36415; 80053; 80061; 81001; 82306; 83036; 84443; 85025

== ENCOUNTER 2023-03-26 08:52 | Outpatient (AMB) | payer OTHER, SELFPAY ==
[2023-03-26 08:55] VITALS: BP 138/90; PULSE 72; O2SAT 98; BMI 27.3
--- NOTE | 2023-03-26 08:55 | A.OFFPC_ITS ---
Vital Signs 03/26/23 08:55 Height 5 ft 5 in Weight 164 lb BMI 27.3 BP 138/90 H Blood Pressure Location Lt brachial Position Sitting Pulse 72 Pulse Source Pulse Oximeter Pulse Oximetry (%) 98 Oxygen Delivery Method Room Air Intake Visit Reasons: Annual Exam Budget Coordinator Required: No Accompanied by: Self / Same As Patient Allergies No Known Allergies [No Known Allergies*] Allergy (Verified 03/26/23 09:43) Medication List - Last Reconciled 03/26/23 by Gorge Reynolds MD atorvastatin 40 mg PO BEDTIME cholecalciferol (vitamin D3) (Vitamin D3) 25 mcg PO DAILY dexlansoprazole (Dexilant) 60 mg PO BEDTIME tamsulosin 0.4 mg PO BEDTIME 90 days terbinafine HCl 250 mg PO DAILY Tobacco use date assessed: 03/26/23 Dental Screening Dental Screen Date: 03/26/23 Did you have a dental visit in the last 12 months?: No Did you have a dental problem in the last 6 months where you did not have access to dental care?: No Was dental information given to patient?: No HPI Annual Exam HPI Details Patient comes in today for his annual physical examination States that he feels okay except for recurrent pain in the left shoulder and left elbow, which he states have been going on for a few years now States that his shoulder is now acting up again and trying to raise his left arm would trigger some sharp pains in his shoulder Adds that he would sometimes feel some sharp pain radiating down his arm into his left hand Denies any history of injury or trauma to his shoulder He denies any headaches or dizziness Denies any chest pains, no SOB No nausea/vomiting, no abdominal pain No change in bowel habits noted He denies any acute urinary symptoms Had his follow up labs done last week - to discuss his results His PSA was normal when last checked in June 2022 Had his screening colonoscopy with Dr. Ervin back in 12/2016 - which showed (+) minor diverticulosis; was advised to have a repeat colonoscopy in 10 years Patient's also adds that patient actually has a disability and does not really know how to read and write - states that they are considering filing for disability benefits and they are wondering if his papers that needs to be filled out can come here for us to do them He would also like to get his flu shot today [facility] Medical History Nocturia Onychia and paronychia of finger GERD (gastroesophageal reflux disease) IBS (irritable bowel syndrome) Overweight (BMI 25.0-29.9) Microscopic hematuria Vitamin D deficiency Allergic rhinitis Impaired fasting glucose Superficial gastritis without hemorrhage Pure hypercholesterolemia Surgical History History of esophagogastroduodenoscopy (EGD) History of colonoscopy Family History Father Medical history unknown Mother Hypertension Maternal Aunt Cancer Maternal Uncle Cancer Social History Household Members: Family Housing: Apartment Do you presently have visiting nurse or other home services: No Alcohol intake: current Alcohol intake frequency: holidays/special occasions only Alcohol type: beer Patient Tobacco Use Status: Never used Tobacco e-Cigarette/Vaping Use: Never Used Second Hand Smoke Exposure: Yes service: No Current occupational status: unemployed Cognitive needs: No Hearing needs: No Vision needs: No Questionnaire PHQ-9 Over the last 2 weeks, how often have you been bothered by any of the following problems? 1. Little interest or pleasure in doing things: not at all 2. Feeling down, depressed, or hopeless: not at all 3. Trouble falling or staying asleep, or sleeping too much: not at all 4. Feeling tired or having little energy: not at all 5. Poor appetite or overeating: not at all 6. Feeling bad about yourself - or that you are a failure or have let yourself or your family down: not at all 7. Trouble concentrating on things, such as reading the newspaper or watching television: not at all 8. Moving or speaking so slowly that other people could have noticed. Or the opposite - being so fidgety or restless that you have been moving around a lot more than usual: not at all 9. Thoughts that you would be better off or of hurting yourself in some way : not at all Total score: 0 Depression Screening Interpretation: Negative Depression Screening Done: Yes 08160 - PHQ-9 Billing: Yes Source: Developed by Drs. Erik Gauthier, Asuncion Morfin, Milton Trammell and colleagues, with an educational hudson from [employer]. Thrive Questionnaire Date Thrive assessed: 03/26/23 I am a: Patient What is your living situation today?: I have a steady place to live Within the past 12 months, did the food you bought not last and you didn't have the money to get more?: Never true Within the past 12 months, did you worry whether your food would run out before you got money to buy more?: Never true Do you have trouble paying for medicines?: No Do you have trouble getting transportation to medical appointments?: No Do you have trouble paying your heating and electricity bill?: No Do you have trouble taking care of your child, family member or friend?: No Do you have trouble with day-to-day activities such as bathing, preparing meals, shopping, managing finances, etc.?: No Are you currently unemployed and looking for a job?: No Are you interested in more education?: No Please select the resources that you would like help with: None Currently or been in a relationship where the following occur: no concerns reported AUDIT C Alcohol Use Questionnaire (AUDIT-C) 1. How often do you have a drink containing alcohol?: Never 3. How often do you have six or more drinks on one occasion?: Never Total Score: 0 Score Reviewed/Action Taken: Yes GARRET-7 AMB Questionnaire GARRET-7 Date GARRET - 7 assessed: 03/26/23 Feeling nervous, anxious, or on edge: 0 = Not at all Not being able to stop or control worryin = Not at all Worrying too much about different things: 0 = Not at all Trouble relaxin = Not at all Being so restless that it is hard to sit still: 0 = Not at all Becoming easily annoyed or irritable: 0 = Not at all Feeling afraid as if something awful might happen: 0 = Not at all Total GARRET-7 score (0-4 normal; 5-9 mild; 10-14 moderate; 15-21 severe): 0 Source: Developed by Asuncion Goldstein, Milton Trammell and colleagues, with an educational hudson from [employer]. Review of Systems Const Denies chills, Denies fatigue, Denies fever(s), Denies headache(s), Denies malaise and Denies weakness Eyes Denies blurry vision, Denies change in vision, Denies irritation and Denies itchy eyes ENT Denies dysphagia, Denies dizziness, Denies otalgia, Denies headache(s), Denies nasal congestion, Denies neck pain, Denies odynophagia and Denies sore throat Card Denies chest pain, Denies rapid heart rate, Denies irregular heart rhythm, Denies palpitations and Denies dyspnea Resp Denies chest congestion, Denies cough, Denies dyspnea and Denies wheezing GI Denies abdominal pain, Denies bloating, Denies constipation, Denies dysphagia, Denies heartburn, Denies diarrhea, Denies nausea, Denies odynophagia and Denies vomiting Denies hematuria, Denies difficulty urinating, Denies dysuria, Denies urinary frequency and Denies urinary urgency Musc Denies back pain, Reports arthralgias (on and off pain in the left elbow and left shoulder), Denies joint swelling, Denies muscle weakness, Denies neck pain and Reports radiating pain into limb (down left arm at times) Skin/Breast Denies change in pigmentation, Denies lesions, Denies rash and Denies unusual bruising Neuro Denies dizziness, Denies headache(s), Denies paresthesias and Denies weakness Endo Denies fatigue and Denies palpitations Aller/Immun Denies itchy eyes and Denies wheezing Physical exam (Primary Care) Vital Signs: Last Vital Signs Pulse 72 03/26/23 08:55 BP 138/90 H 03/26/23 08:55 Pulse Ox 98 03/26/23 08:55 Oxygen Delivery Method Room Air 03/26/23 08:55 BMI result Body Mass Index 27.3 Tobacco/Smoking Status: Tobacco use Status Tobacco use date assessed 03/26/23 03/26/23 08:59 Patient Tobacco Use Status Never used Tobacco 03/26/23 08:59 e-Cigarette/Vaping Use Never Used 03/26/23 08:59 PHQ-9: PHQ-9 Score PHQ-9: Total score 0 03/26/23 09:46 Depression Screening Interpretation: Negative Thrive Assessment: Date of Thrive Assessment Date Thrive assessed 03/26/23 03/26/23 08:59 Currently or been in a relationship where the following occur: no concerns r eported Const General: no acute distress, alert and awake Orientation/consciousness: patient oriented x3 HENMT Head: Yes normocephalic and Yes atraumatic Ears: external ears normal, TM's normal bilaterally and EAC's normal General nose exam: No nasal discharge present Face and sinus: Yes normal facial exam and Yes sinuses nontender Teeth and gingiva: dentition normal Throat: Yes posterior oropharynx normal and Yes tonsils normal (no TP congestion) Eyes Eyelids: Yes eyelids normal Conjunctivae: conjunctivae normal Pupils: Equal, round and reactive pupils present EOM: EOMs intact bilaterally Neck Neck: Yes no lymphadenopathy and Yes supple Thyroid: Thyroid normal Resp Auscultation: clear to auscultation bilaterally, no rales and no wheezes Cardio Rate: regular rate Rhythm: regular rhythm Heart sounds: no murmurs GI Palpation (GI): Soft to palpation, nontender and No hepatosplenomegaly present Auscultation: normal bowel sounds General: Yes no CVA tenderness Back/Spine/Pelvis Back: no CVA tenderness Thoracic/Lumbar Spine: thoracic and lumbar spine normal to inspection Skin Lesions: no lesions Rashes: no rashes Neuro General: patient oriented x3, moves all extremities, no focal motor deficits and CN's II-XI intact bilaterally Cranial nerves: Yes Equal, round and reactive pupils present Cognition (Neuro): normal cognition Gait exam (Neuro): Normal gait present Extrem General: Yes no clubbing, cyanosis or edema Left upper extremity: shoulder/upper arm Details: tenderness Location: of the A- C joint; no swelling and elbow/forearm Details: tenderness Location: of the medial epicondyle; no swelling Office Procedures Flu Questionnaire Does the patient have a severe egg allergy?: No Does the patient have severe life threatening allergies?: No Does the patient have a fever or illness today?: No Has the patient ever had Guillain-Scroggins Syndrome?: No Has the patient ever had any past reaction to a flu shot?: No Immunizations flu vacc [id number] 6mos up(PF) 60 mcg(15 mcgx4)/0.5 mL IM syringe Performing Provider: Gorge Reynolds MD Performing Location: [facility] Administered by: Hillary Celeste on 03/26/23 09:21 Dose Route Admin Location Dispensed Lot Number Expiration Date [employer] Inspector 0.5 mL IM Left Deltoid 0.5 mL [id number] 11/23/23 68550-801-14 [employer] VIS Given Date VIS Provided VIS Publication Date 03/26/23 Single Vaccine 20 Eligibility Eligibility Date Funding Source Not [facility] Eligible 03/26/23 Private Results Reviewed Results Reviewed: Laboratory Tests 07/11/22 03/20/23 03/20/23 08:08 08:04 08:04 WBC 5.1 Hgb 14.9 Hct 42.7 Plt Count 242 Sodium 139 Potassium 4.0 Creatinine 0.77 Estimated GFR > 60 Fasting Glucose 98 Hemoglobin A1c % 5.3 Calcium 9.6 AST 18 ALT 18 Triglycerides 60 Cholesterol 168 LDL Cholesterol, Calc 97 HDL Cholesterol 59 Total PSA 0.69 25-OH Vitamin D Total 37.0 TSH 0.88 Ur Specific [place] Urine Protein Urine Glucose (UA) Urine Blood 03/20/23 08:07 WBC Hgb Hct Plt Count Sodium Potassium Creatinine Estimated GFR Fasting Glucose Hemoglobin A1c % Calcium AST ALT Triglycerides Cholesterol LDL Cholesterol, Calc HDL Cholesterol Total PSA 25-OH Vitamin D Total TSH Ur Specific [place] 1.015 Urine Protein Negative Urine Glucose (UA) Negative Urine Blood Trace H Assessment and Plan Assessment & Plan (1) Annual physical exam: Code(s): Z00.00 - Encounter for general adult medical examination without abnormal findings Plan: Results of his labs done last week reviewed and discussed with patient He had his screening colonoscopy done with Dr. Ervin in 12/2016 and is due for repeat colonoscopy in 10 years (12/2026) (2) Pure hypercholesterolemia: Code(s): E78.00 - Pure hypercholesterolemia, unspecified Plan: Reinforced low cholesterol diet Continue Atorvastatin 40 mg QD Will recheck his labs and fasting lipids in 4 months for follow up (3) Superficial gastritis without hemorrhage: Code(s): K29.30 - Chronic superficial gastritis without bleeding Qualifiers: Chronicity: unspecified Qualified Code(s): K29.30 - Chronic superficial gastritis without bleeding Plan: Dietary restrictions reinforced EGD done in 2019 revealed findings consistent with antral gastritis Continue Dexilant 60 mg QD? (taken in the evening for better efficacy) - has not had any flare up of his GI symptoms for months now Follow up with GI as scheduled (4) Impaired fasting glucose: Code(s): R73.01 - Impaired fasting glucose Plan: HgbA1c has remained normal at 5.3% on his labs done last week Reinforced low calorie diet/exercise as tolerated (5) Gallbladder polyp: Code(s): K82.4 - Cholesterolosis of gallbladder Plan: This was initially seen on abdominal US done at the ER in July 2021 when he presented there for abdominal pain Recommended follow up US in 6 months - US ordered but patient ended up getting an abdominal and pelvic CT when he presented to the ER in April 2022 for enterocolitis Abdominal and pelvic CT back then revealed that the the liver is normal in size, shape, and attenuation with no focal hepatic lesion or biliary ductal dilatation; the gallbladder is unremarkable with no evidence of radiopaque ga llstones, gallbladder wall thickening, or obvious pericholecystic inflammatory changes.? (6) Allergic rhinitis: Code(s): J30.9 - Allergic rhinitis, unspecified Qualifiers: Allergic rhinitis seasonality: unspecified Allergic rhinitis trigger: unspecified Qualified Code(s): J30.9 - Allergic rhinitis, unspecified Plan: Continue OTC Loratadine 10 mg QD PRN (7) Vitamin D deficiency: Code(s): E55.9 - Vitamin D deficiency, unspecified Plan: Continue Vitamin D3 1000 units QD (8) Left shoulder pain: Code(s): M25.512 - Pain in left shoulder Qualifiers: Chronicity: unspecified Qualified Code(s): M25.512 - Pain in left shoulder Plan: Is most likely due to rotator cuff tendinitis or AC joint arthritis Will send him for x-rays of the left shoulder REVA for further evaluation Will consider referring him to either physical therapy or orthopedics, depending on how his x-rays come out (9) Left elbow pain: Code(s): M25.522 - Pain in left elbow Plan: Will send him for left elbow x-rays for further evaluation - he most likely has medial epicondylitis based on his exam findings (10) Urinary frequency: Code(s): R35.0 - Frequency of micturition Plan: Most likely due to BPH; PSA was normal when last checked in June 2022 States that his urinary frequency and nocturia have improved a lot with Rx - continue Tamsulosin 0.4 mg Q HS Follow up with urology as scheduled (11) Onychomycosis: Code(s): B35.1 - Tinea unguium Plan: Continue Terbinafine 250 mg QD - started by podiatry a few months ago LFTs remained normal on his recent labs Follow up with podiatry as scheduled (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 Plan: Reinforced again that this is a benign condition but he should be watchful of any unusual skin lesions and have them evaluated REVA if he sees any lately Will continue to monitor this closely (13) Illiterate: Code(s): Z55.0 - Illiteracy and low-level literacy Plan: Patient's indicated today that patient is actually illiterate and cannot read or write States that they recently learned that with his condition (illiteracy) he can file for social security / disability benefits and wants to know how they should go about that and if his papers to fill out should come here Have advised them that typically, social security would want documentation which we do not have that his being illiterate is something that he's had for years and since we have no documentation at all regarding this until today, they will want some type of confirmatory evaluation regarding this Have advised them to try reaching out to neuropsychiatry practices in [place] to see who accepts his insurance and they can then call back for a referral once they have decided where he is going to get this assessment done (14) Overweight (BMI 25.0-29.9): Code(s): E66.3 - Overweight Plan: Reinforced diet/exercise as tolerated/lose weight Plan Per request, flu vaccine given today Follow up in 4 months Orders: Orders XR elbow LT min 3V Today M25.522 - Pain in left elbow Lipid Panel 4 Months E78.00 - Pure hypercholesterolemia, unspecified Influenza [id number] Immunization Today Z23 - Encounter for immunization XR shoulder LT min 2V Today M25.512 - Pain in left shoulder Complete Blood Count Auto Diff 4 Months I10 - Essential (primary) hypertension Comprehensive [place]. Panel Fast 4 Months E78.00 - Pure hypercholesterolemia, unspecified Coding Level of Care Code Est Pt Prev Care 40-64y(12081) Diagnoses Annual physical exam Z00.00 Pure hypercholesterolemia E78.00 Superficial gastritis without hemorrhage, unspecified chronicity K29.30 Chronicity: unspecified Impaired fasting glucose R73.01 Gallbladder polyp K82.4 Allergic rhinitis, unspecified seasonality, unspecified trigger J30.9 Allergic rhinitis seasonality: unspecified Allergic rhinitis trigger: unspecified Vitamin D deficiency E55.9 Left shoulder pain, unspecified chronicity M25.512 Chronicity: unspecified Left elbow pain M25.522 Urinary frequency R35.0 Onychomycosis B35.1 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 Illiterate Z55.0 Overweight (BMI 25.0-29.9) E66.3
== END 2023-03-26 10:10 | disposition home or self-care (01) ==
PROVIDERS: Visit Provider Internal Medicine
DX: Z23 Encounter for immunization (principal)
CPT/HCPCS: 90471; 90686; 99396

== ENCOUNTER 2023-03-27 08:59 | Outpatient (REF) | payer OTHER, SELFPAY ==
--- NOTE | ~2023-03-27 | XR_ITS ---
EXAMINATION: XR SHOULDER, LEFT CLINICAL INFORMATION: Pain in left shoulder COMPARISON: None available. TECHNIQUE: AP external rotation, Grashey, scapular Y, and axillary views of the left shoulder. FINDINGS: The bones are intact no fracture. Glenohumeral and acromioclavicular alignment is anatomic with normal joint space. Small marginal osteophyte extends off the inferior aspect of the humeral head. No abnormal soft tissue calcifications. XR/XR shoulder LT min 2V IMPRESSION: No significant bony abnormality.
--- NOTE | ~2023-03-27 | XR_ITS ---
EXAMINATION: XR ELBOW, LEFT CLINICAL INFORMATION: Pain in left elbow COMPARISON: None available. TECHNIQUE: AP, lateral, and oblique views of the left elbow. FINDINGS: The bones are intact. No fracture or joint effusion. Alignment is anatomic. Joint spaces are maintained. XR/XR elbow LT min 3V IMPRESSION: No bony abnormality.
== END 2023-03-27 09:00 | disposition home or self-care (01) ==
LOC: HO.XRAY 08:59
PROVIDERS: PCP Internal Medicine; Visit Provider Internal Medicine
DX: M25.512 Pain in left shoulder (principal); M25.522 Pain in left elbow
CPT/HCPCS: 73030; 73080

== ENCOUNTER 2023-07-22 06:57 | Outpatient (REF) | payer OTHER, SELFPAY ==
[2023-07-22 07:07] LABS: MANUAL DIFF FLAG NO
[2023-07-22 07:43] LABS: Basophils Percent Auto 0.5 % (0-2); Eosinophils Absolute Auto 0.1 X10*3/uL (0.0-0.4); Eosinophils Percent Auto 1.8 % (0-4); Hematocrit 45.1 % (42.0-52.0); Hemoglobin 15.5 g/dl (14.0-18.0); Imm Gran Abs Auto 0.02 X10*3/uL (0.00-0.03); Imm Gran Pct Auto 0.3 % (0.0-0.4); Lymphocytes Absolute Auto 1.9 X10*3/uL (1.2-4.9); Lymphocytes Percent Auto 31.7 % (20-40); Mean Corpuscular HGB Conc 34.4 g/dl (31.0-36.0); Mean Corpuscular Hemoglobin 32.3 pg (27.0-33.0); Mean Platelet Volume 9.3 fL (9.4-12.4); Monocytes Absolute Auto 0.7 X10*3/uL (0.1-1.2); Neutrophils Absolute Auto 3.3 x10*3/uL (2.0-8.3); Neutrophils Percent Auto 54.7 % (45-73); Platelet Count 256 X10*3/uL (160-400); Red Cell Distribution Width 11.8 % (11.0-16.0)
[2023-07-22 08:14] LABS: Alanine Aminotransferase 20 U/L (0-40); Albumin Level 4.6 g/dL (3.5-5.0); Alkaline Phosphatase 50 U/L (39-117); Anion Gap 10 (12-20); Aspartate Amino Transferase 18 U/L (5-37); Bilirubin Total 0.6 mg/dL (0.0-1.0); Blood Urea Nitrogen 11 mg/dL (9-16); Calcium 9.7 mg/dL (8.4-10.2); Carbon Dioxide 30 mmol/L (22-29); Chloride 103 mmol/L (96-108); Cholesterol 176 mg/dL (<200); Estimated Glomerular Filt Rate > 60; Glucose Fasting 98 mg/dL (60-99); HDL Cholesterol 63 mg/dL (>40); LDL Cholesterol Calculated 91 mg/dL (<100); Potassium 4.1 mmol/L (3.3-5.1); Sodium 139 mmol/L (135-145); Total Protein 7.9 g/dL (6.5-8.0); Triglycerides 111 mg/dL (<150)
[2023-07-22 08:40] LABS: Appearance Urine Clear; Color Urine Yellow; Glucose Urine UA Negative (Negative); Leukocyte Esterase Urine Negative (Negative); Nitrite Urine Negative (Negative); PH 8.5 (5.0-9.0); Specific Gravity - Urine 1.015 (1.005-1.025); Urine Blood Negative (Negative); Urine Ketones Negative (Negative); Urine Protein Negative (Neg-Trace)
== END 2023-07-22 06:58 | disposition home or self-care (01) ==
LOC: HO.LAB 06:57
PROVIDERS: PCP Internal Medicine; Visit Provider Internal Medicine
DX: R30.0 Dysuria (principal); E78.00 Pure hypercholesterolemia, unspecified; I10 Essential (primary) hypertension
CPT/HCPCS: 36415; 80053; 80061; 81003; 85025

== ENCOUNTER 2023-07-25 14:36 | Outpatient (AMB) | payer OTHER, SELFPAY ==
[2023-07-25 14:48] VITALS: BP 136/88; PULSE 73; O2SAT 98; BMI 28.3
--- NOTE | 2023-07-25 14:48 | A.OFFPC_ITS ---
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 by: Spouse Allergies No Known Allergies [No Known Allergies*] Allergy (Verified 07/25/23 15:10) Medication List - Last Reconciled 07/25/23 by Gorge Reynolds MD atorvastatin 40 mg PO BEDTIME cholecalciferol (vitamin D3) (Vitamin D3) 25 mcg PO DAILY Dexilant (dexlansoprazole) 60 mg PO BEDTIME NS tamsulosin 0.4 mg PO BEDTIME Tobacco use date assessed: 07/25/23 Dental Screening Dental Screen Date: 07/25/23 Did you have a dental visit in the last 12 months?: No Did you have a dental problem in the last 6 months where you did not have access to dental care?: No Was dental information given to patient?: Patient has dentist HPI hyperlipidemia, GERD/gastritis HPI Details Patient comes in today for his follow up visit States that he feels okay He denies any headaches or dizziness Denies any chest pains, no SOB No nausea/vomiting, no abdominal pain No change in bowel habits noted Needs his Tamsulosin Rx refilled Had his follow up labs done a few days ago - to discuss his results [facility] Medical History Nocturia Onychia and paronychia of finger GERD (gastroesophageal reflux disease) IBS (irritable bowel syndrome) Overweight (BMI 25.0-29.9) Microscopic hematuria Vitamin D deficiency Allergic rhinitis Impaired fasting glucose Superficial gastritis without hemorrhage Pure hypercholesterolemia Surgical History History of esophagogastroduodenoscopy (EGD) History of colonoscopy Family History Father Medical history unknown Mother Hypertension Maternal Aunt Cancer Maternal Uncle Cancer Social History Household Members: Family Housing: Apartment Do you presently have visiting nurse or other home services: No Alcohol intake: current Alcohol intake frequency: holidays/special occasions only Alcohol type: beer Patient Tobacco Use Status: Never used Tobacco e-Cigarette/Vaping Use: Never Used Second Hand Smoke Exposure: Yes service: No Current occupational status: unemployed Cognitive needs: No Hearing needs: No Vision needs: No Questionnaire PHQ-9 Over the last 2 weeks, how often have you been bothered by any of the following problems? 1. Little interest or pleasure in doing things: not at all 2. Feeling down, depressed, or hopeless: not at all 3. Trouble falling or staying asleep, or sleeping too much: not at all 4. Feeling tired or having little energy: not at all 5. Poor appetite or overeating: not at all 6. Feeling bad about yourself - or that you are a failure or have let yourself or your family down: not at all 7. Trouble concentrating on things, such as reading the newspaper or watching television: not at all 8. Moving or speaking so slowly that other people could have noticed. Or the opposite - being so fidgety or restless that you have been moving around a lot more than usual: not at all 9. Thoughts that you would be better off or of hurting yourself in some way: not at all Total score: 0 Depression Screening Interpretation: Negative Depression Screening Done: Yes 75361 - PHQ-9 Billing: Yes Source: Developed by Drs. Erik Gauthier, Asuncion Morfin, Milton Trammell and colleagues, with an educational hudson from [employer]. Thrive Questionnaire Date Thrive assessed: 07/25/23 I am a: Patient What is your living situation today?: I have a steady place to live Within the past 12 months, did the food you bought not last and you didn't have the money to get more?: Never true Within the past 12 months, did you worry whether your food would run out before you got money to buy more?: Never true Do you have trouble paying for medicines?: No Do you have trouble getting transportation to medical appointments?: No Do you have trouble paying your heating and electricity bill?: No Do you have trouble taking care of your child, family member or friend?: No Do you have trouble with day-to-day activities such as bathing, preparing meals, shopping, managing finances, etc.?: No Are you currently unemployed and looking for a job?: No Are you interested in more education?: No Please select the resources that you would like help with: None Currently or been in a relationship where the following occur: no concerns reported THRIVE Score: 0 AUDIT C Alcohol Use Questionnaire (AUDIT-C) 1. How often do you have a drink containing alcohol?: 2-4 times a month 2. How many drinks containing alcohol do you have on a typical day when you are drinking?: 10 or more (per pt about 12 beers and 2-3 of hard liquour) 3. How often do you have six or more drinks on one occasion?: Weekly Total Score: 9 Score Reviewed/Action Taken: Yes (counseled to cut back on his beer) GARRET-7 AMB Questionnaire GARRET-7 Date GARRET - 7 assessed: 03/26/23 Source: Developed by Drs. Erik Gauthier, Asuncion Morfin, Milton Trammell and colleagues, with an educational hudson from [employer]. Review of Systems Const Denies chills, Denies fatigue, Denies fever(s) and Denies headache(s) ENT Denies dysphagia, Denies dizziness, Denies otalgia, Denies headache(s), Denies neck pain, Denies odynophagia and Denies sore throat Card Denies chest pain, Denies palpitations and Denies dyspnea Resp Denies cough, Denies dyspnea and Denies wheezing GI Denies abdominal pain, Denies constipation, Denies dysphagia, Denies heartburn, Denies diarrhea, Denies nausea, Denies odynophagia and Denies vomiting Denies dysuria, Denies nocturia (improved with Rx), Denies urinary frequency (improved with Rx) and Denies urinary incontinence Musc Denies back pain, Denies arthralgias and Denies neck pain Skin/Breast Denies rash Neuro Denies dizziness and Denies headache(s) Endo Denies fatigue and Denies palpitations Aller/Immun Denies wheezing Physical exam (Primary Care) Vital Signs: Last Vital Signs Pulse 73 07/25/23 14:48 BP 136/88 07/25/23 14:48 Pulse Ox 98 07/25/23 14:48 Oxygen Delivery Method Room Air 07/25/23 14:48 BMI result Body Mass Index 28.3 Tobacco/Smoking Status: Tobacco use Status Tobacco use date assessed 07/25/23 07/25/23 15:00 Patient Tobacco Use Status Never used Tobacco 07/25/23 14:48 e-Cigarette/Vaping Use Never Used 07/25/23 14:48 PHQ-9: PHQ-9 Score PHQ-9: Total score 0 07/25/23 15:16 Depression Screening Interpretation: Negative Thrive Assessment: Date of Thrive Assessment Date Thrive assessed 07/25/23 07/25/23 15:16 Currently or been in a relationship where the following occur: no concerns reported Const General: no acute distress and alert HENMT Ears: TM's normal bilaterally and EAC's normal Throat: Yes posterior oropharynx normal and Yes tonsils normal (no TP congestion noted) Neck Neck: Yes no lymphadenopathy and Yes supple Thyroid: Thyroid normal Resp Auscultation: clear to auscultation bilaterally, no rales and no wheezes Cardio Rate: regular rate Rhythm: regular rhythm Heart sounds: no murmurs GI Palpation (GI): Soft to palpation and nontender Auscultation: normal bowel sounds General: Yes no CVA tenderness Back/Spine/Pelvis Back: no CVA tenderness Skin Rashes: no rashes Extrem General: Yes no clubbing, cyanosis or edema Results Reviewed Results Reviewed: Laboratory Tests 07/22/23 07/22/23 07:01 07:03 WBC 6.0 Hgb 15.5 Hct 45.1 Plt Count 256 Sodium 139 Potassium 4.1 Creatinine 0.77 Estimated GFR > 60 Fasting Glucose 98 Calcium 9.7 AST 18 ALT 20 Triglycerides 111 Cholesterol 176 LDL Cholesterol, Calc 91 HDL Cholesterol 63 Ur Specific [place] 1.015 Urine Protein Negative Urine Glucose (UA) Negative Urine Blood Negative Urine Nitrite Negative Ur Leukocyte Esterase Negative Assessment and Plan Assessment & Plan (1) Pure hypercholesterolemia: Code(s): E78.00 - Pure hypercholesterolemia, unspecified Plan: Results of his labs done a few days ago reviewed and discussed with patient Reinforced low cholesterol diet Continue Atorvastatin 40 mg QD Will recheck his labs and fasting lipids in 4 months for follow up (2) Superficial gastritis without hemorrhage: Code(s): K29.30 - Chronic superficial gastritis without bleeding Qualifiers: Chronicity: unspecified Qualified Code(s): K29.30 - Chronic superficial gastritis without bleeding Plan: Dietary restrictions reinforced EGD done in 2019 revealed findings consistent with antral gastritis Continue Dexilant 60 mg QD? (taken in the evening for better efficacy) - has not had any flare up of his GI symptoms for months now Follow up with GI as scheduled (3) Impaired fasting glucose: Code(s): R73.01 - Impaired fasting glucose Plan: FBS was normal at 98 mg/dl on his recent labs; his HgbA1c was normal at 5.3% when checked previously Reinforced low calorie diet/exercise as tolerated (4) Gallbladder polyp: Code(s): K82.4 - Cholesterolosis of gallbladder Plan: This was initially seen on abdominal US done at the ER in July 2021 when he presented there for abdominal pain Recommended follow up US in 6 months - US ordered but patient ended up getting an abdominal and pelvic CT when he presented to the ER in April 2022 for enterocolitis Abdominal and pelvic CT back then revealed that the the liver is normal in size, shape, and attenuation with no focal hepatic lesion or biliary ductal dilatation; the gallbladder is unremarkable with no evidence of radiopaque gallstones, gallbladder wall thickening, or obvious pericholecystic inflammatory changes No further follow up is needed unless patient develops any symptoms (5) Allergic rhinitis: Code(s): J30.9 - Allergic rhinitis, unspecified Qualifiers: Allergic rhinitis seasonality: unspecified Allergic rhinitis trigger: unspecified Qualified Code(s): J30.9 - Allergic rhinitis, unspecified Plan: Continue OTC Loratadine 10 mg QD PRN (6) Vitamin D deficiency: Code(s): E55.9 - Vitamin D deficiency, unspecified Plan: Continue Vitamin D3 1000 units QD (7) Urinary frequency: Code(s): R35.0 - Frequency of micturition Plan: Most likely due to BPH; PSA was normal when last checked in June 2022 States that his urinary frequency and nocturia have improved a lot with Rx - continue Tamsulosin 0.4 mg Q HS (Rx refilled) Follow up with urology as scheduled (8) Onychomycosis: Code(s): B35.1 - Tinea unguium Plan: S/P Tx with Terbinafine 250 mg QD Follow up with podiatry as scheduled (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 - Other nail disorders Plan: Reinforced again that this is a benign condition but he should be watchful of any unusual skin lesions and have them evaluated REVA if he sees any lately Will continue to monitor this closely (10) Alcohol use disorder: Code(s): F10.90 - Alcohol use, unspecified, uncomplicated Plan: Patient is counseled on the dangers of frequent and heavy alcohol use and is urged to cut back and quit (11) Illiterate: Code(s): Z55.0 - Illiteracy and low-level literacy Plan: Patient's indicated today that patient is actually illiterate and cannot read or write States that they recently learned that with his condition (illiteracy) he can file for social security / disability benefits and wants to know how they should go about that and if his papers to fill out should come here Have advised them that typically, social security would want documentation which we do not have that his being illiterate is something that he's had for years and since we have no documentation at all regarding this until today, they will want some type of confirmatory evaluation regarding this Have advised them to try reaching out to neuropsychiatry practices in [place] to see who accepts his insurance and they can then call back for a referral once they have decided where he is going to get this assessment done (12) Overweight (BMI 25.0-29.9): Code(s): E66.3 - Overweight Plan: Reinforced diet/exercise as tolerated/lose weight Plan Follow up in 4 months Orders: Orders Lipid Panel 4 Months E78.00 - Pure hypercholesterolemia, unspecified TSH reflex Free T4 4 Months E78.00 - Pure hypercholesterolemia, unspecified Prostate Specific Antigen 4 Months N40.0 - Benign prostatic hyperplasia without lower urinary tract symptoms Hemoglobin A1c 4 Months R73.01 - Impaired fasting glucose UA CC w/rflx Micro + Cult 4 Months R30.0 - Dysuria Vitamin B12 and Folate 4 Months E53.8 - Deficiency of other specified B group vitamins Complete Blood Count Auto Diff 4 Months D64.9 - Anemia, unspecified Comprehensive Antoine. Panel Fast 4 Months E78.00 - Pure hypercholesterolemia, unspecified Vitamin D 25-OH Total 4 Months E55.9 - Vitamin D deficiency, unspecified Medications: Changed From tamsulosin 0.4 mg PO BEDTIME N40.1 - Benign prostatic hyperplasia with lower urinary tract symptoms, R35.1 - Nocturia To tamsulosin 0.4 mg PO BEDTIME 90 caps 3RF 90 days N40.1 - Benign prostatic hyperplasia with lower urinary tract symptoms, R35.1 - Nocturia Coding Level of Care Code Est Pt Level 4 (20823) Diagnoses Pure hypercholesterolemia E78.00 Superficial gastritis without hemorrhage, unspecified chronicity K29.30 Chronicity: unspecified Impaired fasting glucose R73.01 Gallbladder polyp K82.4 Allergic rhinitis, unspecified seasonality, unspecified trigger J30.9 Allergic rhinitis seasonality: unspecified Allergic rhinitis trigger: unspecified Vitamin D deficiency E55.9 Urinary frequency R35.0 Onychomycosis B35.1 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 Alcohol use disorder F10.90 Illiterate Z55.0 Overweight (BMI 25.0-29.9) E66.3
== END 2023-07-25 15:23 | disposition home or self-care (01) ==
PROVIDERS: PCP Internal Medicine; Visit Provider Internal Medicine
DX: E78.00 Pure hypercholesterolemia, unspecified (principal); K29.30 Chronic superficial gastritis without bleeding; R73.01 Impaired fasting glucose; K82.4 Cholesterolosis of gallbladder; J30.9 Allergic rhinitis, unspecified; E55.9 Vitamin D deficiency, unspecified; R35.0 Frequency of micturition; B35.1 Tinea unguium; L60.8 Other nail disorders; F10.90 Alcohol use, unspecified, uncomplicated; Z55.0 Illiteracy and low-level literacy; E66.3 Overweight
CPT/HCPCS: 99214

== ENCOUNTER 2023-08-14 07:53 | Outpatient (AMB) | payer OTHER, SELFPAY ==
[2023-08-14 08:00] VITALS: BP 113/69; PULSE 74; BMI 27.9
--- NOTE | 2023-08-14 08:00 | MHC.OFFVIS ---
Intake Vital Signs 08/14/23 08:00 Height 5 ft 5 in Weight 167 lb 8.821 oz BMI 27.9 BP 113/69 Blood Pressure Location Lt brachial Position Sitting Pulse 74 Intake Visit Reasons: Gastroesophageal reflux disease (GERD) Intake Note: Kulwinder presents in the office as a new patient for GERD. CC: He states that every time he eats he gets nausea. No irregular bowel movements. In the morning his stomach feels like its hot. Allergies No Known Allergies [No Known Allergies*] Allergy (Verified 08/14/23 08:00) HPI Gastroesophageal reflux disease (GERD) HPI Details Assessment & Plan (1) Irritable bowel syndrome with diarrhea: ?Code(s): K58.0 - Irritable bowel syndrome with diarrhea ?Plan: [place] #[id number] He says he is feeling better now, but a couple of weeks ago she had periumbilical pain and called the office. He was advised to eat a bland diet to rest the gut, thinking it may be a gastroenteritis. He says that the Creon is causing him constipation. We will try decreasing the dose, but I wonder if this is causing the periumbilical abd pain. He stopped taking the 24,000 dose, but then he started having a lot of gasses. I explain that the Creon was for treating the gas, so stopping it likely caused the gasses and the pain. We will try restarting him on a lower dose. He also admits i've been eating a lot of things I shouldn't. He continues on his famotidine at bedtime with good control of his heartburn. ROV 6 weeks (2) GERD (gastroesophageal reflux disease): ?Code(s): K21.9 - Gastro-esophageal reflux disease without esophagitis ? ? ? Medications: New afqhfe-nmawgdsy-az ylase 3,000-9,500- 15,000 unit (Creo n) ?? do not excee d 10,000 unit/kg l ipase per 24 hrs 1 cap? PO QID 30 days 120 caps 6RF C K59.04 - Chronic i diopathic constipa tion ? Discontinued dosdpz-vpxyjgcn-dn ylase 24,000-76,00 0 -120,000 unit (C reon) ?? administe r with meals and/o r snacks ?? Discon tinued Reason:? Do ctor's Order 1 cap? 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 Manager Licensing states pt still having burning epigastric pain, nausea, and reflux . Reports given zofran in ER. I spoke with pt caregiver as pt speaks Kosovan. Caregiver reports pt does not have fever, diarrhea, constipation, body aches, just epigastric pain which is making it difficult to eat . Pt admits to not takeing famotadine, or dexilant at HS for several weeks. I reviewed action of these medications, instructed pt to take on empty stomach at bedtime, and zofran will help nausea, also encouraged a bland diet for a few days, avoid chocolate, mint, fried foods, spicy foods, acid foods, stay elevated after eating and not to eat 4 hours before bedtime. Asked pt to call back in a few days to F/U, caregiver agrees. August, do you think some Carafate could help pt? Please advise, thanks, Ceil ? pt has an appointment to see you in 2 weeks TODAYS VISIT Kosovan # interprets per patient request THIS PATIENT HAS BEEN LOST FOLLOW-UP since 08/2021. He tells me that every time he eats he has nausea, which is worse in the am and in the am he will spit up a lot of phlem that he feels is coming up from his stomach. He also feels that he needs to go back on his creon that I had prescribed him prior as he feels this helped. He continues on his Dexilant which he is taking qam, and I will add some famotidne qhs to see if this is helpful. Bowels are moving well no CIC or diarrhea, no bloating. He is a bit unclear as to whether his stomach is improved after the morning episodes of nausea. Since initially he reports he has nausea after every meal but then he says it is better later in the day. He denies any new medications or new medical conditions since I last saw him. Return office visit in 6 weeks to evaluate his response. [facility] Medical History (Updated 08/14/23 @ 08:09 by DONYA Morris) Annual physical exam COVID-19 Nocturia Onychia and paronychia of finger GERD (gastroesophageal reflux disease) IBS (irritable bowel syndrome) Overweight (BMI 25.0-29.9) Microscopic hematuria Vitamin D deficiency Allergic rhinitis Impaired fasting glucose Superficial gastritis without hemorrhage Pure hypercholesterolemia Surgical History History of esophagogastroduodenoscopy (EGD) History of colonoscopy Family History Father Medical history unknown Mother Hypertension Maternal Aunt Cancer Maternal Uncle Cancer Social History Household Members: Family Housing: Apartment Do you presently have visiting nurse or other home services: No Alcohol intake: current Alcohol intake frequency: holidays/special occasions only Alcohol type: beer Patient Tobacco Use Status: Never used Tobacco e-Cigarette/Vaping Use: Never Used Second Hand Smoke Exposure: Yes service: No Current occupational status: unemployed Cognitive needs: No Hearing needs: No Vision needs: No Review of Systems Const Denies fatigue, Denies fever(s), Denies night sweats, Denies poor appetite and Denies weight loss ENT Reports Normal hearing present, Denies dental pain, Denies dysphagia, Denies hearing loss, Denies mouth pain, Denies odynophagia, Denies throat swelling, Denies tongue swelling and Reports other (Dentition adequate) Card Reports no additional complaints Resp Reports no additional complaints GI Details: Reports abdominal pain (periumbilica), Denies melena, Denies bloating, Denies hematochezia, Denies constipation, Denies GI cramping, Denies dysphagia, Denies excessive flatus, Denies early satiety, Reports heartburn, Denies diarrhea, Reports nausea, Denies odynophagia, Denies vomiting and Denies hematemesis Skin/Breast Denies pruritus, Denies lesions, Denies rash and Denies jaundice Neuro Reports Normal hearing present and Denies Abnormal speech present Endo Denies fatigue Aller/Immun Denies throat swelling and Denies tongue swelling Physical Exam Vital Signs: Last Vital Signs Pulse 74 08/14/23 08:00 BP 113/69 08/14/23 08:00 BMI result Body Mass Index 27.9 Const General: cooperative, no acute distress, well developed and well groomed Nutritional Appearance: well nourished and overweight Orientation/consciousness: oriented to person, oriented to place and oriented to time Limitations: language barrier HEENT Head: Yes normocephalic and Yes atraumatic Eyes General: appearance normal, both eyes and all related structures Pupils: Equal, round and reactive pupils present Neck Neck: Yes normal visual inspection and Yes no lymphadenopathy Thyroid: Thyroid normal Resp Effort & Inspection: normal respiratory effort and able to speak in complete sentences Auscultation: clear to auscultation bilaterally Cardio Rate: regular rate Rhythm: regular rhythm Heart sounds: Normal, physiologic split S2 sound present Peripheral pulses: radial pulses present and posterior tibial pulses present GI Inspection: No distended, No Abdominal panniculus present and Yes obesity Palpation (GI): Soft to palpation, nontender, no guarding, not rigid and No hepatosplenomegaly present Percussion: Yes normal to percussion Auscultation: normal bowel sounds Rectal Exam - Male: Yes deferred Skin General skin exam: no rashes or lesions noted, turgor normal, skin not dry, no jaundice, No spider nevi and no striae Rashes: no rashes Nails: normal Neuro General: oriented to person, oriented to place and oriented to time Cranial nerves: Yes Equal, round and reactive pupils present and Yes Normal hearing present Speech: No Abnormal speech present Extrem General: Yes normal to inspection, No clubbing, No cyanosis and No edema Psych Appearance: grossly normal and well kempt Mental Status: mental status grossly normal Speech and movement: Normal speech and movement present Affect: normal affect Attitude: cooperative Thought process: Normal thought process present and not confabulating Thought content: Normal thought content present Insight: Limited insight present (Psych) Judgement: Limited judgement present (Psych) Assessment & Plan Assessment & Plan (1) Irritable bowel syndrome with diarrhea: Code(s): K58.0 - Irritable bowel syndrome with diarrhea (2) Superficial gastritis without hemorrhage: Code(s): K29.30 - Chronic superficial gastritis without bleeding Qualifiers: Chronicity: unspecified Qualified Code(s): K29.30 - Chronic superficial gastritis without bleeding (3) Illiterate: Code(s): Z55.0 - Illiteracy and low-level literacy (4) Alcohol use disorder: Code(s): F10.90 - Alcohol use, unspecified, uncomplicated Plan [place] # interprets per patient request THIS PATIENT HAS BEEN LOST FOLLOW-UP since 08/2021. He tells me that every time he eats he has nausea, which is worse in the am and in the am he will spit up a lot of phlem that he feels is coming up from his stomach. He also feels that he needs to go back on his creon that I had prescribed him prior as he feels this helped. He continues on his Dexilant which he is taking qam, and I will add some famotidne qhs to see if this is helpful. Bowels are moving well no CIC or diarrhea, no bloating. He is a bit unclear as to whether his stomach is improved after the morning episodes of nausea. Since initially he reports he has nausea after every meal but then he says it is better later in the day. He denies any new medications or new medical conditions since I last saw him. Return office visit in 6 weeks to evaluate his response. Medications: New bfntzl-rrfnhkwf-hmmkwrc 24,000-76,000 -120,000 unit (Creon) administer with meals and/or snacks 2 caps PO BID 30 days 120 caps 6RF K58.9 - Irritable bowel syndrome without diarrhea famotidine (Pepcid) 40 mg PO BEDTIME 30 tabs 6RF K29.30 - Chronic superficial gastritis without bleeding Changed From Dexilant (dexlansoprazole) 60 mg PO BEDTIME 30 caps 6RF NS To Dexilant (dexlansoprazole) 60 mg PO QAM 30 caps 6RF NS Coding Level of Care Code Est Pt Level 3 (91259) Diagnoses Irritable bowel syndrome with diarrhea K58.0 Superficial gastritis without hemorrhage, unspecified chronicity K29.30 Chronicity: unspecified Illiterate Z55.0 Alcohol use disorder F10.90
== END 2023-08-14 09:28 | disposition home or self-care (01) ==
PROVIDERS: PCP Internal Medicine; Visit Provider Nurse Practitioner
DX: K58.0 Irritable bowel syndrome with diarrhea (principal); K29.30 Chronic superficial gastritis without bleeding; Z55.0 Illiteracy and low-level literacy; F10.90 Alcohol use, unspecified, uncomplicated
CPT/HCPCS: 99213

== ENCOUNTER → 2023-08-14 07:53 | Outpatient (BNVA) | payer OTHER, SELFPAY | PROVIDERS: PCP Internal Medicine; Visit Provider Nurse Practitioner | DX: K21.9 Gastro-esophageal reflux disease without esophagitis (principal); K58.0 Irritable bowel syndrome with diarrhea; K29.30 Chronic superficial gastritis without bleeding; F10.90 Alcohol use, unspecified, uncomplicated | CPT/HCPCS: 99212 ==

== ENCOUNTER 2023-11-04 09:31 | Outpatient (AMB) | payer OTHER, SELFPAY ==
--- NOTE | 2023-11-04 09:33 | A.OFFVIS_ITS ---
Vital Signs 11/04/23 09:43 Height 5 ft 5 in Weight 168 lb 6.931 oz BMI 28.0 BP 118/75 Blood Pressure Location Lt brachial Position Sitting Pulse 66 Intake Visit Reasons: 6 weeks Gerd and nausea with eating Intake Note: Kulwinder returns in follow up of nausea. CC: Patient states that he is doing well but had to stop taking the Famotidine at night d/t nausea. Denies having any other GI symptoms today. Corrosion Control Specialist Required: Yes Corrosion Control Specialist Name: Accompanied by: Allergies No Known Allergies [No Known Allergies*] Allergy (Verified 11/04/23 09:43) HPI HPI 6 weeks Gerd and nausea with eating: Details: Assessment & Plan (1) Irritable bowel syndrome with diarrhea: Code(s): K58.0 - Irritable bowel syndrome with diarrhea (2) Superficial gastritis without hemorrhage: Code(s): K29.30 - Chronic superficial gastritis without bleeding Qualifiers: Chronicity: unspecified Qualified Code(s): K29.30 - Chronic superficial gastritis without bleeding (3) Illiterate: Code(s): Z55.0 - Illiteracy and low-level literacy (4) Alcohol use disorder: Code(s): F10.90 - Alcohol use, unspecified, uncomplicated Plan Greek # interprets per patient request THIS PATIENT HAS BEEN LOST FOLLOW-UP since 08/2021. He tells me that every time he eats he has nausea, which is worse in the am and in the am he will spit up a lot of phlem that he feels is coming up from his stomach. He also feels that he needs to go back on his creon that I had prescribed him prior as he feels this helped. He continues on his Dexilant which he is taking qam, and I will add some famotidne qhs to see if this is helpful. Bowels are moving well no CIC or diarrhea, no bloating. He is a bit unclear as to whether his stomach is improved after the morning episodes of nausea. Since initially he reports he has nausea after every meal but then he says it is better later in the day. He denies any new medications or new medical conditions since I last saw him. Return office visit in 6 weeks to evaluate his response. Medications: New [id number]-[id number] 24,000-76,000 -120,000 unit (Creon) administer with meals and/or snacks 2 caps PO BID 30 days 120 caps 6RF K58.9 - Irritable bowel syndrome without diarrhea famotidine (Pepcid) 40 mg PO BEDTIME 30 tabs 6RF K29.30 - Chronic superficial gastritis without bleeding Changed From Dexilant (dexlansoprazole) 60 mg PO BEDTIME 30 caps 6RF NS To Dexilant (dexlansoprazole) 60 mg PO QAM 30 caps 6RF NS CORRESPONDENCE TODAYS VISIT Greek # translates per pt request. He has the creon and it is helping with the bloating and he is happy with this. He stopped taking the famotidine r/t nausea. He continues on the dexilant. He has been having some RB on the TT with some itching and rectal irritation. This is worse when he drinks ETOH. No CIC or diarrhea. I advise to stop ETOH and will give proctosol cream and discuss Calmoseptine. Last scope [address] Ervin and was neg exam. rOV 6 mos. PFS Medical History Annual physical exam COVID-19 Nocturia Onychia and paronychia of finger GERD (gastroesophageal reflux disease) IBS (irritable bowel syndrome) Overweight (BMI 25.0-29.9) Microscopic hematuria Vitamin D deficiency Allergic rhinitis Impaired fasting glucose Superficial gastritis without hemorrhage Pure hypercholesterolemia Surgical History History of esophagogastroduodenoscopy (EGD) History of colonoscopy Family History Father Medical history unknown Mother Hypertension Maternal Aunt Cancer Maternal Uncle Cancer Social History Household Members: Family Housing: Apartment Do you presently have visiting nurse or other home services: No Alcohol intake: current Alcohol intake frequency: holidays/special occasions only Alcohol type: beer Patient Tobacco Use Status: Never used Tobacco e-Cigarette/Vaping Use: Never Used Second Hand Smoke Exposure: Yes service: No Current occupational status: unemployed Cognitive needs: No Hearing needs: No Vision needs: No Review of Systems Const Denies fatigue, Denies fever(s), Denies night sweats, Denies poor appetite and Denies weight loss ENT Reports Normal hearing present, Denies dental pain, Denies dysphagia, Denies hearing loss, Denies mouth pain, Denies odynophagia, Denies throat swelling, Denies tongue swelling and Reports other (Dentition adequate) Card Reports no additional complaints Resp Reports no additional complaints GI Details: Denies abdominal pain, Denies melena, Denies bloating, Reports hematochezia, Denies constipation, Denies GI cramping, Denies dysphagia, Denies excessive flatus, Denies early satiety, Reports heartburn, Denies diarrhea, Denies nausea, Denies odynophagia, Denies vomiting and Denies hematemesis Skin/Breast Denies pruritus, Denies lesions, Denies rash and Denies jaundice Neuro Reports Normal hearing present and Denies Abnormal speech present Endo Denies fatigue Aller/Immun Denies throat swelling and Denies tongue swelling Physical Exam Vital Signs: Last Vital Signs Pulse 66 11/04/23 09:43 BP 118/75 11/04/23 09:43 BMI result Body Mass Index 28.0 Const General: cooperative, no acute distress, well developed and well groomed Nutritional Appearance: average body habitus and well nourished Orientation/consciousness: oriented to person, oriented to place and oriented to time Limitations: language barrier HEENT Head: Yes normocephalic and Yes atraumatic Eyes General: appearance normal, both eyes and all related structures Pupils: Equal, round and reactive pupils present Neck Neck: Yes normal visual inspection and Yes no lymphadenopathy Thyroid: Thyroid normal Resp Effort & Inspection: normal respiratory effort and able to speak in complete sentences Auscultation: clear to auscultation bilaterally Cardio Rate: regular rate Rhythm: regular rhythm Heart sounds: Normal, physiologic split S2 sound present Peripheral pulses: radial pulses present and posterior tibial pulses present GI Inspection: No distended and No Abdominal panniculus present Palpation (GI): Soft to palpation, nontender, no guarding, not rigid and No hepatosplenomegaly present Percussion: Yes normal to percussion Auscultation: normal bowel sounds Rectal Exam - Male: Yes deferred Skin General skin exam: no rashes or lesions noted, turgor normal, skin not dry, no jaundice, No spider nevi and no striae Rashes: no rashes Nails: normal Neuro General: oriented to person, oriented to place and oriented to time Cranial nerves: Yes Equal, round and reactive pupils present and Yes Normal hearing present Speech: No Abnormal speech present Extrem General: Yes normal to inspection, No clubbing, No cyanosis and No edema Psych Appearance: grossly normal and well kempt Mental Status: mental status grossly normal Speech and movement: Normal speech and movement present Affect: normal affect Attitude: cooperative Thought process: Normal thought process present and not confabulating Thought content: Normal thought content present Insight: Limited insight present (Psych) Judgement: Limited judgement present (Psych) Assessment & Plan Assessment & Plan (1) Irritable bowel syndrome with diarrhea: Code(s): K58.0 - Irritable bowel syndrome with diarrhea Category: Medical (2) Illiterate: Code(s): Z55.0 - Illiteracy and low-level literacy Category: Social Hx (3) Alcohol use disorder: Code(s): F10.90 - Alcohol use, unspecified, uncomplicated Category: Medical Plan Greek # translates per pt request. He has the creon and it is helping with the bloating and he is happy with this. He stopped taking the famotidine r/t nausea. He continues on the dexilant. He has been having some RB on the TT with some itching and rectal irritation. This is worse when he drinks ETOH. No CIC or diarrhea. I advise to stop ETOH and will give proctosol cream and discuss Calmoseptine. Last scope [address] Ervin and was neg exam. rOV 6 mos. Medications: New hydrocortisone 2.5% (Proctosol HC) BE SURE TO INCLUDE RECTAL APPICATOR!! 1 appl DE BID 30 grams 6RF hemorrhoids K64.9 - Unspecified hemorrhoids Refilled hohgkj-ulqkrsfx-zdcmqqv 24,000-76,000 -120,000 unit (Creon) administer with meals and/or snacks 2 caps PO BID 120 caps 6RF 30 days K58.9 - Irritable bowel syndrome without diarrhea Dexilant (dexlansoprazole) 60 mg PO QAM 30 caps 6RF NS On Hold famotidine (Pepcid) Hold Comment: nausea 40 mg PO BEDTIME 30 tabs 6RF K29.30 - Chronic superficial gastritis without bleeding Coding Level of Care Code Est Pt Level 3 (78579) Diagnoses Irritable bowel syndrome with diarrhea K58.0 Illiterate Z55.0 Alcohol use disorder F10.90
[2023-11-04 09:43] VITALS: BP 118/75; PULSE 66; BMI 28.0
== END 2023-11-04 10:00 | disposition home or self-care (01) ==
PROVIDERS: PCP Internal Medicine; Visit Provider Nurse Practitioner
DX: K58.0 Irritable bowel syndrome with diarrhea (principal); Z55.0 Illiteracy and low-level literacy; F10.90 Alcohol use, unspecified, uncomplicated
CPT/HCPCS: 99213

== ENCOUNTER → 2023-11-04 09:31 | Outpatient (BNVA) | payer OTHER, SELFPAY | PROVIDERS: PCP Internal Medicine; Visit Provider Nurse Practitioner | DX: K58.0 Irritable bowel syndrome with diarrhea (principal); K29.30 Chronic superficial gastritis without bleeding; F10.20 Alcohol dependence, uncomplicated; Z55.0 Illiteracy and low-level literacy | CPT/HCPCS: 99212 ==

== ENCOUNTER 2023-11-10 14:49 | Outpatient (AMB) | payer OTHER, SELFPAY ==
--- NOTE | 2023-11-10 15:20 | MHC.OFFVIS ---
Vital Signs 11/10/23 15:21 Height 5 ft 5 in Weight 167 lb 2 oz BMI 27.8 BP 122/68 Blood Pressure Location Rt brachial Position Sitting Respiration 16 Pulse 73 Pulse Source Pulse Oximeter Pulse Oximetry (%) 97 Oxygen Delivery Method Room Air Intake Visit Reasons: INP-Sleep apnea, unspecified Intake Note: Pt presents to the office for new pt evaluation for sleep disturbance.He reports he is constantly dreaming and acting out his dreams. He denies snoring or having trouble falling or staying asleep. He c/o restless legs. Flight Follower Required: No Allergies No Known Allergies [No Known Allergies*] Allergy (Verified 11/10/23 15:21) Medication List - Last Reconciled 11/10/23 by Jennifer Sandoval MD atorvastatin 40 mg PO BEDTIME cholecalciferol (vitamin D3) (Vitamin D3) 25 mcg PO DAILY Dexilant (dexlansoprazole) 60 mg PO QAM NS famotidine (Pepcid) 40 mg PO BEDTIME hydrocortisone 2.5% (Proctosol HC) 1 appl HI BID [id number]-xljbemzm-veauogm 24,000-76,000 -120,000 unit (Creon) 2 caps PO BID 30 days tamsulosin 0.4 mg PO BEDTIME 90 days HPI Comments Details: 58y/o male comes for sleep evaluation . Main complaints-snoring, vivid dreams , hypersomnia Sleep questionnaire- Difficulty falling asleep-yes Difficulty staying asleep-yes Number of arousals-4 Snoring-yes Witnessed apneas-yes Gasping arousals-yes Nocturia-yes GERD-yes Vivid dreams-yes Acting out dreams -no Abnormal behavior in sleep-no ABnormal movements in sleep-no Morning headaches-no Excessive daytime sleepiness-yes Daytime naps- no restless legs- yes Hallucinations- no sleep paralysis- no Drop attacks- no Sleep study-/no PFSH Medical History (Updated 11/10/23 @ 15:43 by Jennifer Sandoval MD) Hypersomnia Snoring Annual physical exam COVID-19 Nocturia Onychia and paronychia of finger GERD (gastroesophageal reflux disease) IBS (irritable bowel syndrome) Overweight (BMI 25.0-29.9) Microscopic hematuria Vitamin D deficiency Allergic rhinitis Impaired fasting glucose Superficial gastritis without hemorrhage Pure hypercholesterolemia Surgical History History of esophagogastroduodenoscopy (EGD) History of colonoscopy Family History Father Medical history unknown Mother Hypertension Maternal Aunt Cancer Maternal Uncle Cancer Social History Household Members: Family Housing: Apartment Do you presently have visiting nurse or other home services: No Alcohol intake: current Alcohol intake frequency: holidays/special occasions only Alcohol type: beer Patient Tobacco Use Status: Never used Tobacco e-Cigarette/Vaping Use: Never Used Second Hand Smoke Exposure: Yes service: No Current occupational status: unemployed Cognitive needs: No Hearing needs: No Vision needs: No Physical Exam Vital Signs: Last Vital Signs Pulse 73 11/10/23 15:21 Resp 16 11/10/23 15:21 BP 122/68 11/10/23 15:21 Pulse Ox 97 11/10/23 15:21 Oxygen Delivery Method Room Air 11/10/23 15:21 BMI result Body Mass Index 27.8 Const General: cooperative, healthy appearing and comfortable Nutritional Appearance: average body habitus Orientation/consciousness: patient oriented x3 Eyes Pupils: Equal, round and reactive pupils present Neuro Other: Mallampatti grade 4 General: patient oriented x3, tone normal, moves all extremities and no focal motor deficits Cranial nerves: Yes Equal, round and reactive pupils present, Yes Bilaterally intact EOM present, Yes Nystagmus not present, Yes Normal facial strength present, Yes Midline tongue present and Yes Symmetric palate elevation present Cognition (Neuro): normal cognition Gait exam (Neuro): Normal gait present Motor exam (neuro): 5/5 motor strength present throughout and Normal motor muscle tone present throughout Deep tendon reflexes (DTR's): Right triceps reflex intensity grade: 1+, Left triceps reflex intensity grade: 1+, Rt Biceps (C5, C6): 1+, Left biceps reflex intensity grade: 1+, Right brachioradialis reflex intensity grade: 1+, Left brachioradialis reflex intensity grade: 1+, Right patellar reflex intensity grade: 1+ and Left patellar reflex intensity grade: 1+ Coordination: [id number] test normal Assessment & Plan Assessment & Plan (1) Snoring: Code(s): R06.83 - Snoring Category: Medical (2) Hypersomnia: Code(s): G47.10 - Hypersomnia, unspecified Category: Medical (3) Sleep disorder breathing: Code(s): G47.30 - Sleep apnea, unspecified Category: Medical Plan Home sleep study to r/o sleep apnea will consider in lab sleep study if HST is inconclusive Orders: Orders RT home sleep study Today G47.10 - Hypersomnia, unspecified, R06.83 - Snoring Coding Level of Care Code New Pt Level 4 (10954) Diagnoses Snoring R06.83 Hypersomnia G47.10 Sleep disorder breathing G47.30
[2023-11-10 15:21] VITALS: BP 122/68; PULSE 73; RESP 16; O2SAT 97; BMI 27.8
== END 2023-11-10 15:41 | disposition home or self-care (01) ==
PROVIDERS: PCP Internal Medicine; Visit Provider Psychiatry & Neurology Neurology
DX: R06.83 Snoring (principal); G47.10 Hypersomnia, unspecified; G47.30 Sleep apnea, unspecified
CPT/HCPCS: 99204

== ENCOUNTER → 2023-11-10 14:49 | Outpatient (BNVA) | payer OTHER, SELFPAY | PROVIDERS: PCP Internal Medicine; Visit Provider Psychiatry & Neurology Neurology | DX: R06.83 Snoring (principal); G47.10 Hypersomnia, unspecified; G47.30 Sleep apnea, unspecified | CPT/HCPCS: 99202 ==

== ENCOUNTER 2023-12-04 07:30 | Outpatient (REF) | payer OTHER, SELFPAY ==
[2023-12-04 07:39] LABS: MANUAL DIFF FLAG NO
[2023-12-04 08:10] LABS: Basophils Percent Auto 0.6 % (0-2); Eosinophils Absolute Auto 0.1 X10*3/uL (0.0-0.4); Eosinophils Percent Auto 2.2 % (0-4); Hematocrit 44.4 % (42.0-52.0); Hemoglobin 15.2 g/dl (14.0-18.0); Imm Gran Abs Auto 0.01 X10*3/uL (0.00-0.03); Imm Gran Pct Auto 0.2 % (0.0-0.4); Lymphocytes Absolute Auto 1.8 X10*3/uL (1.2-4.9); Lymphocytes Percent Auto 33.6 % (20-40); Mean Corpuscular HGB Conc 34.2 g/dl (31.0-36.0); Mean Corpuscular Hemoglobin 32.5 pg (27.0-33.0); Mean Corpuscular Volume 94.9 fL (80.0-98.0); Mean Platelet Volume 9.7 fL (9.4-12.4); Monocytes Absolute Auto 0.7 X10*3/uL (0.1-1.2); Monocytes Percent Auto 13.2 % (2-11); Neutrophils Absolute Auto 2.7 x10*3/uL (2.0-8.3); Neutrophils Percent Auto 50.2 % (45-73); Platelet Count 248 X10*3/uL (160-400); Red Blood Count 4.68 X10*6/uL (4.60-5.80); Red Cell Distribution Width 11.9 % (11.0-16.0); White Blood Count 5.4 X10*3/uL (4.8-10.8)
[2023-12-04 08:18] LABS: Estimated Average Glucose 108 mg/dL; Hemoglobin A1c % 5.4 % (<6.0)
[2023-12-04 08:24] LABS: Appearance Urine Clear; Color Urine Yellow; Glucose Urine UA Negative (Negative); Leukocyte Esterase Urine Negative (Negative); Nitrite Urine Negative (Negative); Specific Gravity - Urine 1.015 (1.005-1.025); Urine Blood Negative (Negative); Urine Ketones Negative (Negative); Urine Protein Negative (Neg-Trace)
[2023-12-04 08:44] LABS: Alanine Aminotransferase 21 U/L (0-40); Albumin Level 4.6 g/dL (3.5-5.0); Alkaline Phosphatase 52 U/L (39-117); Anion Gap 12 (12-20); Aspartate Amino Transferase 22 U/L (5-37); Bilirubin Total 0.4 mg/dL (0.0-1.0); Blood Urea Nitrogen 12 mg/dL (9-16); Calcium 10.1 mg/dL (8.4-10.2); Carbon Dioxide 27 mmol/L (22-29); Chloride 104 mmol/L (96-108); Cholesterol 190 mg/dL (<200); Estimated Glomerular Filt Rate > 60; Glucose Fasting 106 mg/dL (60-99); HDL Cholesterol 60 mg/dL (>40); LDL Cholesterol Calculated 106 mg/dL (<100); Potassium 5.2 mmol/L (3.3-5.1); Sodium 138 mmol/L (135-145); Triglycerides 121 mg/dL (<150)
[2023-12-04 09:02] LABS: TSH reflex Free T4 0.99 uIU/mL (0.32-4.0); Vitamin D 25-OH Total 34.4 ng/mL (>30)
[2023-12-04 09:14] LABS: Folate 9.5 ng/mL (> or = 4.0); Vitamin B12 363 pg/mL (200-900)
[2023-12-04 11:04] LABS: Prostate Specific Antigen 0.75 ng/mL (<0.05-4.0)
== END 2023-12-04 07:31 | disposition home or self-care (01) ==
LOC: HO.LAB 07:30
PROVIDERS: PCP Internal Medicine; Visit Provider Internal Medicine
DX: E78.00 Pure hypercholesterolemia, unspecified (principal); E55.9 Vitamin D deficiency, unspecified; E53.8 Deficiency of other specified B group vitamins; R30.0 Dysuria; N40.0 Benign prostatic hyperplasia without lower urinary tract symptoms; R73.01 Impaired fasting glucose; D64.9 Anemia, unspecified
CPT/HCPCS: 36415; 80053; 80061; 81003; 82306; 82607; 82746; 83036; 84153; 84443; 85025

== ENCOUNTER → 2023-12-16 07:49 | Outpatient (REF) | payer OTHER, SELFPAY | LOC: HO.SL 07:49 | PROVIDERS: Visit Provider Psychiatry & Neurology Neurology | DX: Z13.89 Encounter for screening for other disorder (principal) ==

== ENCOUNTER 2024-02-26 07:39 | Outpatient (REF) | payer OTHER, SELFPAY | END 2024-02-26 07:40 | disposition home or self-care (01) | LOC: HO.LAB 07:39 | PROVIDERS: PCP Internal Medicine; Visit Provider Internal Medicine | DX: Z13.89 Encounter for screening for other disorder (principal) ==

== ENCOUNTER 2024-02-27 07:46 | Outpatient (REF) | payer OTHER, SELFPAY ==
[2024-02-27 07:58] LABS: MANUAL DIFF FLAG NO
[2024-02-27 08:10] LABS: Basophils Percent Auto 0.7 % (0-2); Eosinophils Absolute Auto 0.1 X10*3/uL (0.0-0.4); Eosinophils Percent Auto 1.2 % (0-4); Hematocrit 41.4 % (42.0-52.0); Hemoglobin 14.6 g/dl (14.0-18.0); Imm Gran Abs Auto 0.02 X10*3/uL (0.00-0.03); Imm Gran Pct Auto 0.3 % (0.0-0.4); Lymphocytes Absolute Auto 1.8 X10*3/uL (1.2-4.9); Lymphocytes Percent Auto 29.6 % (20-40); Mean Corpuscular HGB Conc 35.3 g/dl (31.0-36.0); Mean Corpuscular Hemoglobin 32.5 pg (27.0-33.0); Mean Corpuscular Volume 92.2 fL (80.0-98.0); Mean Platelet Volume 8.9 fL (9.4-12.4); Monocytes Absolute Auto 0.9 X10*3/uL (0.1-1.2); Monocytes Percent Auto 14.1 % (2-11); Neutrophils Absolute Auto 3.3 x10*3/uL (2.0-8.3); Neutrophils Percent Auto 54.1 % (45-73); Platelet Count 271 X10*3/uL (160-400); Red Blood Count 4.49 X10*6/uL (4.60-5.80); Red Cell Distribution Width 11.7 % (11.0-16.0); White Blood Count 6.1 X10*3/uL (4.8-10.8)
[2024-02-27 08:13] LABS: Appearance Urine Clear; Color Urine Yellow; Glucose Urine UA Negative (Negative); Leukocyte Esterase Urine Negative (Negative); Nitrite Urine Negative (Negative); PH 7.5 (5.0-9.0); Specific Gravity - Urine 1.015 (1.005-1.025); UMIC TRIGGER UACC YES; Urine Blood Trace (Negative); Urine Ketones Negative (Negative); Urine Protein Negative (Neg-Trace)
[2024-02-27 08:16] LABS: Bacteria Urine None Seen (None Seen); Hyaline Casts Urine 0-2 /LPF (0-2); Squamous Epithelial Cell Urine 0-2 /HPF (0-2); WBC Urine 0-5 /HPF (0-5)
[2024-02-27 08:49] LABS: Alanine Aminotransferase 24 U/L (0-40); Albumin Level 4.9 g/dL (3.5-5.0); Alkaline Phosphatase 53 U/L (39-117); Anion Gap 11 (12-20); Aspartate Amino Transferase 19 U/L (5-37); Bilirubin Total 0.3 mg/dL (0.0-1.0); Blood Urea Nitrogen 11 mg/dL (9-16); Carbon Dioxide 28 mmol/L (22-29); Chloride 105 mmol/L (96-108); Cholesterol 195 mg/dL (<200); Estimated Glomerular Filt Rate > 60; Glucose Fasting 90 mg/dL (60-99); HDL Cholesterol 60 mg/dL (>40); LDL Cholesterol Calculated 100 mg/dL (<100); Potassium 4.1 mmol/L (3.3-5.1); Sodium 140 mmol/L (135-145); Total Protein 8.2 g/dL (6.5-8.0); Triglycerides 178 mg/dL (<150)
== END 2024-02-27 07:47 | disposition home or self-care (01) ==
LOC: HO.LAB 07:46
PROVIDERS: PCP Internal Medicine; Visit Provider Internal Medicine
DX: E55.9 Vitamin D deficiency, unspecified (principal); E78.00 Pure hypercholesterolemia, unspecified; D64.9 Anemia, unspecified
CPT/HCPCS: 36415; 80053; 80061; 81001; 82306; 85025

== ENCOUNTER 2024-03-02 10:34 | Outpatient (AMB) | payer OTHER, SELFPAY ==
[2024-03-02 10:43] VITALS: BP 118/80; PULSE 77; O2SAT 97; BMI 28.2
--- NOTE | 2024-03-02 10:43 | MHC.PC.OV ---
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 Accompanied by: Self / Same As Patient Allergies No Known Allergies [No Known Allergies*] Allergy (Verified 03/02/24 11:04) Medication List - Last Reconciled 03/02/24 by Gorge Reynolds MD atorvastatin 40 mg PO BEDTIME cholecalciferol (vitamin D3) (Vitamin D3) 25 mcg PO DAILY Dexilant (dexlansoprazole) 60 mg PO QAM NS famotidine (Pepcid) 40 mg PO BEDTIME hydrocortisone 2.5% (Proctosol HC) 1 appl VA BID [id number] 24,000-76,000 -120,000 unit (Creon) 2 caps PO BID 30 days tamsulosin 0.4 mg PO BEDTIME 90 days Tobacco use date assessed: 03/02/24 Dental Screening Dental Screen Date: 03/02/24 Did you have a dental visit in the last 12 months?: Yes Did you have a dental problem in the last 6 months where you did not have access to dental care?: No Was dental information given to patient?: Patient has dentist HPI 4MoAppt HPI Details Patient comes in today for his follow up visit States that he feels okay He denies any headaches or dizziness Denies any chest pains, no SOB No nausea/vomiting, no abdominal pain No change in bowel habits noted He had his follow up labs done a few days ago - to discuss his results States that he will be leaving for [place] sometime in early April 2024 and will be spending the [place] holidays over there with family He would also like to get his flu shot today [facility] Medical History (Updated 03/08/24 @ 05:35 by Gorge Reynolds MD) Benign prostatic hyperplasia with urinary frequency Hypersomnia Snoring COVID-19 Nocturia Onychia and paronychia of finger GERD (gastroesophageal reflux disease) IBS (irritable bowel syndrome) Overweight (BMI 25.0-29.9) Microscopic hematuria Vitamin D deficiency Allergic rhinitis Impaired fasting glucose Superficial gastritis without hemorrhage Pure hypercholesterolemia Surgical History History of esophagogastroduodenoscopy (EGD) History of colonoscopy Family History Father Medical history unknown Mother Hypertension Maternal Aunt Cancer Maternal Uncle Cancer Social History Household Members: Family Housing: Apartment Do you presently have visiting nurse or other home services: No Alcohol intake: current Alcohol intake frequency: holidays/special occasions only Alcohol type: beer Patient Tobacco Use Status: Never used Tobacco e-Cigarette/Vaping Use: Never Used Second Hand Smoke Exposure: Yes service: No Current occupational status: unemployed Cognitive needs: No Hearing needs: No Vision needs: No Questionnaire PHQ-9 Over the last 2 weeks, how often have you been bothered by any of the following problems? 1. Little interest or pleasure in doing things: not at all 2. Feeling down, depressed, or hopeless: not at all 3. Trouble falling or staying asleep, or sleeping too much: not at all 4. Feeling tired or having little energy: not at all 5. Poor appetite or overeating: not at all 6. Feeling bad about yourself - or that you are a failure or have let yourself or your family down: not at all 7. Trouble concentrating on things, such as reading the newspaper or watching television: not at all 8. Moving or speaking so slowly that other people could have noticed. Or the opposite - being so fidgety or restless that you have been moving around a lot more than usual: not at all 9. Thoughts that you would be better off or of hurting yourself in some way: not at all Total score: 0 Depression Screening Interpretation: Negative Depression Screening Done: Yes 57276 - PHQ-9 Billing: Yes Source: Developed by Drs. Erik Gauthier, Asuncion Morfin, Milton Trammell and colleagues, with an educational hudson from [employer]. Thrive Questionnaire Date Thrive assessed: 03/02/24 I am a: Patient What is your living situation today?: I have a steady place to live Within the past 12 months, did the food you bought not last and you didn't have the money to get more?: Never true Within the past 12 months, did you worry whether your food would run out before you got money to buy more?: Never true Do you have trouble paying for medicines?: No Do you have trouble getting transportation to medical appointments?: No Do you have trouble paying your heating and electricity bill?: No Do you have trouble taking care of your child, family member or friend?: No Do you have trouble with day-to-day activities such as bathing, preparing meals, shopping, managing finances, etc.?: No Are you currently unemployed and looking for a job?: I choose not to answer this question Are you interested in more education?: No Please select the resources that you would like help with: None Currently or been in a relationship where the following occur: No concerns reported THRIVE Score: 0 AUDIT C Alcohol Use Questionnaire (AUDIT-C) 1. How often do you have a drink containing alcohol?: 2-4 times a month 2. How many drinks containing alcohol do you have on a typical day when you are drinking?: 10 or more (per pt about 12 beers and 2-3 of hard liquour) 3. How often do you have six or more drinks on one occasion?: Weekly Total Score: 9 Score Reviewed/Action Taken: Yes (counseled to cut back on his beer drinking) GARRET-7 AMB Questionnaire GARRET-7 Date GARRET - 7 assessed: 03/02/24 Feeling nervous, anxious, or on edge: 0 = Not at all Not being able to stop or control worryin = Not at all Worrying too much about different things: 0 = Not at all Trouble relaxin = Not at all Being so restless that it is hard to sit still: 0 = Not at all Becoming easily annoyed or irritable: 0 = Not at all Feeling afraid as if something awful might happen: 0 = Not at all Total GARRET-7 score (0-4 normal; 5-9 mild; 10-14 moderate; 15-21 severe): 0 Source: Developed by Drs. Erik Gauthier, Asuncion Morfin, Milton Trammell and colleagues, with an educational hudson from [employer]. Review of Systems Const Denies chills, Denies fatigue, Denies fever(s) and Denies headache(s) ENT Denies dysphagia, Denies dizziness, Denies otalgia, Denies headache(s), Denies neck pain, Denies odynophagia and Denies sore throat Card Denies chest pain, Denies palpitations and Denies dyspnea Resp Denies cough, Denies dyspnea and Denies wheezing GI Denies abdominal pain, Denies constipation, Denies dysphagia, Denies heartburn, Denies diarrhea, Denies nausea, Denies odynophagia and Denies vomiting Denies dysuria, Denies nocturia (improved with Rx), Denies urinary frequency (improved with Rx) and Denies urinary incontinence Musc Denies back pain, Denies arthralgias and Denies neck pain Skin/Breast Denies rash Neuro Denies dizziness and Denies headache(s) Endo Denies fatigue and Denies palpitations Aller/Immun Denies wheezing Physical exam (Primary Care) Vital Signs: Last Vital Signs Pulse 77 03/02/24 10:43 BP 118/80 03/02/24 10:43 Pulse Ox 97 03/02/24 10:43 Oxygen Delivery Method Room Air 03/02/24 10:43 BMI result Body Mass Index 28.2 Tobacco/Smoking Status: Tobacco use Status Tobacco use date assessed 03/02/24 03/02/24 10:47 Patient Tobacco Use Status Never used Tobacco 03/02/24 10:47 e-Cigarette/Vaping Use Never Used 03/02/24 10:47 PHQ-9: PHQ-9 Score PHQ-9: Total score 0 03/02/24 11:17 Depression Screening Interpretation: Negative Thrive Assessment: Date of Thrive Assessment Date Thrive assessed 03/02/24 03/02/24 10:47 Currently or been in a relationship where the following occur: No concerns reported Const General: no acute distress and alert HENMT Ears: TM's normal bilaterally and EAC's normal Throat: Yes posterior oropharynx normal and Yes tonsils normal (no TP congestion noted) Neck Neck: Yes no lymphadenopathy and Yes supple Thyroid: Thyroid normal Resp Auscultation: clear to auscultation bilaterally, no rales and no wheezes Cardio Rate: regular rate Rhythm: regular rhythm Heart sounds: no murmurs GI Palpation (GI): Soft to palpation and nontender Auscultation: normal bowel sounds General: Yes no CVA tenderness Back/Spine/Pelvis Back: no CVA tenderness Thoracic/Lumbar Spine: No lumbar spinal tenderness Skin Rashes: no rashes Extrem General: Yes no clubbing, cyanosis or edema Office Procedures Flu Questionnaire Does the patient have a severe egg allergy?: No Does the patient have severe life threatening allergies?: No Does the patient have a fever or illness today?: No Has the patient ever had Guillain-Abington Syndrome?: No Has the patient ever had any past reaction to a flu shot?: No Immunizations Fluarix Triv 5827-8760 (PF) 45 mcg (15 mcg x 3)/0.5 mL IM syringe Performing Provider: Gorge Reynolds MD [facility] Administered by: ALESSIO Currie on 03/02/24 10:53 Dose Route Admin Location Dispensed Lot Number Expiration Date 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 0.5 mL IM Right Deltoid 0.5 mL [id number] 11/22/24 [id number] [employer] VIS Given Date VIS Provided VIS Publication Date 03/02/24 Single Vaccine 20 Eligibility Eligibility Date Funding Source Not [facility] Eligible 03/02/24 Private Results Reviewed Results Reviewed: Laboratory Tests 02/27/24 02/27/24 07:55 07:56 WBC 6.1 Hgb 14.6 Hct 41.4 L Plt Count 271 Sodium 140 Potassium 4.1 D Creatinine 0.70 Estimated GFR > 60 Fasting Glucose 90 Calcium 10.0 AST 19 ALT 24 Triglycerides 178 H Cholesterol 195 LDL Cholesterol, Calc 100 H HDL Cholesterol 60 25-OH Vitamin D Total 39.0 Ur Specific [place] 1.015 Urine Protein Negative Urine Glucose (UA) Negative Urine Blood Trace H Urine Nitrite Negative Ur Leukocyte Esterase Negative Coding Level of Care Code Est Pt Level 4 (33581) Diagnoses Pure hypercholesterolemia E78.00 Superficial gastritis without hemorrhage, unspecified chronicity K29.30 Chronicity: unspecified Impaired fasting glucose R73.01 Gallbladder polyp K82.4 Allergic rhinitis, unspecified seasonality, unspecified trigger J30.9 Allergic rhinitis trigger: unspecified Allergic rhinitis seasonality: unspecified Vitamin D deficiency E55.9 Benign prostatic hyperplasia with urinary frequency N40.1; R35.0 Onychomycosis B35.1 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 Alcohol use disorder F10.90 Overweight (BMI 25.0-29.9) E66.3 Assessment & Plan Assessment & Plan (1) Pure hypercholesterolemia: Code(s): E78.00 - Pure hypercholesterolemia, unspecified Category: Medical Plan: Results of his labs done a few days ago reviewed and discussed with patient Reinforced low cholesterol diet Continue Atorvastatin 40 mg QD Will recheck his labs and fasting lipids in 4 months for follow up (2) Superficial gastritis without hemorrhage: Code(s): K29.30 - Chronic superficial gastritis without bleeding Category: Medical Qualifiers: Chronicity: unspecified Qualified Code(s): K29.30 - Chronic superficial gastritis without bleeding Plan: Dietary restrictions reinforced EGD done in 2019 revealed findings consistent with antral gastritis Continue Dexilant 60 mg QD? (taken in the evening for better efficacy) - he has not had any flare up of his GI symptoms for months now Follow up with GI as scheduled (3) Impaired fasting glucose: Code(s): R73.01 - Impaired fasting glucose Category: Medical Plan: His FBS was normal at 90 mg/dl on his recent labs; HgbA1c was normal at 5.3% when checked previously Reinforced low calorie diet/exercise as tolerated (4) Gallbladder polyp: Code(s): K82.4 - Cholesterolosis of gallbladder Category: Medical Plan: This was initially seen on abdominal US done at the ER in July 2021 when he presented there for abdominal pain He was recommended to get follow up ultrasound in 6 months - this was ordered but patient ended up getting an abdominal and pelvic CT when he presented to the ER in April 2022 for enterocolitis Abdominal and pelvic CT back then revealed that the the liver is normal in size, shape, and attenuation with no focal hepatic lesion or biliary ductal dilatation; the gallbladder is unremarkable with no evidence of radiopaque gallstones, gallbladder wall thickening, or obvious pericholecystic inflammatory changes No further follow up is needed for this unless patient develops any symptoms (5) Allergic rhinitis: Code(s): J30.9 - Allergic rhinitis, unspecified Category: Medical Qualifiers: Allergic rhinitis trigger: unspecified Allergic rhinitis seasonality: unspecified Qualified Code(s): J30.9 - Allergic rhinitis, unspecified Plan: Continue OTC Loratadine 10 mg QD PRN (6) Vitamin D deficiency: Code(s): E55.9 - Vitamin D deficiency, unspecified Category: Medical Plan: Continue Vitamin D3 1000 units QD (7) Benign prostatic hyperplasia with urinary frequency: Code(s): N40.1 - Benign prostatic hyperplasia with lower urinary tract symptoms; R35.0 - Frequency of micturition Category: Medical Plan: His PSA was normal when last checked in June 2022 States that his urinary frequency and nocturia have improved a lot with Rx - continue Tamsulosin 0.4 mg Q HS Follow up with urology as scheduled (8) Onychomycosis: Code(s): B35.1 - Tinea unguium Category: Medical Plan: S/P Tx with Terbinafine 250 mg QD Follow up with podiatry as scheduled (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 - Other nail disorders Category: Medical Plan: Have reinforced to patient again that this is a benign condition but he should be watchful of any unusual skin lesions that appear and have them evaluated REVA Will continue to monitor this closely (10) Alcohol use disorder: Code(s): F10.90 - Alcohol use, unspecified, uncomplicated Category: Medical Plan: Patient is again counseled on the dangers of frequent and heavy alcohol use and is urged to cut back and quit altogether (11) Overweight (BMI 25.0-29.9): Code(s): E66.3 - Overweight Category: Medical Plan: Reinforced diet/exercise as tolerated/lose weight Plan As requested, flu vaccine given to patient today Follow up in 4 months Orders: Orders Complete Blood Count Auto Diff 4 Months D64.9 - Anemia, unspecified Comprehensive [place]. Panel Fast 4 Months E78.00 - Pure hypercholesterolemia, unspecified Magnesium 4 Months E83.42 - Hypomagnesemia Vitamin B12 and Folate 4 Months E53.8 - Deficiency of other specified B group vitamins Vitamin D 25-OH Total 4 Months E55.9 - Vitamin D deficiency, unspecified Influenza [id number] Immunization 03/02/24 Z23 - Encounter for immunization Lipid Panel 4 Months E78.00 - Pure hypercholesterolemia, unspecified Hemoglobin A1c 4 Months E11.9 - Type 2 diabetes mellitus without complications UA CC w/rflx Micro + Cult 4 Months R30.0 - Dysuria
== END 2024-03-02 11:15 | disposition home or self-care (01) ==
PROVIDERS: PCP Internal Medicine; Visit Provider Internal Medicine
DX: E78.00 Pure hypercholesterolemia, unspecified (principal); K29.30 Chronic superficial gastritis without bleeding; R73.01 Impaired fasting glucose; K82.4 Cholesterolosis of gallbladder; J30.9 Allergic rhinitis, unspecified; E55.9 Vitamin D deficiency, unspecified; N40.1 Benign prostatic hyperplasia with lower urinary tract symptoms; R35.0 Frequency of micturition; B35.1 Tinea unguium; L60.8 Other nail disorders; F10.90 Alcohol use, unspecified, uncomplicated; E66.3 Overweight

== ENCOUNTER → 2024-03-02 10:34 | Outpatient (BNVA) | payer OTHER, SELFPAY | PROVIDERS: PCP Internal Medicine; Visit Provider Internal Medicine | DX: Z23 Encounter for immunization (principal); D64.9 Anemia, unspecified; E78.00 Pure hypercholesterolemia, unspecified; K29.30 Chronic superficial gastritis without bleeding; R73.01 Impaired fasting glucose; K82.4 Cholesterolosis of gallbladder; E55.9 Vitamin D deficiency, unspecified; N40.1 Benign prostatic hyperplasia with lower urinary tract symptoms; R35.0 Frequency of micturition; B35.1 Tinea unguium; L60.8 Other nail disorders; F10.90 Alcohol use, unspecified, uncomplicated; E66.3 Overweight | CPT/HCPCS: 90471; 90656; 96127; 99212 ==

== ENCOUNTER → 2024-03-30 07:42 | Outpatient (BNVA) | payer OTHER, SELFPAY | PROVIDERS: PCP Internal Medicine; Visit Provider Psychiatry & Neurology Neurology | DX: Z00.00 Encounter for general adult medical examination without abnormal findings (principal); E78.00 Pure hypercholesterolemia, unspecified; K29.30 Chronic superficial gastritis without bleeding; R73.01 Impaired fasting glucose; K82.4 Cholesterolosis of gallbladder; J30.9 Allergic rhinitis, unspecified; E55.9 Vitamin D deficiency, unspecified; N40.1 Benign prostatic hyperplasia with lower urinary tract symptoms; R35.0 Frequency of micturition; B35.1 Tinea unguium; L60.8 Other nail disorders; F10.90 Alcohol use, unspecified, uncomplicated; E66.3 Overweight; Z68.27 Body mass index [BMI] 27.0-27.9, adult; Z79.899 Other long term (current) drug therapy | CPT/HCPCS: 90471; 96127; 99396 ==

== ENCOUNTER 2024-03-30 09:59 | Outpatient (AMB) | payer OTHER, SELFPAY ==
[2024-03-30 10:09] VITALS: BP 118/80; PULSE 79; O2SAT 97; BMI 27.6
--- NOTE | 2024-03-30 10:09 | A.OFFPC_ITS ---
Vital Signs 03/30/24 10:09 Height 5 ft 5 in Weight 166 lb BMI 27.6 BP 118/80 Blood Pressure Location Lt brachial Position Sitting Pulse 79 Pulse Source Pulse Oximeter Pulse Oximetry (%) 97 Oxygen Delivery Method Room Air Intake Visit Reasons: Annual Exam Special Procedure Tech Required: No Accompanied by: Spouse Allergies No Known Allergies [No Known Allergies*] Allergy (Verified 03/30/24 10:37) Medication List - Last Reconciled 03/30/24 by Gorge Reynolds MD atorvastatin 40 mg PO BEDTIME cholecalciferol (vitamin D3) (Vitamin D3) 25 mcg PO DAILY Dexilant (dexlansoprazole) 60 mg PO QAM NS famotidine (Pepcid) 40 mg PO BEDTIME hydrocortisone 2.5% (Proctosol HC) 1 appl VA BID [id number] 24,000-76,000 -120,000 unit (Creon) 2 caps PO BID 30 days tamsulosin 0.4 mg PO BEDTIME 90 days Tobacco use date assessed: 03/30/24 Dental Screening Dental Screen Date: 03/30/24 Did you have a dental visit in the last 12 months?: Yes Did you have a dental problem in the last 6 months where you did not have access to dental care?: No Was dental information given to patient?: Patient has dentist HPI Annual Exam HPI Details Patient comes in today for his annual physical examination States that he feels okay He denies any headaches or dizziness Denies any chest pains, no SOB No nausea/vomiting, no abdominal pain No change in bowel habits noted Denies any acute urinary symptoms Needs his Dexilant Rx refilled He is up-to-date with his colon cancer screening - will be due for repeat colonoscopy in 2026 [facility] Medical History Benign prostatic hyperplasia with urinary frequency Hypersomnia Snoring COVID-19 Nocturia Onychia and paronychia of finger GERD (gastroesophageal reflux disease) IBS (irritable bowel syndrome) Overweight (BMI 25.0-29.9) Microscopic hematuria Vitamin D deficiency Allergic rhinitis Impaired fasting glucose Superficial gastritis without hemorrhage Pure hypercholesterolemia Surgical History History of esophagogastroduodenoscopy (EGD) History of colonoscopy Family History Father Medical history unknown Mother Hypertension Maternal Aunt Cancer Maternal Uncle Cancer Social History Household Members: Family Housing: Apartment Do you presently have visiting nurse or other home services: No Alcohol intake: current Alcohol intake frequency: holidays/special occasions only Alcohol type: beer Patient Tobacco Use Status: Never used Tobacco e-Cigarette/Vaping Use: Never Used Second Hand Smoke Exposure: Yes service: No Current occupational status: unemployed Cognitive needs: No Hearing needs: No Vision needs: No Questionnaire PHQ-9 Over the last 2 weeks, how often have you been bothered by any of the following problems? 1. Little interest or pleasure in doing things: not at all 2. Feeling down, depressed, or hopeless: not at all 3. Trouble falling or staying asleep, or sleeping too much: not at all 4. Feeling tired or having little energy: not at all 5. Poor appetite or overeating: not at all 6. Feeling bad about yourself - or that you are a failure or have let yourself or your family down: not at all 7. Trouble concentrating on things, such as reading the newspaper or watching television: not at all 8. Moving or speaking so slowly that other people could have noticed. Or the opposite - being so fidgety or restless that you have been moving around a lot more than usual: not at all 9. Thoughts that you would be better off or of hurting yourself in some way: not at all Total score: 0 Depression Screening Interpretation: Negative Depression Screening Done: Yes 43418 - PHQ-9 Billing: Yes Source: Developed by Drs. Erik Gauthier, Asuncion Morfin, Milton Trammell and colleagues, with an educational hudson from [employer]. Thrive Questionnaire Date Thrive assessed: 03/30/24 I am a: Patient What is your living situation today?: I have a steady place to live Within the past 12 months, did the food you bought not last and you didn't have the money to get more?: Never true Within the past 12 months, did you worry whether your food would run out before you got money to buy more?: Never true Do you have trouble paying for medicines?: No Do you have trouble getting transportation to medical appointments?: No Do you have trouble paying your heating and electricity bill?: No Do you have trouble taking care of your child, family member or friend?: No Do you have trouble with day-to-day activities such as bathing, preparing meals, shopping, managing finances, etc.?: No Are you currently unemployed and looking for a job?: I choose not to answer this question Are you interested in more education?: No Please select the resources that you would like help with: None Currently or been in a relationship where the following occur: No concerns reported THRIVE Score: 0 AUDIT C Alcohol Use Questionnaire (AUDIT-C) 1. How often do you have a drink containing alcohol?: 2-3 times a week 2. How many drinks containing alcohol do you have on a typical day when you are drinking?: 7 to 9 3. How often do you have six or more drinks on one occasion?: Weekly Total Score: 9 Score Reviewed/Action Taken: Yes (patient is advised to cut back on his drinking) GARRET-7 AMB Questionnaire GARRET-7 Date GARRET - 7 assessed: 03/30/24 Feeling nervous, anxious, or on edge: 0 = Not at all Not being able to stop or control worryin = Not at all Worrying too much about different things: 0 = Not at all Trouble relaxin = Not at all Being so restless that it is hard to sit still: 0 = Not at all Becoming easily annoyed or irritable: 0 = Not at all Feeling afraid as if something awful might happen: 0 = Not at all Total GARRET-7 score (0-4 normal; 5-9 mild; 10-14 moderate; 15-21 severe): 0 Source: Developed by Drs. Erik Gauthier, Asuncion Morfin, Milton Trammell and colleagues, with an educational hudson from [employer]. Review of Systems Const Denies chills, Denies fatigue, Denies fever(s), Denies headache(s), Denies malaise and Denies weakness Eyes Denies blurry vision, Denies change in vision, Denies irritation and Denies itchy eyes ENT Denies dysphagia, Denies dizziness, Denies otalgia, Denies headache(s), Denies nasal congestion, Denies neck pain, Denies odynophagia and Denies sore throat Card Denies chest pain, Denies rapid heart rate, Denies irregular heart rhythm, Denies palpitations and Denies dyspnea Resp Denies chest congestion, Denies cough, Denies dyspnea and Denies wheezing GI Denies abdominal pain, Denies bloating, Denies constipation, Denies dysphagia, Denies heartburn, Denies diarrhea, Denies nausea, Denies odynophagia and Denies vomiting Denies hematuria, Denies difficulty urinating, Denies dysuria, Denies urinary frequency and Denies urinary urgency Musc Denies back pain, Denies arthralgias, Denies joint swelling, Denies muscle weakness and Denies neck pain Skin/Breast Denies change in pigmentation, Denies lesions, Denies rash and Denies unusual bruising Neuro Denies dizziness, Denies headache(s), Denies paresthesias and Denies weakness Endo Denies fatigue and Denies palpitations Aller/Immun Denies itchy eyes and Denies wheezing Physical exam (Primary Care) Vital Signs: Last Vital Signs Pulse 79 03/30/24 10:09 BP 118/80 03/30/24 10:09 Pulse Ox 97 03/30/24 10:09 Oxygen Delivery Method Room Air 03/30/24 10:09 BMI result Body Mass Index 27.6 Tobacco/Smoking Status: Tobacco use Status Tobacco use date assessed 03/30/24 03/30/24 10:10 Patient Tobacco Use Status Never used Tobacco 03/30/24 10:10 e-Cigarette/Vaping Use Never Used 03/30/24 10:10 PHQ-9: PHQ-9 Score PHQ-9: Total score 0 03/30/24 10:39 Depression Screening Interpretation: Negative Thrive Assessment: Date of Thrive Assessment Date Thrive assessed 03/30/24 03/30/24 10:10 Currently or been in a relationship where the following occur: No concerns reported Const General: no acute distress, alert and awake Orientation/consciousness: patient oriented x3 HENMT Head: Yes normocephalic and Yes atraumatic Ears: external ears normal, TM's normal bilaterally and EAC's normal General nose exam: No nasal discharge present Face and sinus: Yes normal facial exam and Yes sinuses nontender Teeth and gingiva: dentition normal Throat: Yes posterior oropharynx normal and Yes tonsils normal (no TP congestion) Eyes Eyelids: Yes eyelids normal Conjunctivae: conjunctivae normal Pupils: Equal, round and reactive pupils present EOM: EOMs intact bilaterally Neck Neck: Yes no lymphadenopathy and Yes supple Thyroid: Thyroid normal Resp Auscultation: clear to auscultation bilaterally, no rales and no wheezes Cardio Rate: regular rate Rhythm: regular rhythm Heart sounds: no murmurs GI Palpation (GI): Soft to palpation, nontender and No hepatosplenomegaly present Auscultation: normal bowel sounds General: Yes no CVA tenderness Back/Spine/Pelvis Back: no CVA tenderness Thoracic/Lumbar Spine: thoracic and lumbar spine normal to inspection Skin Lesions: no lesions Rashes: no rashes Neuro General: patient oriented x3, moves all extremities, no focal motor deficits and CN's II-XI intact bilaterally Cranial nerves: Yes Equal, round and reactive pupils present Cognition (Neuro): normal cognition Gait exam (Neuro): Normal gait present Extrem General: Yes no clubbing, cyanosis or edema Office Procedures Flu Questionnaire Does the patient have a severe egg allergy?: No Immunizations Fluarix Triv [id number] (PF) 45 mcg (15 mcg x 3)/0.5 mL IM syringe Performing Provider: Gorge Reynolds MD [place] [facility] [place] [facility] [place] [facility] Documented (not given) by: ALESSIO Currie on 03/30/24 10:11 Reason Not Given: Received Previously Coding Level of Care Code Est Pt Prev Care 40-64y(21106) Diagnoses Annual physical exam Z00.00 Pure hypercholesterolemia E78.00 Superficial gastritis without hemorrhage, unspecified chronicity K29.30 Chronicity: unspecified Impaired fasting glucose R73.01 Gallbladder polyp K82.4 Allergic rhinitis, unspecified seasonality, unspecified trigger J30.9 Allergic rhinitis trigger: unspecified Allergic rhinitis seasonality: unspecified Vitamin D deficiency E55.9 Benign prostatic hyperplasia with urinary frequency N40.1; R35.0 Onychomycosis B35.1 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 Alcohol use disorder F10.90 Overweight (BMI 25.0-29.9) E66.3 Assessment & Plan Assessment & Plan (1) Annual physical exam: Code(s): Z00.00 - Encounter for general adult medical examination without abnormal findings Category: Medical Plan: Patient just had his routine/follow up labs done last month - results have been discussed with him at his previous visit and his labs are all within normal range He is up-to-date with his colon cancer screening - will be due for repeat colonoscopy in 2026 (2) Pure hypercholesterolemia: Code(s): E78.00 - Pure hypercholesterolemia, unspecified Category: Medical Plan: Reinforced low cholesterol diet Continue Atorvastatin 40 mg QD Will recheck his labs and fasting lipids in 3 to 4 months for follow up (3) Superficial gastritis without hemorrhage: Code(s): K29.30 - Chronic superficial gastritis without bleeding Category: Medical Qualifiers: Chronicity: unspecified Qualified Code(s): K29.30 - Chronic superficial gastritis without bleeding Plan: Dietary restrictions reinforced EGD done in 2018 revealed findings consistent with antral gastritis Continue Dexilant 60 mg QD? (taken in the evening for better efficacy) - he has not had any flare up of his GI symptoms for months now Follow up with GI as scheduled (4) Impaired fasting glucose: Code(s): R73.01 - Impaired fasting glucose Category: Medical Plan: His FBS was normal at 90 mg/dl on his recent labs; HgbA1c was normal at 5.3% when checked previously Reinforced low calorie diet/exercise as tolerated (5) Gallbladder polyp: Code(s): K82.4 - Cholesterolosis of gallbladder Category: Medical Plan: This was initially seen on abdominal US done at the ER in July 2021 when he presented there for abdominal pain He was recommended to get follow up ultrasound in 6 months - this was ordered but patient ended up getting an abdominal and pelvic CT when he presented to the ER in April 2022 for enterocolitis Abdominal and pelvic CT back then revealed that the the liver is normal in size, shape, and attenuation with no focal hepatic lesion or biliary ductal dilatation; the gallbladder is unremarkable with no evidence of radiopaque gallstones, gallbladder wall thickening, or obvious pericholecystic inflammatory changes No further follow up is needed or recommended for this unless patient develops any symptoms (6) Allergic rhinitis: Code(s): J30.9 - Allergic rhinitis, unspecified Category: Medical Qualifiers: Allergic rhinitis trigger: unspecified Allergic rhinitis seasonality: unspecified Qualified Code(s): J30.9 - Allergic rhinitis, unspecified Plan: Continue OTC Loratadine 10 mg QD PRN (7) Vitamin D deficiency: Code(s): E55.9 - Vitamin D deficiency, unspecified Category: Medical Plan: Continue Vitamin D3 1000 units QD (8) Benign prostatic hyperplasia with urinary frequency: Code(s): N40.1 - Benign prostatic hyperplasia with lower urinary tract symptoms; R35.0 - Frequency of micturition Category: Medical Plan: His PSA was normal when last checked in June 2022 States that his urinary frequency and nocturia have improved a lot with Rx - continue Tamsulosin 0.4 mg Q HS Follow up with urology as scheduled (9) Onychomycosis: Code(s): B35.1 - Tinea unguium Category: Medical Plan: S/P Tx with Terbinafine 250 mg QD Follow up with podiatry as scheduled (10) Longitudinal melanonychia: Code(s): 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 - Other nail disorders Category: Medical Plan: Have reinforced to patient again that this is a benign condition but he should be watchful of any unusual skin lesions that appear and have them evaluated REVA Will continue to monitor this regularly (11) Alcohol use disorder: Code(s): F10.90 - Alcohol use, unspecified, uncomplicated Category: Medical Plan: Patient is again counseled on the dangers of frequent and heavy alcohol use and is urged to cut back and quit drinking altogether if possible (12) Overweight (BMI 25.0-29.9): Code(s): E66.3 - Overweight Category: Medical Plan: Reinforced diet/exercise as tolerated/lose weight Plan Follow up as scheduled in June 2024 Orders: Orders Influenza [id number] Immunization Today Z23 - Encounter for immunization Medications: Refilled Dexilant (dexlansoprazole) 60 mg PO QAM 30 caps 6RF NS
== END 2024-03-30 11:37 | disposition home or self-care (01) ==
LOC: HO.HMCH 10:00
PROVIDERS: PCP Internal Medicine; Visit Provider Internal Medicine
DX: Z00.00 Encounter for general adult medical examination without abnormal findings (principal); E78.00 Pure hypercholesterolemia, unspecified; K29.30 Chronic superficial gastritis without bleeding; R73.01 Impaired fasting glucose; K82.4 Cholesterolosis of gallbladder; J30.9 Allergic rhinitis, unspecified; E55.9 Vitamin D deficiency, unspecified; N40.1 Benign prostatic hyperplasia with lower urinary tract symptoms; R35.0 Frequency of micturition; B35.1 Tinea unguium; L60.8 Other nail disorders; F10.90 Alcohol use, unspecified, uncomplicated; E66.3 Overweight; Z23 Encounter for immunization

== ENCOUNTER 2024-04-27 10:07 | Outpatient (AMB) | payer OTHER, SELFPAY ==
[2024-04-27 10:11] VITALS: BP 120/78; PULSE 76; O2SAT 97; BMI 28.2
--- NOTE | 2024-04-27 10:11 | MHC.PC.OV ---
Vital Signs 04/27/24 10:11 Height 5 ft 5 in Weight 169 lb 6 oz BMI 28.2 BP 120/78 Blood Pressure Location Lt brachial Position Sitting Pulse 76 Pulse Source Pulse Oximeter Pulse Oximetry (%) 97 Oxygen Delivery Method Room Air Intake Visit Reasons: follow up ear infection/ pneumonia Environmental Sampler Required: No Accompanied by: Self / Same As Patient Allergies No Known Allergies [No Known Allergies*] Allergy (Verified 04/27/24 10:29) Medication List - Last Reconciled 04/27/24 by Gorge Reynolds MD atorvastatin 40 mg PO BEDTIME cholecalciferol (vitamin D3) (Vitamin D3) 25 mcg PO DAILY Dexilant (dexlansoprazole) 60 mg PO QAM NS famotidine (Pepcid) 40 mg PO BEDTIME hydrocortisone 2.5% (Proctosol HC) 1 appl NE BID [id number]-[id number]-ejauxqu 24,000-76,000 -120,000 unit (Creon) 2 caps PO BID 30 days tamsulosin 0.4 mg PO BEDTIME 90 days Tobacco use date assessed: 04/27/24 Dental Screening Dental Screen Date: 04/27/24 Did you have a dental visit in the last 12 months?: Yes Did you have a dental problem in the last 6 months where you did not have access to dental care?: No Was dental information given to patient?: Patient has dentist HPI follow up ear infection/ pneumonia HPI Details Patient comes in today for follow up of his pneumonia and left ear infection States that he went to [facility] in [place] about 3 weeks ago for a recurrent cough that has been going on for weeks as well as some left ear pain and discomfort Relates that he had chest x-rays done at the clinic and was advised that he has a pneumonia as well as a left ear infection and was started on a couple of Abx x 5 days Based on their description, one of them sounds like a Z-tanya and the other one is likely Doxycycline or a second generation cephalosporin like Cefuroxime He was also advised to follow up with his PCP for these issues in a week or two Patient states that his symptoms have mostly cleared up at this time although he still has an occasional cough Relates (+) on and off nasal congestion but he denies any fever or sore throat Denies any headaches or dizziness Denies any chest pains, no increased SOB No nausea/vomiting, no abdominal pain No change in bowel habits noted [facility] Medical History Benign prostatic hyperplasia with urinary frequency Hypersomnia Snoring COVID-19 Nocturia Onychia and paronychia of finger GERD (gastroesophageal reflux disease) IBS (irritable bowel syndrome) Overweight (BMI 25.0-29.9) Microscopic hematuria Vitamin D deficiency Allergic rhinitis Impaired fasting glucose Superficial gastritis without hemorrhage Pure hypercholesterolemia Surgical History History of esophagogastroduodenoscopy (EGD) History of colonoscopy Family History Father Medical history unknown Mother Hypertension Maternal Aunt Cancer Maternal Uncle Cancer Social History Household Members: Family Housing: Apartment Do you presently have visiting nurse or other home services: No Alcohol intake: current Alcohol intake frequency: holidays/special occasions only Alcohol type: beer Patient Tobacco Use Status: Never used Tobacco e-Cigarette/Vaping Use: Never Used Second Hand Smoke Exposure: Yes service: No Current occupational status: unemployed Cognitive needs: No Hearing needs: No Vision needs: No Questionnaire PHQ-9 Over the last 2 weeks, how often have you been bothered by any of the following problems? 1. Little interest or pleasure in doing things: not at all 2. Feeling down, depressed, or hopeless: not at all 3. Trouble falling or staying asleep, or sleeping too much: not at all 4. Feeling tired or having little energy: not at all 5. Poor appetite or overeating: not at all 6. Feeling bad about yourself - or that you are a failure or have let yourself or your family down: not at all 7. Trouble concentrating on things, such as reading the newspaper or watching television: not at all 8. Moving or speaking so slowly that other people could have noticed. Or the opposite - being so fidgety or restless that you have been moving around a lot more than usual: not at all 9. Thoughts that you would be better off or of hurting yourself in some way: not at all Total score: 0 Depression Screening Interpretation: Negative Depression Screening Done: Yes [id number] - PHQ-9 Billing: Yes Source: Developed by Drs. Erik Gauthier, Asuncion Morfin, Milton Trammell and colleagues, with an educational hudson from [employer]. Thrive Questionnaire Date Thrive assessed: 04/27/24 I am a: Patient What is your living situation today?: I have a steady place to live Within the past 12 months, did the food you bought not last and you didn't have the money to get more?: Never true Within the past 12 months, did you worry whether your food would run out before you got money to buy more?: Never true Do you have trouble paying for medicines?: No Do you have trouble getting transportation to medical appointments?: No Do you have trouble paying your heating and electricity bill?: No Do you have trouble taking care of your child, family member or friend?: No Do you have trouble with day-to-day activities such as bathing, preparing meals, shopping, managing finances, etc.?: No Are you currently unemployed and looking for a job?: I choose not to answer this question Are you interested in more education?: No Please select the resources that you would like help with: None Currently or been in a relationship where the following occur: No concerns reported THRIVE Score: 0 AUDIT C Alcohol Use Questionnaire (AUDIT-C) 1. How often do you have a drink containing alcohol?: 2-3 times a week 2. How many drinks containing alcohol do you have on a typical day when you are drinking?: 7 to 9 3. How often do you have six or more drinks on one occasion?: Weekly Total Score: 9 Score Reviewed/Action Taken: Yes (patient is advised to cut back on his drinking) GARRET-7 AMB Questionnaire GARRET-7 Date GARRET - 7 assessed: 04/27/24 Feeling nervous, anxious, or on edge: 0 = Not at all Not being able to stop or control worryin = Not at all Worrying too much about different things: 0 = Not at all Trouble relaxin = Not at all Being so restless that it is hard to sit still: 0 = Not at all Becoming easily annoyed or irritable: 0 = Not at all Feeling afraid as if something awful might happen: 0 = Not at all Total GARRET-7 score (0-4 normal; 5-9 mild; 10-14 moderate; 15-21 severe): 0 Source: Developed by Drs. Erik Gauthier, Asuncion Morfin, Milton Trammell and colleagues, with an educational hudson from [employer]. Review of Systems Const Denies chills, Denies fatigue, Denies fever(s) and Denies headache(s) ENT Denies dysphagia, Denies dizziness, Denies otalgia, Denies headache(s), Reports nasal congestion (on and off), Denies neck pain, Denies odynophagia and Denies sore throat Card Denies chest pain, Denies irregular heart rhythm, Denies palpitations and Denies dyspnea Resp Denies chest congestion, Denies cough and Denies dyspnea GI Denies abdominal pain, Denies constipation, Denies dysphagia, Denies heartburn, Denies diarrhea, Denies nausea, Denies odynophagia and Denies vomiting Denies difficulty urinating, Denies dysuria and Denies urinary frequency Musc Denies back pain, Denies arthralgias and Denies neck pain Skin/Breast Denies rash Neuro Denies dizziness, Denies headache(s) and Denies paresthesias Endo Denies fatigue and Denies palpitations Physical exam (Primary Care) Vital Signs: Last Vital Signs Pulse 76 04/27/24 10:11 BP 120/78 04/27/24 10:11 Pulse Ox 97 04/27/24 10:11 Oxygen Delivery Method Room Air 04/27/24 10:11 BMI result Body Mass Index 28.2 Tobacco/Smoking Status: Tobacco use Status Tobacco use date assessed 04/27/24 04/27/24 10:16 Patient Tobacco Use Status Never used Tobacco 04/27/24 10:16 e-Cigarette/Vaping Use Never Used 04/27/24 10:16 PHQ-9: PHQ-9 Score PHQ-9: Total score 0 04/27/24 10:16 Depression Screening Interpretation: Negative Thrive Assessment: Date of Thrive Assessment Date Thrive assessed 04/27/24 04/27/24 10:16 Currently or been in a relationship where the following occur: No concerns reported Const General: no acute distress and alert HENMT Ears: TM's normal bilaterally and EAC's normal Throat: Yes posterior oropharynx normal and Yes tonsils normal (no TP congestion) Neck Neck: Yes no lymphadenopathy and Yes supple Thyroid: Thyroid normal Resp Auscultation: clear to auscultation bilaterally, no rales and no wheezes Cardio Rate: regular rate Rhythm: regular rhythm Heart sounds: no murmurs GI Palpation (GI): Soft to palpation and nontender Auscultation: normal bowel sounds General: Yes no CVA tenderness Back/Spine/Pelvis Back: no CVA tenderness Skin Rashes: no rashes Extrem General: Yes no clubbing, cyanosis or edema Coding Level of Care Code Tele Est Pt Level 3 (21251) Diagnoses Community acquired pneumonia, unspecified laterality J18.9 Laterality: unspecified laterality Left otitis media, unspecified otitis media type H66.92 Otitis media type: unspecified Additional Codes PHQ-9 - 99444 - PHQ-9 Billing: Yes ([id number]) Assessment & Plan Assessment & Plan (1) Community acquired pneumonia: Code(s): J18.9 - Pneumonia, unspecified organism Category: Medical Qualifiers: Laterality: unspecified laterality Qualified Code(s): J18.9 - Pneumonia, unspecified organism (2) Left otitis media: Code(s): H66.92 - Otitis media, unspecified, left ear Category: Medical Qualifiers: Otitis media type: unspecified Qualified Code(s): H66.92 - Otitis media, unspecified, left ear Plan Both conditions appear to have improved/resolved with empiric dual Abx Tx prescribed by urgent care for him a few weeks ago - he was likely treated with a combination of Azithromycin and Cefuroxime or Azithromycin and Doxycycline - and does not need any further intervention or treatment at this time We will try to request for copies of his recent urgent care visit notes sent over for documentation purposes He has already gotten his flu vaccine and latest COVID booster from his local pharmacy a few weeks ago We will go ahead and refill his Dexilant Rx as requested Follow up as scheduled in June 2024 Medications: Refilled Dexilant (dexlansoprazole) 60 mg PO QAM 30 caps 6RF NS
== END 2024-04-27 10:37 | disposition home or self-care (01) ==
PROVIDERS: PCP Internal Medicine; Visit Provider Internal Medicine
DX: J18.9 Pneumonia, unspecified organism (principal); H66.92 Otitis media, unspecified, left ear

== ENCOUNTER → 2024-04-27 10:07 | Outpatient (BNVA) | payer OTHER, SELFPAY | PROVIDERS: PCP Internal Medicine; Visit Provider Internal Medicine | DX: J18.9 Pneumonia, unspecified organism (principal); H66.92 Otitis media, unspecified, left ear | CPT/HCPCS: 96127 ==

== ENCOUNTER → 2024-06-01 09:51 | Outpatient (REF) | payer OTHER, SELFPAY | LOC: HO.SL 09:51 | PROVIDERS: PCP Internal Medicine; Visit Provider Psychiatry & Neurology Neurology | DX: G47.10 Hypersomnia, unspecified (principal); R06.83 Snoring | CPT/HCPCS: 95806 ==

== ENCOUNTER → 2024-06-01 10:09 | Outpatient (BNV) | payer OTHER, SELFPAY | PROVIDERS: PCP Internal Medicine; Visit Provider Psychiatry & Neurology Neurology | DX: G47.10 Hypersomnia, unspecified (principal); R06.83 Snoring | CPT/HCPCS: 95806 ==

== ENCOUNTER 2024-06-29 08:45 | Outpatient (AMB) | payer OTHER, SELFPAY ==
--- NOTE | 2024-06-29 08:49 | A.OFFVIS_ITS ---
Vital Signs 06/29/24 08:50 Height 5 ft 5 in Weight 172 lb BMI 28.6 Intake Visit Reasons: Follow up sleep Intake Note: Patient presents for follow up. Allergies No Known Allergies [No Known Allergies*] Allergy (Verified 06/29/24 08:54) HPI Comments Details: 58 year old male here for a follow up of night terrors and mild sleep apnea. HST: May 2024 Mild Degree Sleep Apnea AHI is 6 O2 is Hernán at 86%, Trial Patient on APAP [id number] He goes to sleep at 10pm, he wakes up at 4am, and is unable to go back to sleep due to the night terrors. He wakes up scared, as if someone is going to hit him, he kicks his feet out and feels exhausted during the day. He is a side sleeper and snores loudly, wakes himself up as he gasps for air if supine. His father was an alcoholic and the children would run to the grandmother's house in [place], bc of the father's behavior. He visits [place] and doesn't have the bad dreams, or terrors there. He ruminates when he is trying to sleep and can not turn off the thoughts. His dreams are vivid and he is always running in his dream, and he falls down with fear. 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 He needs more insight as to why this is happening, and then sobs. He used to have a pet and when that relationship ended the dog went with her. His son is 22 year old son, and he sees him once a month. He drinks 12 beers on Fridays and 12 beers on Saturdays, he likes to cook and cooks daily. He has 4 brothers and 6 sisters, he sees them and his mom who is 82 every other weekend. [facility] Medical History Benign prostatic hyperplasia with urinary frequency Hypersomnia Snoring COVID-19 Nocturia Onychia and paronychia of finger GERD (gastroesophageal reflux disease) IBS (irritable bowel syndrome) Overweight (BMI 25.0-29.9) Microscopic hematuria Vitamin D deficiency Allergic rhinitis Impaired fasting glucose Superficial gastritis without hemorrhage Pure hypercholesterolemia Surgical History History of esophagogastroduodenoscopy (EGD) History of colonoscopy Family History Father Medical history unknown Mother Hypertension Maternal Aunt Cancer Maternal Uncle Cancer Social History Household Members: Family Housing: Apartment Do you presently have visiting nurse or other home services: No Alcohol intake: current Alcohol intake frequency: holidays/special occasions only Alcohol type: beer Patient Tobacco Use Status: Never used Tobacco e-Cigarette/Vaping Use: Never Used Second Hand Smoke Exposure: Yes service: No Current occupational status: unemployed Cognitive needs: No Hearing needs: No Vision needs: No Review of Systems Const All systems reviewed & are unremarkable except as noted in HPI and below Physical Exam Vital Signs: BMI result Body Mass Index 28.6 Const General: cooperative, healthy appearing and comfortable Nutritional Appearance: average body habitus Orientation/consciousness: patient oriented x3 Eyes Pupils: Equal, round and reactive pupils present Neuro Other: Mallampatti grade 4 General: patient oriented x3, tone normal, moves all extremities and no focal motor deficits Cranial nerves: Yes Equal, round and reactive pupils present, Yes Bilaterally intact EOM present, Yes Nystagmus not present, Yes Normal facial strength present, Yes Midline tongue present and Yes Symmetric palate elevation present Cognition (Neuro): normal cognition Gait exam (Neuro): Normal gait present Motor exam (neuro): 5/5 motor strength present throughout and Normal motor muscle tone present throughout Deep tendon reflexes (DTR's): Right triceps reflex intensity grade: 1+, Left triceps reflex intensity grade: 1+, Rt Biceps (C5, C6): 1+, Left biceps reflex intensity grade: 1+, Right brachioradialis reflex intensity grade: 1+, Left brachioradialis reflex intensity grade: 1+, Right patellar reflex intensity grade: 1+ and Left patellar reflex intensity grade: 1+ Coordination: [id number] test normal Results Reviewed Results Reviewed: HST May 2024 AHI is 6 and O2 Hernán at 86% will send him for PSG as patient is having night terrors. Assessment & Plan Assessment & Plan (1) Night terrors: Code(s): F51.4 - Sleep terrors [night terrors] Category: Medical Plan Night Terrors: PSG in lab study Labs: R/o deficiencies TSH/ B12/ Folate/ MMA Homocysteine CBT with sleep specialists to help understand cause of terrors. (psychology today) Will f/u with him in 3 months for compliance and results of the PSG. Orders: Orders RT PSG in-lab sleep study Today F51.4 - Sleep terrors [night terrors] Patient Instructions: HST shows mild sleep apnea AHI is 6 and O2 Hernán at 86% for 4 min, will trial him on CPAP 5-20cm H20. Sleep Hygiene is provided: Coding Level of Care Code Est Pt Level 4 (64623) Diagnoses Night terrors F51.4
[2024-06-29 08:50] VITALS: BMI 28.6
--- OUTSIDE RECORDS SUMMARY | 2024-06-29 08:58 | XMS_ITS | Clinical Summary ---
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 Name Role Phone Unavailable Primary Care Provider Unavailabl e Social History Tobacco Use Types Packs/Day Years Used Date Smoking Tobacco: Never Assessed Sex and Gender Information Value Date Recorded Sex Assigned at Male 03/25/2022 10:16 AM EDT Legal Sex Male 10:16 AM EDT Gender Identity Choose not to disclose 10:16 AM EDT Sexual Orientation Choose not to disclose 2021 10:16 AM EDT Plan of Treatment Health Maintenance Due Date Last Done Comments CT Colonography 1965 Colonoscopy 1965 Colorectal Cancer Screening 1965 Depression Screening 1965 FIT DNA/Cologuard 1965 FIT 1965 FOBT 1965 Lipid Panel 1965 Sigmoidoscopy 1965 Alcohol/Substance Use Screening 1977 Tobacco Screening 1977 Hepatitis B Vaccines (1 of 3 - 19+ 3-dose series) 1984 Pneumococcal Vaccine: 50+ Years (1 of 1 - PCV) 2015 Zoster Vaccines (1 of 2) 2015 COVID-19 Vaccine ( season) 2024 06/02/2023, 04/30/2022, 04/04/2021, Additional history exists Influenza Vaccine (#1) 2024 3, 03/25/2022, 04/17/2021, Additional history exists DTaP/Tdap/Td Vaccines (2 - Td or Tdap) 06/03/2026 06/03/2016 RSV Patients and Patients Aged 60 years or older (1 - 1-dose 75+ series) 2040 HIB Vaccines Aged Out No longer eligi ble based on patient's age to complete this topic HPV Vaccines Aged Out No longer eligi ble based on patient's age to complete this topic Hepatitis A Vaccines Aged Out No long er eligible based on patient's age to complete this topic IPV Vaccines Aged Out No longer eligi ble based on patient's age to complete this topic Meningococcal Vaccine Aged Out No luiz francois eligible based on patient's age to complete this topic Pneumococcal Vaccine: Pediatrics (0 to 5 Years) and At-Risk Patients (6 to 49) Years) Aged Out No longer eligible based on patient's age to complete this topic RSV under 20 months Aged Out No longe r eligible based on patient's age to complete this topic Rotavirus Vaccines Aged Out No longer eligible based on patient's age to complete this topic
--- OUTSIDE RECORDS SUMMARY | 2024-06-29 08:58 | XMS_ITS | Encounter Summary ---
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 Name Role Phone Unavailable Primary Care Provider Unavailabl e Encounter Details Date Type Department Care Team (Latest Contact Info) Description 10/03/2020 Abstract [facility] CONVERSIONS Dental, Provider, DDS Social History Tobacco Use Types Packs/Day Years Used Date Smoking Tobacco: Never Assessed Sex and Gender Information Value Date Recorded Sex Assigned at Male 03/25/2022 10:16 AM EDT Legal Sex Male 10:16 AM EDT Gender Identity Choose not to disclose 10:16 AM EDT Sexual Orientation Choose not to disclose 2021 10:16 AM EDT documented as of this encounter Plan of Treatment Not on file documented as of this encounter Visit Diagnoses Not on filedocumented in this encounter
== END 2024-06-29 10:09 | disposition home or self-care (01) ==
PROVIDERS: PCP Internal Medicine; Visit Provider Physician Assistant Medical
DX: F51.4 Sleep terrors [night terrors] (principal)
CPT/HCPCS: 99214

== ENCOUNTER → 2024-06-29 08:45 | Outpatient (BNVA) | payer OTHER, SELFPAY | PROVIDERS: PCP Internal Medicine; Visit Provider Physician Assistant Medical | DX: F51.4 Sleep terrors [night terrors] (principal); G47.30 Sleep apnea, unspecified | CPT/HCPCS: 99212 ==

== ENCOUNTER 2024-06-30 07:16 | Outpatient (REF) | payer OTHER, SELFPAY ==
--- OUTSIDE RECORDS SUMMARY | 2024-06-30 07:18 | XMS_ITS | Clinical Summary ---
Author Organization [employer] Address [address] [place] [address] [address] [place] [address] Care Team Providers Care Affirmative Action Officer Name Role Phone Unavailable Primary Care Provider [...]
[2024-06-30 07:30] LABS: MANUAL DIFF FLAG NO
[2024-06-30 07:41] LABS: Basophils Percent Auto 0.6 % (0-2); Eosinophils Absolute Auto 0.1 X10*3/uL (0.0-0.4); Eosinophils Percent Auto 2.7 % (0-4); Hematocrit 43.7 % (42.0-52.0); Hemoglobin 15.1 g/dl (14.0-18.0); Imm Gran Abs Auto 0.01 X10*3/uL (0.00-0.03); Imm Gran Pct Auto 0.2 % (0.0-0.4); Lymphocytes Absolute Auto 1.9 X10*3/uL (1.2-4.9); Mean Corpuscular HGB Conc 34.6 g/dl (31.0-36.0); Mean Corpuscular Hemoglobin 32.2 pg (27.0-33.0); Mean Corpuscular Volume 93.2 fL (80.0-98.0); Mean Platelet Volume 10.2 fL (9.4-12.4); Monocytes Absolute Auto 0.7 X10*3/uL (0.1-1.2); Monocytes Percent Auto 13.3 % (2-11); Neutrophils Absolute Auto 2.5 x10*3/uL (2.0-8.3); Neutrophils Percent Auto 47.2 % (45-73); Platelet Count 223 X10*3/uL (160-400); Red Blood Count 4.69 X10*6/uL (4.60-5.80); Red Cell Distribution Width 11.9 % (11.0-16.0); White Blood Count 5.2 X10*3/uL (4.8-10.8)
[2024-06-30 08:07] LABS: Estimated Average Glucose 108 mg/dL; Hemoglobin A1C 142.0846 umol/L; Hemoglobin A1c % 5.4 % (<6.0); Total Hemoglobin (HGBA1C) 3992.7215 umol/L
[2024-06-30 08:24] LABS: Appearance Urine Clear; Color Urine Yellow; Glucose Urine UA Negative (Negative); Leukocyte Esterase Urine Negative (Negative); Nitrite Urine Negative (Negative); PH 7.5 (5.0-9.0); Urine Blood Negative (Negative); Urine Ketones Negative (Negative); Urine Protein Negative (Neg-Trace)
[2024-06-30 08:39] LABS: Anion Gap 12 (12-20); Aspartate Amino Transferase 29 U/L (5-37); Bilirubin Total 0.4 mg/dL (0.0-1.0); Blood Urea Nitrogen 13 mg/dL (9-16); Calcium 9.2 mg/dL (8.4-10.2); Carbon Dioxide 28 mmol/L (22-29); Chloride 104 mmol/L (96-108); Estimated Glomerular Filt Rate > 60; Glucose Fasting 103 mg/dL (60-99); Magnesium 2.1 mg/dL (1.6-2.6); Potassium 4.6 mmol/L (3.3-5.1); Sodium 139 mmol/L (135-145)
[2024-06-30 08:40] LABS: Alanine Aminotransferase 30 U/L (0-40); Albumin Level 4.6 g/dL (3.5-5.0); Alkaline Phosphatase 52 U/L (39-117); Cholesterol 182 mg/dL (<200); HDL Cholesterol 63 mg/dL (>40); LDL Cholesterol Calculated 102 mg/dL (<100); Triglycerides 86 mg/dL (<150)
[2024-06-30 08:46] LABS: Vitamin D 25-OH Total 35.1 ng/mL (>30)
[2024-06-30 08:48] LABS: Folate 10.2 ng/mL (> or = 4.0); Vitamin B12 366 pg/mL (200-900)
== END 2024-06-30 07:17 | disposition home or self-care (01) ==
LOC: HO.LAB 07:16
PROVIDERS: PCP Internal Medicine; Visit Provider Internal Medicine
DX: R30.0 Dysuria (principal); D64.9 Anemia, unspecified; E78.00 Pure hypercholesterolemia, unspecified; E83.42 Hypomagnesemia; E53.8 Deficiency of other specified B group vitamins; E55.9 Vitamin D deficiency, unspecified; E11.9 Type 2 diabetes mellitus without complications
CPT/HCPCS: 36415; 80053; 80061; 81003; 82306; 82607; 82746; 83036; 83735; 85025

== ENCOUNTER 2024-07-06 10:26 | Outpatient (AMB) | payer OTHER, SELFPAY ==
[2024-07-06 10:39] VITALS: BP 120/80; PULSE 71; O2SAT 99; BMI 28.7
--- NOTE | 2024-07-06 10:39 | MHC.PC.OV ---
Vital Signs 07/06/24 10:39 Height 5 ft 5 in Weight 172 lb 4 oz BMI 28.7 BP 120/80 Blood Pressure Location Lt brachial Position Sitting Pulse 71 Pulse Source Pulse Oximeter Pulse Oximetry (%) 99 Oxygen Delivery Method Room Air Intake Visit Reasons: hyperlipidemia, gastritis, IFG Publishing Specialist Required: No Accompanied by: Self / Same As Patient Allergies No Known Allergies [No Known Allergies*] Allergy (Verified 07/06/24 10:58) Medication List - Last Reconciled 07/06/24 by Gorge Reynolds MD atorvastatin 40 mg PO BEDTIME cholecalciferol (vitamin D3) (Vitamin D3) 25 mcg PO DAILY Dexilant (dexlansoprazole) 60 mg PO QAM NS famotidine (Pepcid) 40 mg PO BEDTIME hydrocortisone 2.5% (Proctosol HC) 1 appl LA BID [id number] 24,000-76,000 -120,000 unit (Creon) 2 caps PO BID 30 days tamsulosin 0.4 mg PO BEDTIME 90 days Tobacco use date assessed: 07/06/24 Dental Screening Dental Screen Date: 07/06/24 Did you have a dental visit in the last 12 months?: Yes Did you have a dental problem in the last 6 months where you did not have access to dental care?: No Was dental information given to patient?: Patient has dentist HPI hyperlipidemia, gastritis, IFG HPI Details Patient comes in today for his follow-up visit States that he feels okay He denies any headaches or dizziness Denies any chest pains, no increased shortness of breath No nausea/vomiting, no abdominal pain No change in bowel habits noted Patient reports that he has been experiencing increasing depression lately and would like to get a referral to go for counseling He had his follow-up labs done last week - to discuss his results [facility] Medical History (Updated 07/12/24 @ 03:40 by Gorge Reynolds MD) Depression Anxiety and depression Benign prostatic hyperplasia with urinary frequency Hypersomnia Snoring COVID-19 Nocturia Onychia and paronychia of finger GERD (gastroesophageal reflux disease) IBS (irritable bowel syndrome) Overweight (BMI 25.0-29.9) Microscopic hematuria Vitamin D deficiency Allergic rhinitis Impaired fasting glucose Superficial gastritis without hemorrhage Pure hypercholesterolemia Surgical History History of esophagogastroduodenoscopy (EGD) History of colonoscopy Family History Father Medical history unknown Mother Hypertension Maternal Aunt Cancer Maternal Uncle Cancer Social History Household Members: Family Housing: Apartment Do you presently have visiting nurse or other home services: No Alcohol intake: current Alcohol intake frequency: holidays/special occasions only Alcohol type: beer Patient Tobacco Use Status: Never used Tobacco e-Cigarette/Vaping Use: Never Used Second Hand Smoke Exposure: Yes service: No Current occupational status: unemployed Cognitive needs: No Hearing needs: No Vision needs: No Questionnaire PHQ-9 Over the last 2 weeks, how often have you been bothered by any of the following problems? 1. Little interest or pleasure in doing things: not at all 2. Feeling down, depressed, or hopeless: not at all 3. Trouble falling or staying asleep, or sleeping too much: not at all 4. Feeling tired or having little energy: not at all 5. Poor appetite or overeating: not at all 6. Feeling bad about yourself - or that you are a failure or have let yourself or your family down: not at all 7. Trouble concentrating on things, such as reading the newspaper or watching television: not at all 8. Moving or speaking so slowly that other people could have noticed. Or the opposite - being so fidgety or restless that you have been moving around a lot more than usual: not at all 9. Thoughts that you would be better off or of hurting yourself in some way: not at all Total score: 0 Depression Screening Interpretation: Negative Depression Screening Done: Yes 79076 - PHQ-9 Billing: Yes Source: Developed by Drs. Erik Gauthier, Asuncion Morfin, Milton Trammell and colleagues, with an educational hudson from [employer]. Thrive Questionnaire Date Thrive assessed: 07/06/24 I am a: Patient What is your living situation today?: I have a steady place to live Within the past 12 months, did the food you bought not last and you didn't have the money to get more?: Never true Within the past 12 months, did you worry whether your food would run out before you got money to buy more?: Never true Do you have trouble paying for medicines?: No Do you have trouble getting transportation to medical appointments?: No Do you have trouble paying your heating and electricity bill?: No Do you have trouble taking care of your child, family member or friend?: No Do you have trouble with day-to-day activities such as bathing, preparing meals, shopping, managing finances, etc.?: No Are you currently unemployed and looking for a job?: I choose not to answer this question Are you interested in more education?: No Please select the resources that you would like help with: None Currently or been in a relationship where the following occur: No concerns reported THRIVE Score: 0 AUDIT C Alcohol Use Questionnaire (AUDIT-C) 1. How often do you have a drink containing alcohol?: 2-3 times a week 2. How many drinks containing alcohol do you have on a typical day when you are drinking?: 7 to 9 3. How often do you have six or more drinks on one occasion?: Weekly Total Score: 9 Score Reviewed/Action Taken: Yes (patient is advised to cut back on his drinking) GARRET-7 AMB Questionnaire GARRET-7 Date GARRET - 7 assessed: 07/06/24 Feeling nervous, anxious, or on edge: 0 = Not at all Not being able to stop or control worryin = Not at all Worrying too much about different things: 0 = Not at all Trouble relaxin = Not at all Being so restless that it is hard to sit still: 0 = Not at all Becoming easily annoyed or irritable: 0 = Not at all Feeling afraid as if something awful might happen: 0 = Not at all Total GARRET-7 score (0-4 normal; 5-9 mild; 10-14 moderate; 15-21 severe): 0 Source: Developed by Drs. Erik Gauthier, Asuncion Morfin, Milton Trammell and colleagues, with an educational hudson from [employer]. Review of Systems Const Denies chills, Denies fatigue, Denies fever(s) and Denies headache(s) ENT Denies dysphagia, Denies dizziness, Denies otalgia, Denies headache(s), Denies neck pain, Denies odynophagia and Denies sore throat Card Denies chest pain, Denies irregular heart rhythm, Denies palpitations and Denies dyspnea Resp Denies chest congestion, Denies cough and Denies dyspnea GI Denies abdominal pain, Denies constipation, Denies dysphagia, Denies heartburn, Denies diarrhea, Denies nausea, Denies odynophagia and Denies vomiting Denies difficulty urinating, Denies dysuria and Denies urinary frequency Musc Denies back pain, Denies arthralgias and Denies neck pain Skin/Breast Denies rash Neuro Denies dizziness, Denies headache(s) and Denies paresthesias Psych Reports depression (increasing) Endo Denies fatigue and Denies palpitations Physical exam (Primary Care) Vital Signs: Last Vital Signs Pulse 71 07/06/24 10:39 BP 120/80 07/06/24 10:39 Pulse Ox 99 07/06/24 10:39 Oxygen Delivery Method Room Air 07/06/24 10:39 BMI result Body Mass Index 28.7 Tobacco/Smoking Status: Tobacco use Status Tobacco use date assessed 07/06/24 07/06/24 10:44 Patient Tobacco Use Status Never used Tobacco 07/06/24 10:44 e-Cigarette/Vaping Use Never Used 07/06/24 10:44 PHQ-9: PHQ-9 Score PHQ-9: Total score 0 07/06/24 10:59 Depression Screening Interpretation: Negative Thrive Assessment: Date of Thrive Assessment Date Thrive assessed 07/06/24 07/06/24 10:44 Currently or been in a relationship where the following occur: No concerns reported Const General: no acute distress and alert HENMT Ears: TM's normal bilaterally and EAC's normal Throat: Yes posterior oropharynx normal and Yes tonsils normal (no TP congestion) Neck Neck: Yes supple and No lymphadenopathy Thyroid: Thyroid normal Resp Auscultation: clear to auscultation bilaterally, no rales and no wheezes Cardio Rate: regular rate Rhythm: regular rhythm Heart sounds: no murmurs GI Palpation (GI): Soft to palpation and nontender Auscultation: normal bowel sounds General: Yes no CVA tenderness Back/Spine/Pelvis Back: no CVA tenderness Skin Rashes: no rashes Extrem General: Yes no clubbing, cyanosis or edema Results Reviewed Results Reviewed: Laboratory Tests 12/04/23 02/27/24 02/27/24 07:39 07:55 07:56 WBC 6.1 Hgb 14.6 Hct 41.4 L Plt Count 271 Sodium 140 Potassium 4.1 D Creatinine 0.70 Estimated GFR > 60 Fasting Glucose 90 Hemoglobin A1c % Calcium 10.0 Magnesium AST 19 ALT 24 Triglycerides 178 H Cholesterol 195 LDL Cholesterol, Calc 100 H HDL Cholesterol 60 Prostate Specific Ag 0.75 25-OH Vitamin D Total 39.0 Vitamin B12 Folate TSH 0.99 Ur Specific [place] 1.015 Urine Protein Negative Urine Glucose (UA) Negative Urine Blood Trace H Urine Nitrite Negative Ur Leukocyte Esterase Negative 06/30/24 06/30/24 07:23 07:28 WBC 5.2 Hgb 15.1 Hct 43.7 Plt Count 223 Sodium 139 Potassium 4.6 Creatinine 0.77 Estimated GFR > 60 Fasting Glucose 103 H Hemoglobin A1c % 5.4 Calcium 9.2 D Magnesium 2.1 AST 29 ALT 30 Triglycerides 86 Cholesterol 182 LDL Cholesterol, Calc 102 H HDL Cholesterol 63 Prostate Specific Ag 25-OH Vitamin D Total 35.1 Vitamin B12 366 Folate 10.2 TSH Ur Specific [place] 1.020 Urine Protein Negative Urine Glucose (UA) Negative Urine Blood Negative Urine Nitrite Negative Ur Leukocyte Esterase Negative Coding Level of Care Code Est Pt Level 4 (27900) Diagnoses Pure hypercholesterolemia E78.00 Superficial gastritis without hemorrhage, unspecified chronicity K29.30 Chronicity: unspecified Impaired fasting glucose R73.01 Gallbladder polyp K82.4 Allergic rhinitis, unspecified seasonality, unspecified trigger J30.9 Allergic rhinitis trigger: unspecified Allergic rhinitis seasonality: unspecified Vitamin D deficiency E55.9 Benign prostatic hyperplasia with urinary frequency N40.1; R35.0 Onychomycosis B35.1 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 Alcohol use disorder F10.90 Anxiety and depression F41.9; F32.A Overweight (BMI 25.0-29.9) E66.3 Additional Codes PHQ-9 - 45675 - PHQ-9 Billing: Yes ([id number]) Assessment & Plan Assessment & Plan (1) Pure hypercholesterolemia: Code(s): E78.00 - Pure hypercholesterolemia, unspecified Category: Medical Plan: Results of his labs done last week reviewed and discussed with patient Reinforced low cholesterol diet Continue Atorvastatin 40 mg QD Will recheck his labs and fasting lipids in 3 to 4 months for follow up (2) Superficial gastritis without hemorrhage: Code(s): K29.30 - Chronic superficial gastritis without bleeding Category: Medical Qualifiers: Chronicity: unspecified Qualified Code(s): K29.30 - Chronic superficial gastritis without bleeding Plan: Dietary restrictions reinforced EGD done in 2019 revealed findings consistent with antral gastritis Continue Dexilant 60 mg QD? (taken in the evening for better efficacy) - he has not had any flare up of his GI symptoms for months now Follow up with GI as scheduled (3) Impaired fasting glucose: Code(s): R73.01 - Impaired fasting glucose Category: Medical Plan: His FBS was again normal at 90 mg/dl on his recent labs; HgbA1c was normal at 5.3% when checked previously Reinforced low calorie diet/exercise as tolerated (4) Gallbladder polyp: Code(s): K82.4 - Cholesterolosis of gallbladder Category: Medical Plan: This was initially seen on abdominal US done at the ER in July 2021 when he presented there for abdominal pain He was recommended to get follow up ultrasound in 6 months - this was ordered but patient ended up getting an abdominal and pelvic CT when he presented to the ER in April 2022 for enterocolitis Abdominal and pelvic CT back then revealed that the the liver is normal in size, shape, and attenuation with no focal hepatic lesion or biliary ductal dilatation; the gallbladder is unremarkable with no evidence of radiopaque gallstones, gallbladder wall thickening, or obvious pericholecystic inflammatory changes No further follow up is needed or recommended for this unless patient develops any symptoms (5) Allergic rhinitis: Code(s): J30.9 - Allergic rhinitis, unspecified Category: Medical Qualifiers: Allergic rhinitis trigger: unspecified Allergic rhinitis seasonality: unspecified Qualified Code(s): J30.9 - Allergic rhinitis, unspecified Plan: Continue OTC Loratadine 10 mg QD PRN (6) Vitamin D deficiency: Code(s): E55.9 - Vitamin D deficiency, unspecified Category: Medical Plan: Continue Vitamin D3 1000 units QD (7) Benign prostatic hyperplasia with urinary frequency: Code(s): N40.1 - Benign prostatic hyperplasia with lower urinary tract symptoms; R35.0 - Frequency of micturition Category: Medical Plan: His PSA was normal when last checked in November 2023 States that his urinary frequency and nocturia have improved a lot with Rx - continue Tamsulosin 0.4 mg Q HS Follow up with urology as scheduled (8) Onychomycosis: Code(s): B35.1 - Tinea unguium Category: Medical Plan: S/P Tx with Terbinafine 250 mg QD Follow up with podiatry as scheduled (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 - Other nail disorders Category: Medical Plan: Have reinforced to patient again that this is a benign condition but he should be watchful of any unusual skin lesions that appear and have them evaluated REVA Will continue to monitor this regularly (10) Alcohol use disorder: Code(s): F10.90 - Alcohol use, unspecified, uncomplicated Category: Medical Plan: Patient is again counseled on the dangers of frequent and heavy alcohol use and is urged to cut back and quit drinking altogether if possible (11) Anxiety and depression: Code(s): F41.9 - Anxiety disorder, unspecified; F32.A - Depression, unspecified Category: Medical Plan: Patient reports experiencing increasing depression lately and is requesting for referral to psychiatry for counseling Per request, will refer him to Psychiatry for further evaluation and management (12) Overweight (BMI 25.0-29.9): Code(s): E66.3 - Overweight Category: Medical Plan: Reinforced diet/exercise as tolerated/lose weight Plan Follow-up in 4 months Orders: Orders Complete Blood Count Auto Diff 4 Months D64.9 - Anemia, unspecified Lipid Panel 4 Months E78.00 - Pure hypercholesterolemia, unspecified Comprehensive [place]. Panel Fast 4 Months E78.00 - Pure hypercholesterolemia, unspecified Referrals Psychiatry Referral F32.A - Depression, unspecified, F41.9 - Anxiety disorder, unspecified
== END 2024-07-06 11:12 | disposition home or self-care (01) ==
PROVIDERS: PCP Internal Medicine; Visit Provider Internal Medicine
DX: E78.00 Pure hypercholesterolemia, unspecified (principal); K29.30 Chronic superficial gastritis without bleeding; R73.01 Impaired fasting glucose; K82.4 Cholesterolosis of gallbladder; J30.9 Allergic rhinitis, unspecified; E55.9 Vitamin D deficiency, unspecified; N40.1 Benign prostatic hyperplasia with lower urinary tract symptoms; R35.0 Frequency of micturition; B35.1 Tinea unguium; L60.8 Other nail disorders; F10.90 Alcohol use, unspecified, uncomplicated; F41.9 Anxiety disorder, unspecified; F32.A Depression, unspecified; E66.3 Overweight

== ENCOUNTER → 2024-07-06 10:26 | Outpatient (BNVA) | payer OTHER, SELFPAY | PROVIDERS: PCP Internal Medicine; Visit Provider Internal Medicine | DX: E78.00 Pure hypercholesterolemia, unspecified (principal); K29.30 Chronic superficial gastritis without bleeding; R73.01 Impaired fasting glucose; K82.4 Cholesterolosis of gallbladder; J30.9 Allergic rhinitis, unspecified; E55.9 Vitamin D deficiency, unspecified; N40.1 Benign prostatic hyperplasia with lower urinary tract symptoms; R35.0 Frequency of micturition; B35.1 Tinea unguium; L60.8 Other nail disorders; F10.90 Alcohol use, unspecified, uncomplicated; F41.9 Anxiety disorder, unspecified; F32.A Depression, unspecified; E66.3 Overweight | CPT/HCPCS: 96127; 99212 ==

== ENCOUNTER → 2024-07-22 20:30 | Outpatient (REF) | payer OTHER, SELFPAY ==
--- OUTSIDE RECORDS SUMMARY | 2024-07-22 21:15 | XMS_ITS | Clinical Summary ---
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
== END ==
LOC: HO.SL 20:30
PROVIDERS: PCP Internal Medicine; Visit Provider Physician Assistant Medical
DX: F51.4 Sleep terrors [night terrors] (principal)
CPT/HCPCS: 95810

== ENCOUNTER → 2024-07-22 21:24 | Outpatient (BNV) | payer OTHER, SELFPAY | PROVIDERS: PCP Internal Medicine; Visit Provider Psychiatry & Neurology Neurology | DX: G47.33 Obstructive sleep apnea (adult) (pediatric) (principal) | CPT/HCPCS: 95810 ==

== ENCOUNTER 2024-10-26 11:33 | Outpatient (AMB) | payer OTHER, SELFPAY ==
[2024-10-26 11:40] VITALS: BP 126/74; PULSE 72; O2SAT 98; BMI 29.2
--- NOTE | 2024-10-26 11:40 | A.OFFVIS_ITS ---
Vital Signs 10/26/24 11:40 Height 5 ft 5 in Weight 175 lb 8 oz BMI 29.2 BP 126/74 Blood Pressure Location Rt brachial Position Sitting Pulse 72 Pulse Source Pulse Oximeter Pulse Oximetry (%) 98 Oxygen Delivery Method Room Air Intake Visit Reasons: 3 mnts f/u Intake Note: Patient presents follow up Sleep. PSG in chart(AHI-8, RAUL 87%. Trial APAP 5- 20cm water). Compliance in chart(29/60days, >=4hrs 42%, Average usage 3hrs 21min, AHI-2.1)Patient states the mask is very uncomfortable and feels like when he moves it doesn't stay in place. Solar Sales Specialist Required: Yes Solar Sales Specialist Services: Solar Sales Specialist Offered & Declined Solar Sales Specialist Name: Information Interpreted: non-clinical & clinical Accompanied by: Spouse Allergies No Known Allergies [No Known Allergies*] Allergy (Verified 07/06/24 10:58) HPI Comments Details: 59 year old male is here for a follow up of night terrors and mild sleep apnea. is here and helps with history. PSG 08/17/2024 mild elana AHI is 8 and oxygen raul to 87% with PLDM. AHI is 6 and O2 Raul at 86%, trial patient on APAP [id number] [facility] compliance report 07/25/2024-10/25/2024 Total use is 29/60days and 48% and > 4 hours is 25 days Press [id number] leaks median 7.6 and AHI 2.1 He says his mask is uncomfortable and does not stay in place, plans to reach out to his sleep company to trial a few different masks as he is a mouth breather. He has air bubbles in his chest which need to be burped out however they don't come up, he says. The snoring has resolved completely, he no longer gasps for air. His energy levels are improving. He goes to sleep at 10pm, he wakes up at 4am to the bathroom and now is able to go back to sleep and having less night terrors. His father was an alcoholic and he is trying to find a counselor with whom he can speak in confidence about his childhood trauma. His dreams are vivid but unlike before. Denies Headaches and RLS symptoms. Mood is improved seeing a therapist walking daily and eating a better diet now, along with increased hydration. Memory is stable. He drinks 12 beers on Fridays and 12 beers on Saturdays, he likes to cook. He has 4 brothers and 6 sisters, he sees them all along with his mom who is 82 every other weekend. [facility] Medical History Depression Anxiety and depression Benign prostatic hyperplasia with urinary frequency Hypersomnia Snoring COVID-19 Nocturia Onychia and paronychia of finger GERD (gastroesophageal reflux disease) IBS (irritable bowel syndrome) Overweight (BMI 25.0-29.9) Microscopic hematuria Vitamin D deficiency Allergic rhinitis Impaired fasting glucose Superficial gastritis without hemorrhage Pure hypercholesterolemia Surgical History History of esophagogastroduodenoscopy (EGD) History of colonoscopy Family History Father Medical history unknown Mother Hypertension Maternal Aunt Cancer Maternal Uncle Cancer Social History Household Members: Family Housing: Apartment Do you presently have visiting nurse or other home services: No Alcohol intake: current Alcohol intake frequency: holidays/special occasions only Alcohol type: beer Patient Tobacco Use Status: Never used Tobacco e-Cigarette/Vaping Use: Never Used Second Hand Smoke Exposure: Yes service: No Current occupational status: unemployed Cognitive needs: No Hearing needs: No Vision needs: No Physical Exam Vital Signs: Last Vital Signs Pulse 72 10/26/24 11:40 BP 126/74 10/26/24 11:40 Pulse Ox 98 10/26/24 11:40 Oxygen Delivery Method Room Air 10/26/24 11:40 BMI result Body Mass Index 29.2 Const General: cooperative, comfortable and no acute distress Orientation/consciousness: patient oriented x3 HEENT Face and sinus: Yes face symmetric Eyes Pupils: Equal, round and reactive pupils present Neck Neck: Yes full ROM Resp Effort & Inspection: normal respiratory effort and able to speak in complete sentences Neuro General: patient oriented x3 and moves all extremities Cranial nerves: Yes Facial sensation intact/muscles of mastication intact, Yes Equal, round and reactive pupils present, Yes Normal accommodation reflex present, Yes Normal facial strength present, Yes Midline tongue present, Yes Ability to bilaterally rotate head present and Yes Ability to bilaterally elevate shoulders present Psych Appearance: grossly normal Affect: normal affect Thought process: Normal thought process present Thought content: Normal thought content present Results Reviewed Results Reviewed: [facility] compliance report 07/25/2024-10/25/2024 Total use is 29/60days and 48% and > 4 hours is 25 days Press [id number] leaks median 7.6 and AHI 2.1 Assessment & Plan Assessment & Plan (1) Night terrors: Code(s): F51.4 - Sleep terrors [night terrors] Category: Medical (2) Fatigue due to sleep pattern disturbance: Code(s): R53.83 - Other fatigue; G47.9 - Sleep disorder, unspecified Category: Medical (3) Excessive daytime sleepiness: Code(s): G47.19 - Other hypersomnia Category: Medical Plan PSG completed: Mild E[facility] started cpap therapy 08/2024 and is compliant, AHI was 6 and oxygen raul to 84% Labs pending to r/o deficiencies f/u with CBT with sleep specialists to help understand cause of night terrors. ([email or web address]) Will f/u with him in 3 months for compliance. Orders: Orders Vitamin D 25-OH Total Today G47.9 - Sleep disorder, unspecified, R53.83 - Other fatigue TSH reflex Free T4 Today G47.9 - Sleep disorder, unspecified, R53.83 - Other fatigue Ferritin Today G47.9 - Sleep disorder, unspecified, R53.83 - Other fatigue Methylmalonic Acid Today G47.9 - Sleep disorder, unspecified, R53.83 - Other fatigue Homocysteine Today G47.9 - Sleep disorder, unspecified, R53.83 - Other fatigue Vitamin B12 and Folate Today G47.9 - Sleep disorder, unspecified, R53.83 - Other fatigue Patient Instructions: Sleep Hygiene provided: set a scheduled bedtime and wake time to help regulate the circadian rhythm and balance the release of pituitary hormones. Sleep in a dark room, temperatures below 68 degrees, and no devices n bed. Limit caffeinated products 6 hours prior to bed, and limit fluids 2-4 hours prior to bed. Gentle night yoga, diffusing essential oils, and playing soft music can be relaxing. Coding Level of Care Code Est Pt Level 4 (77195) Diagnoses Night terrors F51.4 Fatigue due to sleep pattern disturbance R53.83; G47.9 Excessive daytime sleepiness G47.19 Time Spent (min) 20 Comment improving
--- OUTSIDE RECORDS SUMMARY | 2024-10-26 13:11 | XMS_ITS | Encounter Summary ---
Author Organization [employer] Address [address] [place] [address] Care Team Providers Care Insulation Applicator Name Role Phone Unavailable Primary Care Provider Unavailabl e Encounter Details Date Type Department Care Team (Latest Contact Info) Description 10/03/2020 Abstract [facility] CONVERSIONS Dental, Provider, DDS Social History Tobacco [...]
== END 2024-10-26 12:29 | disposition home or self-care (01) ==
LOC: HO.HSMS 11:34
PROVIDERS: PCP Internal Medicine; Visit Provider Physician Assistant Medical
DX: F51.4 Sleep terrors [night terrors] (principal); R53.83 Other fatigue; G47.9 Sleep disorder, unspecified; G47.19 Other hypersomnia
CPT/HCPCS: 99214

== ENCOUNTER → 2024-10-26 11:33 | Outpatient (BNVA) | payer OTHER, SELFPAY | PROVIDERS: PCP Internal Medicine; Visit Provider Physician Assistant Medical | DX: F51.4 Sleep terrors [night terrors] (principal); G47.9 Sleep disorder, unspecified; G47.19 Other hypersomnia; R53.83 Other fatigue | CPT/HCPCS: 99212 ==

== ENCOUNTER 2024-11-18 07:04 | Outpatient (REF) | payer OTHER, SELFPAY ==
[2024-11-18 07:21] LABS: MANUAL DIFF FLAG NO
[2024-11-18 07:52] LABS: Basophils Percent Auto 0.8 % (0-2); Eosinophils Absolute Auto 0.1 X10*3/uL (0.0-0.4); Eosinophils Percent Auto 2.1 % (0-4); Hematocrit 40.3 % (42.0-52.0); Hemoglobin 14.3 g/dl (14.0-18.0); Imm Gran Abs Auto 0.01 X10*3/uL (0.00-0.03); Imm Gran Pct Auto 0.2 % (0.0-0.4); Lymphocytes Absolute Auto 1.8 X10*3/uL (1.2-4.9); Lymphocytes Percent Auto 33.5 % (20-40); Mean Corpuscular HGB Conc 35.5 g/dl (31.0-36.0); Mean Corpuscular Hemoglobin 32.4 pg (27.0-33.0); Mean Corpuscular Volume 91.2 fL (80.0-98.0); Mean Platelet Volume 9.6 fL (9.4-12.4); Monocytes Absolute Auto 0.7 X10*3/uL (0.1-1.2); Monocytes Percent Auto 13.4 % (2-11); Neutrophils Absolute Auto 2.6 x10*3/uL (2.0-8.3); Platelet Count 249 X10*3/uL (160-400); Red Blood Count 4.42 X10*6/uL (4.60-5.80); Red Cell Distribution Width 11.9 % (11.0-16.0); White Blood Count 5.2 X10*3/uL (4.8-10.8)
[2024-11-18 08:17] LABS: Alanine Aminotransferase 27 U/L (0-40); Albumin Level 4.8 g/dL (3.5-5.0); Alkaline Phosphatase 48 U/L (39-117); Anion Gap 11 (12-20); Aspartate Amino Transferase 32 U/L (5-37); Bilirubin Total 0.4 mg/dL (0.0-1.0); Blood Urea Nitrogen 18 mg/dL (9-16); Calcium 9.2 mg/dL (8.4-10.2); Carbon Dioxide 27 mmol/L (22-29); Chloride 103 mmol/L (96-108); Cholesterol 193 mg/dL (<200); Estimated Glomerular Filt Rate > 60; Glucose Fasting 105 mg/dL (60-99); HDL Cholesterol 62 mg/dL (>40); LDL Cholesterol Calculated 115 mg/dL (<100); Potassium 4.1 mmol/L (3.3-5.1); Sodium 137 mmol/L (135-145); Total Protein 7.3 g/dL (6.5-8.0); Triglycerides 84 mg/dL (<150)
[2024-11-18 08:27] LABS: Appearance Urine Clear; Color Urine Yellow; Glucose Urine UA Negative (Negative); Leukocyte Esterase Urine Negative (Negative); Nitrite Urine Negative (Negative); Urine Blood Negative (Negative); Urine Ketones Negative (Negative); Urine Protein Negative (Neg-Trace)
[2024-11-18 08:36] LABS: Ferritin 136 ng/mL (20-250); TSH reflex Free T4 1.12 uIU/mL (0.32-4.0); Vitamin D 25-OH Total 32.2 ng/mL (>30)
[2024-11-18 09:05] LABS: Folate 8.3 ng/mL (> or = 4.0); Vitamin B12 290 pg/mL (200-900)
[2024-11-21 05:24] LABS: Methylmalonic Acid 112 nmol/L (55-335)
== END 2024-11-18 07:05 | disposition home or self-care (01) ==
LOC: HO.LAB 07:04
PROVIDERS: Physician Assistant Medical; PCP Internal Medicine; Visit Provider Internal Medicine
DX: E78.00 Pure hypercholesterolemia, unspecified (principal); D64.9 Anemia, unspecified; R30.0 Dysuria; R53.83 Other fatigue; G47.9 Sleep disorder, unspecified
CPT/HCPCS: 36415; 80053; 80061; 81003; 82306; 82607; 82728; 82746; 83090; 83921; 84443; 85025

== ENCOUNTER 2024-11-25 13:34 | Outpatient (AMB) | payer OTHER, SELFPAY ==
--- NOTE | 2024-11-25 13:34 | A.OFFPC_ITS ---
Vital Signs 11/25/24 13:35 Height 5 ft 5 in Weight 172 lb 4 oz BMI 28.7 BP 122/80 Blood Pressure Location Lt brachial Position Sitting Pulse 87 Pulse Source Pulse Oximeter Pulse Oximetry (%) 96 Oxygen Delivery Method Room Air Intake Visit Reasons: Follow up Instrument Fitter Required: No Accompanied by: Self / Same As Patient Allergies No Known Allergies (No Known Allergies*) Allergy (Verified 11/25/24 13:48) Medication List - Last Reconciled 11/25/24 by Gorge Reynolds MD atorvastatin 40 mg PO BEDTIME cholecalciferol (vitamin D3) (Vitamin D3) 25 mcg PO DAILY Dexilant (dexlansoprazole) 60 mg PO QAM NS famotidine (Pepcid) 40 mg PO BEDTIME Held on 11/04/23. Instructions: nausea hydrocortisone 2.5% (Proctosol HC) 1 appl [place] BID [id number] 24,000-76,000 -120,000 unit (Creon) 2 caps PO BID 30 days tamsulosin 0.4 mg PO BEDTIME 90 days Tobacco use date assessed: 11/25/24 Dental Screening Dental Screen Date: 11/25/24 Did you have a dental visit in the last 12 months?: Yes Did you have a dental problem in the last 6 months where you did not have access to dental care?: No Was dental information given to patient?: Patient has dentist HPI Follow up HPI Details Patient comes in today for his follow up visit States that he feels okay He denies any headaches or dizziness Denies any chest pains, no shortness of breath No nausea /vomiting, no abdominal pain No change in bowel habits noted He had his follow-up labs done last week - to discuss his results [facility] Medical History Depression Anxiety and depression Benign prostatic hyperplasia with urinary frequency Hypersomnia Snoring COVID-19 Nocturia Onychia and paronychia of finger GERD (gastroesophageal reflux disease) IBS (irritable bowel syndrome) Overweight (BMI 25.0-29.9) Microscopic hematuria Vitamin D deficiency Allergic rhinitis Impaired fasting glucose Superficial gastritis without hemorrhage Pure hypercholesterolemia Surgical History History of esophagogastroduodenoscopy (EGD) History of colonoscopy Family History Father Medical history unknown Mother Hypertension Maternal Aunt Cancer Maternal Uncle Cancer Social History Household Members: Family Housing: Apartment Do you presently have visiting nurse or other home services: No Alcohol intake: current Alcohol intake frequency: holidays/special occasions only Alcohol type: beer Patient Tobacco Use Status: Never used Tobacco e-Cigarette/Vaping Use: Never Used Second Hand Smoke Exposure: Yes service: No Current occupational status: unemployed Cognitive needs: No Hearing needs: No Vision needs: No Questionnaire PHQ-9 Over the last 2 weeks, how often have you been bothered by any of the following problems? 1. Little interest or pleasure in doing things: not at all 2. Feeling down, depressed, or hopeless: not at all 3. Trouble falling or staying asleep, or sleeping too much: not at all 4. Feeling tired or having little energy: not at all 5. Poor appetite or overeating: not at all 6. Feeling bad about yourself - or that you are a failure or have let yourself or your family down: not at all 7. Trouble concentrating on things, such as reading the newspaper or watching television: not at all 8. Moving or speaking so slowly that other people could have noticed. Or the opposite - being so fidgety or restless that you have been moving around a lot more than usual: not at all 9. Thoughts that you would be better off or of hurting yourself in some wa y: not at all Total score: 0 Depression Screening Interpretation: Negative Depression Screening Done: Yes 59622 - PHQ-9 Billing: Yes Source: Developed by Drs. Erik Gauthier, Asuncion Morfin, Milton Trammell and colleagues, with an educational hudson from [employer]. Thrive Questionnaire Date Thrive assessed: 11/25/24 I am a: Patient What is your living situation today?: I have a steady place to live Within the past 12 months, did the food you bought not last and you didn't have the money to get more?: Often true Within the past 12 months, did you worry whether your food would run out before you got money to buy more?: Often true Do you have trouble paying for medicines?: I choose not to answer this question Do you have trouble getting transportation to medical appointments?: I choose not to answer this question Do you have trouble paying your heating and electricity bill?: I choose not to answer this question Do you have trouble taking care of your child, family member or friend?: I choose not to answer this question Do you have trouble with day-to-day activities such as bathing, preparing meals, shopping, managing finances, etc.?: No Are you currently unemployed and looking for a job?: No Are you interested in more education?: No Please select the resources that you would like help with: None Currently or been in a relationship where the following occur: No concerns reported THRIVE Score: 2 AUDIT C Alcohol Use Questionnaire (AUDIT-C) 1. How often do you have a drink containing alcohol?: 2-3 times a week 2. How many drinks containing alcohol do you have on a typical day when you are drinking?: 3 or 4 3. How often do you have six or more drinks on one occasion?: Weekly Total Score: 7 Score Reviewed/Action Taken: Yes GARRET-7 AMB Questionnaire GARRET-7 Date GARRET - 7 assessed: 11/25/24 Feeling nervous, anxious, or on edge: 0 = Not at all Not being able to stop or control worryin = Not at all Worrying too much about different things: 0 = Not at all Trouble relaxin = Not at all Being so restless that it is hard to sit still: 0 = Not at all Becoming easily annoyed or irritable: 0 = Not at all Feeling afraid as if something awful might happen: 0 = Not at all Total GARRET-7 score (0-4 normal; 5-9 mild; 10-14 moderate; 15-21 severe): 0 Source: Developed by Drs. Erik Gauthier, Asuncion Morfin, Milton Trammell and colleagues, with an educational hudson from [employer]. Review of Systems Const Denies chills, Denies fatigue, Denies fever(s) and Denies headache(s) ENT Denies dysphagia, Denies dizziness, Denies otalgia, Denies headache(s), Denies neck pain, Denies odynophagia and Denies sore throat Card Denies chest pain, Denies irregular heart rhythm, Denies palpitations and Denies dyspnea Resp Denies chest congestion, Denies cough and Denies dyspnea GI Denies abdominal pain, Denies constipation, Denies dysphagia, Denies heartburn, Denies diarrhea, Denies nausea, Denies odynophagia and Denies vomiting Denies difficulty urinating, Denies dysuria and Denies urinary frequency Musc Denies back pain, Denies arthralgias and Denies neck pain Skin/Breast Denies rash Neuro Denies dizziness, Denies headache(s) and Denies paresthesias Psych Reports depression (better controlled) Endo Denies fatigue and Denies palpitations Physical exam (Primary Care) Vital Signs: Last Vital Signs Pulse 87 11/25/24 13:35 BP 122/80 11/25/24 13:35 Pulse Ox 96 11/25/24 13:35 Oxygen Delivery Method Room Air 11/25/24 13:35 BMI result Body Mass Index 28.7 Tobacco/Smoking Status: Tobacco use Status Tobacco use date assessed 11/25/24 11/25/24 13:39 Patient Tobacco Use Status Never used Tobacco 11/25/24 13:39 e-Cigarette/Vaping Use Never Used 11/25/24 13:39 PHQ-9: PHQ-9 Score PHQ-9: Total score 0 11/25/24 22:10 Depression Screening Interpretation: Negative Thrive Assessment: Date of Thrive Assessment Date Thrive assessed 11/25/24 11/25/24 13:39 Currently or been in a relationship where the following occur: No concerns reported Const General: no acute distress and alert HENMT Ears: TM's normal bilaterally and EAC's normal Throat: Yes posterior oropharynx normal and Yes tonsils normal (no TP congestion) Neck Neck: Yes supple and No lymphadenopathy Thyroid: Thyroid normal Resp Auscultation: clear to auscultation bilaterally, no rales and no wheezes Cardio Rate: regular rate Rhythm: regular rhythm Heart sounds: no murmurs GI Palpation (GI): Soft to palpation and nontender Auscultation: normal bowel sounds General: Yes no CVA tenderness Back/Spine/Pelvis Back: no CVA tenderness Skin Rashes: no rashes Extrem General: Yes no clubbing, cyanosis or edema Results Reviewed Results Reviewed: Laboratory Tests 11/18/24 11/18/24 07:12 07:19 WBC 5.2 Hgb 14.3 Hct 40.3 L Plt Count 249 Sodium 137 Potassium 4.1 Creatinine 0.69 Estimated GFR > 60 Fasting Glucose 105 H Calcium 9.2 AST 32 ALT 27 Triglycerides 84 Cholesterol 193 LDL Cholesterol, Calc 115 H HDL Cholesterol 62 Vitamin B12 290 Methylmalonic Acid 112 25-OH Vitamin D Total 32.2 Homocysteine 10.0 TSH 1.12 Ur Specific Burke 1.020 Urine Protein Negative Urine Glucose (UA) Negative Urine Blood Negative Urine Nitrite Negative Ur Leukocyte Esterase Negative Coding Level of Care Code Est Pt Level 4 (42699) Diagnoses Pure hypercholesterolemia E78.00 Superficial gastritis without hemorrhage, unspecified chronicity K29.30 Chronicity: unspecified Impaired fasting glucose R73.01 Gallbladder polyp K82.4 Allergic rhinitis, unspecified seasonality, unspecified trigger J30.9 Allergic rhinitis seasonality: unspecified Allergic rhinitis trigger: unspecified Vitamin D deficiency E55.9 Benign prostatic hyperplasia with urinary frequency N40.1; R35.0 Onychomycosis B35.1 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 Alcohol use disorder F10.90 Anxiety and depression F41.9; F32.A Overweight (BMI 25.0-29.9) E66.3 Additional Codes PHQ-9 - 20598 - PHQ-9 Billing: Yes ([id number]) Assessment & Plan Assessment & Plan (1) Pure hypercholesterolemia: Code(s): E78.00 - Pure hypercholesterolemia, unspecified Category: Medical Plan: Results of his labs done last week reviewed and discussed with patient Reinforced low cholesterol diet Continue Atorvastatin 40 mg QD Will recheck his labs and fasting lipids in 4 months for follow up (2) Superficial gastritis without hemorrhage: Code(s): K29.30 - Chronic superficial gastritis without bleeding Category: Medical Qualifiers: Chronicity: unspecified Qualified Code(s): K29.30 - Chronic superficial gastritis without bleeding Plan: Dietary restrictions reinforced EGD done in 2019 revealed findings consistent with antral gastritis Continue Dexilant 60 mg QD? (taken in the evening for better efficacy) - he has not had any flare up of his GI symptoms for months now Follow up with GI as scheduled (3) Impaired fasting glucose: Code(s): R73.01 - Impaired fasting glucose Category: Medical Plan: His FBS was at 105 mg/dl on his recent labs; HgbA1c was normal at 5.3% when checked previously Reinforced low calorie diet/exercise as tolerated (4) Gallbladder polyp: Code(s): K82.4 - Cholesterolosis of gallbladder Category: Medical Plan: This was initially seen on abdominal US done at the ER in July 2021 when he presented there for abdominal pain He was recommended to get follow up ultrasound in 6 months - this was ordered but patient ended up getting an abdominal and pelvic CT when he presented to the ER in April 2022 for enterocolitis Abdominal and pelvic CT revealed that the the liver is normal in size, shape, and attenuation with no focal hepatic lesion or biliary ductal dilatation; the gallbladder is unremarkable with no evidence of radiopaque gallstones, gallbladder wall thickening, or obvious pericholecystic inflammatory changes No further follow up is needed or recommended for this unless patient develops any symptoms (5) Allergic rhinitis: Code(s): J30.9 - Allergic rhinitis, unspecified Category: Medical Qualifiers: Allergic rhinitis seasonality: unspecified Allergic rhinitis trigger: unspecified Qualified Code(s): J30.9 - Allergic rhinitis, unspecified Plan: Continue OTC Loratadine 10 mg QD PRN (6) Vitamin D deficiency: Code(s): E55.9 - Vitamin D deficiency, unspecified Category: Medical Plan: Continue Vitamin D3 1000 units QD (7) Benign prostatic hyperplasia with urinary frequency: Code(s): N40.1 - Benign prostatic hyperplasia with lower urinary tract symptoms; R35.0 - Frequency of micturition Category: Medical Plan: His PSA was normal when last checked in November 2023 States that his urinary frequency and nocturia have improved a lot with Rx - continue Tamsulosin 0.4 mg Q HS Follow up with urology as scheduled (8) Onychomycosis: Code(s): B35.1 - Tinea unguium Category: Medical Plan: S/P Tx with Terbinafine 250 mg QD Follow up with podiatry as scheduled (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 - Other nail disorders Category: Medical Plan: Have reinforced to patient again that this is a benign condition but he should be watchful of any unusual skin lesions that appear and have them evaluated REVA Will continue to monitor this regularly (10) Alcohol use disorder: Code(s): F10.90 - Alcohol use, unspecified, uncomplicated Category: Medical Plan: Patient is again counseled on the dangers of frequent and heavy alcohol use and is urged to cut back and quit drinking altogether as much as possible (11) Anxiety and depression: Code(s): F41.9 - Anxiety disorder, unspecified; F32.A - Depression, unspecified Category: Medical Plan: Patient reports experiencing increasing depression previously and requested for referral to psychiatry for counseling Follow up with Psychiatry as scheduled (12) Overweight (BMI 25.0-29.9): Code(s): E66.3 - Overweight Category: Medical Plan: Reinforced diet/exercise as tolerated/lose weight Plan Follow up in 4 months Orders: Orders Comprehensive Superior. Panel Fast 4 Months E78.00 - Pure hypercholesterolemia, unspecified Hemoglobin A1c 4 Months R73.01 - Impaired fasting glucose Complete Blood Count Auto Diff 4 Months D64.9 - Anemia, unspecified Lipid Panel 4 Months E78.00 - Pure hypercholesterolemia, unspecified UA CC w/rflx Micro + Cult 4 Months R30.0 - Dysuria TSH reflex Free T4 4 Months E78.00 - Pure hypercholesterolemia, unspecified Vitamin D 25-OH Total 4 Months E55.9 - Vitamin D deficiency, unspecified Medications: New camphor-menthol 0.5-0.5 % 1 appl topical BID-TID PRN 222 mL 0RF itching Refilled tamsulosin 0.4 mg PO BEDTIME 90 caps 3RF 90 days N40.1 - Benign prostatic hyperplasia with lower urinary tract symptoms, R35.1 - Nocturia
[2024-11-25 13:35] VITALS: BP 122/80; PULSE 87; O2SAT 96; BMI 28.7
--- OUTSIDE RECORDS SUMMARY | 2024-11-25 13:41 | XMS_ITS | Encounter Summary ---
Author Organization [employer] Address [address] [facility] [address] [place] [address] Care Team Providers Care Lead Programmer Name Role Phone Unavailable Primary Care Provider Unavailabl e Encounter Details Date Type Department Care Team (Latest Contact Info) Description 10/03/2020 Abstract [facility] CONVERSIONS Dental, Provider, DDS Social History [...]
== END 2024-11-25 14:02 | disposition home or self-care (01) ==
LOC: HO.HMCH 13:34
PROVIDERS: PCP Internal Medicine; Visit Provider Internal Medicine
DX: E78.00 Pure hypercholesterolemia, unspecified (principal); K29.30 Chronic superficial gastritis without bleeding; R73.01 Impaired fasting glucose; K82.4 Cholesterolosis of gallbladder; J30.9 Allergic rhinitis, unspecified; E55.9 Vitamin D deficiency, unspecified; N40.1 Benign prostatic hyperplasia with lower urinary tract symptoms; R35.0 Frequency of micturition; B35.1 Tinea unguium; L60.8 Other nail disorders; F10.90 Alcohol use, unspecified, uncomplicated; F41.9 Anxiety disorder, unspecified; F32.A Depression, unspecified; E66.3 Overweight

== ENCOUNTER → 2024-11-25 13:34 | Outpatient (BNVA) | payer OTHER, SELFPAY | PROVIDERS: PCP Internal Medicine; Visit Provider Internal Medicine | DX: K29.30 Chronic superficial gastritis without bleeding (principal); E78.00 Pure hypercholesterolemia, unspecified; R73.01 Impaired fasting glucose; K82.4 Cholesterolosis of gallbladder; J30.9 Allergic rhinitis, unspecified; E55.9 Vitamin D deficiency, unspecified; N40.1 Benign prostatic hyperplasia with lower urinary tract symptoms; R35.0 Frequency of micturition; B35.1 Tinea unguium; L60.8 Other nail disorders; F10.90 Alcohol use, unspecified, uncomplicated; F41.9 Anxiety disorder, unspecified; F32.A Depression, unspecified; E66.3 Overweight; Z68.28 Body mass index [BMI] 28.0-28.9, adult | CPT/HCPCS: 96127; 99212 ==

== ENCOUNTER 2025-03-08 08:21 | Outpatient (AMB) | payer OTHER, SELFPAY ==
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
[2025-03-08 08:25] VITALS: BP 118/80; PULSE 72; O2SAT 98; BMI 29.3
--- OUTSIDE RECORDS SUMMARY | 2025-03-08 08:34 | XMS_ITS | Encounter Summary ---
Author Organization [employer] Address [address] [facility] [facility] [address] [place] [address] Care Team Providers Care Laborer Egg Producing Farm Name Role Phone Unavailable Primary Care Provider [...]
--- OUTSIDE RECORDS SUMMARY | 2025-03-08 08:34 | XMS_ITS | Clinical Summary ---
Author Organization [employer] Address [address] [facility] [address] [place] [address] Care Team Providers Care Pattern Drum Maker Name Role Phone Unavailable Primary Care Provider [...] FOBT 1965 Lipid Panel 1965 Sigmoidoscopy 1965 Disability Screening 1965 Alcohol/Substance Use Screening 1977 Tobacco Screening 1977 Hepatitis B Vaccines (1 of 3 - 19+ 3-dose series) 1984 Pneumococcal Vaccine: 50+ Years (1 of 1 - PCV) 2015 Zoster Vaccines (1 of 2) 2015 COVID-19 Vaccine ( season) 2025 06/02/2023, 04/30/2022, 04/04/2021, Additional history exists Influenza Vaccine (#1) 2025 3, 03/25/2022, 04/17/2021, Additional history exists DTaP/Tdap/Td [...] patient's age to complete this topic Meningococcal B Vaccine Aged Out No l onger eligible based on patient's age to complete [...]
== END 2025-03-08 09:07 | disposition home or self-care (01) ==
LOC: HO.HSMS 08:22
PROVIDERS: PCP Internal Medicine; Visit Provider Physician Assistant Medical
DX: G47.33 Obstructive sleep apnea (adult) (pediatric) (principal); G47.19 Other hypersomnia; G25.81 Restless legs syndrome; F51.4 Sleep terrors [night terrors]; R53.83 Other fatigue; G47.9 Sleep disorder, unspecified
CPT/HCPCS: 99214

== ENCOUNTER → 2025-03-08 08:21 | Outpatient (BNVA) | payer OTHER, SELFPAY | PROVIDERS: PCP Internal Medicine; Visit Provider Physician Assistant Medical | DX: G47.33 Obstructive sleep apnea (adult) (pediatric) (principal); G47.19 Other hypersomnia; F51.4 Sleep terrors [night terrors]; G25.81 Restless legs syndrome; R53.83 Other fatigue; G47.9 Sleep disorder, unspecified | CPT/HCPCS: 99212 ==

== ENCOUNTER 2025-03-20 09:53 | Emergency (ER) | payer OTHER, SELFPAY ==
--- NOTE | ~2025-03-20 | XR_ITS ---
CLINICAL HISTORY: congestion 2 view chest x-ray Comparison: CR/SR - XR CHEST 2 VIEWS - 05/05/22 11:24 EST Findings: No consolidation or effusion. Heart size is normal. No acute fracture. IMPRESSION: 1. No acute findings. This document has been electronically signed by: David Sheets MD on 03/20/2025 12:14:02
--- NOTE | 2025-03-20 09:58 | ECG_ITS ---
Test Reason : CP Blood Pressure : */* mmHG Vent. Rate : 73 BPM Atrial Rate : 73 BPM P-R Int : 180 ms QRS Dur : 92 ms QT Int : 354 ms P-R-T Axes : 78 65 79 degrees QTcB Int : 389 ms Normal sinus rhythm Normal ECG When compared with ECG of 19-Sep-2019 16:11, No significant change was found Referred By: Gorge Reynolds Electronically Signed By: AMADA MOROCHO
[2025-03-20 10:18] VITALS: BP 147/75; PULSE 76; RESP 18; TEMP 36.5; O2SAT 98; BMI 28.6
[2025-03-20 10:38] LABS: MANUAL DIFF FLAG NO
[2025-03-20 10:39] LABS: Hematocrit 42.9 % (42.0-52.0); Hemoglobin 14.9 g/dl (14.0-18.0); Imm Gran Abs Auto 0.01 X10*3/uL (0.00-0.03); Imm Gran Pct Auto 0.2 % (0.0-0.4); Lymphocytes Absolute Auto 1.3 X10*3/uL (1.2-4.9); Mean Corpuscular HGB Conc 34.7 g/dl (31.0-36.0); Mean Corpuscular Hemoglobin 31.7 pg (27.0-33.0); Mean Corpuscular Volume 91.3 fL (80.0-98.0); NRBC Abs Auto 0.000 X10*3/uL (0.0-0.012); NRBC Pct Auto 0.0 /100WBC (0.0-0.2); Platelet Count 271 X10*3/uL (160-400); Red Blood Count 4.70 X10*6/uL (4.60-5.80); White Blood Count 5.7 X10*3/uL (4.8-10.8)
[2025-03-20 10:53] LABS: Alanine Aminotransferase 28 U/L (0-40); Albumin Level 5.0 g/dL (3.5-5.0); Alkaline Phosphatase 62 U/L (39-117); Anion Gap 12 (12-20); Aspartate Amino Transferase 25 U/L (5-37); Blood Urea Nitrogen 13 mg/dL (9-16); Calcium 9.3 mg/dL (8.4-10.2); Carbon Dioxide 27 mmol/L (22-29); Chloride 107 mmol/L (96-108); Creatinine Clr Calc Pharmacy 102.0; Estimated Glomerular Filt Rate > 60; Potassium 4.9 mmol/L (3.3-5.1); Sodium 141 mmol/L (135-145); Total Protein 7.9 g/dL (6.5-8.0)
[2025-03-20 11:00] LABS: COVID-19 Test Negative (Negative); IDNOW Serial# 58CA691E
[2025-03-20 11:02] LABS: IDNOW Serial# 55D5AD1C; Influenza B2 Negative (Negative)
--- OUTSIDE RECORDS SUMMARY | 2025-03-20 11:23 | XMS_ITS | Clinical Summary ---
Author Organization [employer] Address [address] [facility] [address] [place] [address] Care Team Providers Care Data Systems Manager Name Role Phone Unavailable Primary Care Provider [...]
--- OUTSIDE RECORDS SUMMARY | 2025-03-20 11:23 | XMS_ITS | Encounter Summary ---
Author Organization [employer] Address [address] [facility] [address] [place] [address] Care Team Providers Care Finishing Lab Technician Name Role Phone Unavailable Primary Care Provider Unavailabl e Encounter Details Date Type Department Care Team (Latest Contact Info) Description 10/03/2020 Abstract [facility] CONVERSIONS Dental, Provider, DDS Social [...]
--- NOTE | 2025-03-20 11:40 | ED.URI ---
HPI - URI/Sore Throat General Chief Complaint: Upper Respiratory Symptoms Stated Complaint: Chest Tightness Runny Nose Etc Time Seen by Provider: 03/20/25 11:28 Source: patient and family () Mode of arrival: ambulatory Limitations: language barrier ([place] speaking only, [facility] complex care nurse practitioner used) History of Present Illness ED Provider: Dr. Jaime Stephen HPI Narrative: 59-year-old male with a history of hyperlipidemia, GERD, obstructive sleep apnea who presents emergency department for evaluation of 2 weeks of productive cough, chest tightness and shortness of breath. Patient states his cough is productive of thick phlegm with no blood in the phlegm. He feels short of breath at rest and has dyspnea on exertion. He is complaining of tightness in the center of his chest that has worse with coughing and with movement. He denied fever or chills. He denied nausea, vomiting, diarrhea, myalgias arthralgias. Patient does smoke 2-3 joints of marijuana daily. Related Data Previous Rx's ?Medication ?Instructions ?Recorded famotidine 40 mg tablet (Pepcid) 40 mg PO BEDTIME #30 tabs 08/14/23 Held on 11/04/23. Instructions: nausea hydrocortisone 2.5 % topical cream 1 appl AR BID hemorrhoids #30 grams 11/04/23 with perineal applicator (Proctosol HC) [id number](pork)24,000-76,000-120,000 2 cap PO BID 30 days #120 caps 11/04/23 unit capsule,del rel (Creon) cholecalciferol (vitamin D3) 25 25 mcg PO DAILY #90 caps 08/25/24 mcg (1,000 unit) capsule (Vitamin D3) Dexilant 60 mg capsule, delayed 60 mg PO QAM #30 caps 11/23/24 release (dexlansoprazole) camphor-menthol 0.5 %-0.5 % lotion 1 appl topical BID-TID PRN itching 11/25/24 #222 mL tamsulosin 0.4 mg capsule 0.4 mg PO BEDTIME 90 days #90 caps 11/25/24 gabapentin 300 mg capsule 300 mg PO BEDTIME Rest less legs 03/08/25 3 months #90 caps atorvastatin 40 mg tablet 40 mg PO BEDTIME #90 tabs 03/17/25 azithromycin 250 mg tablet See Rx Instructions PO .COMPLEX #6 03/20/25 (Zithromax Z-Arnel) tabs benzonatate 100 mg capsule 200 mg (2 x 100 mg) PO TID PRN 03/20/25 cough #20 caps Allergies Allergy/AdvReac Type Severity Reaction Status Date / Time No Known Allergies (No Known Allergy Verified 03/20/25 10:21 Allergies*) Review of Systems Review of Systems: Yes all other systems are reviewed and are negative [facility] Past Medical History [facility] Narrative: Social history: He denies tobacco use. He denies drug use. He does smoke 1-2 joints of marijuana per day. Medical History Depression Anxiety and depression Benign prostatic hyperplasia with urinary frequency Hypersomnia Snoring COVID-19 Nocturia Onychia and paronychia of finger GERD (gastroesophageal reflux disease) IBS (irritable bowel syndrome) Overweight (BMI 25.0-29.9) Microscopic hematuria Vitamin D deficiency Allergic rhinitis Impaired fasting glucose Superficial gastritis without hemorrhage Pure hypercholesterolemia Surgical History History of esophagogastroduodenoscopy (EGD) History of colonoscopy Family History Family History Father Medical history unknown Mother Hypertension Maternal Aunt Cancer Maternal Uncle Cancer Social History Social History Household Members: Family Housing: Apartment Do you presently have visiting nurse or other home services: No Alcohol intake: current Alcohol intake frequency: holidays/special occasions only Alcohol type: beer Patient Tobacco Use Status: Never used Tobacco e-Cigarette/Vaping Use: Never Used Second Hand Smoke Exposure: Yes Advance Directives: No Advance Directives Information Provided: Yes service: No Current occupational status: unemployed Cognitive needs: No Hearing needs: No Vision needs: No Physical Exam Vital Signs: Vital Signs: Last Vital Signs Temp 97.7 F 03/20/25 10:18 Pulse 76 03/20/25 10:18 Resp 18 03/20/25 10:18 BP 147/75 H 03/20/25 10:18 Pulse Ox 98 03/20/25 10:18 O2 Del Method Room Air 03/20/25 10:18 BMI result Body Mass Index 28.6 Vital signs revealed an elevated blood pressure of 147/75 Exam: General: Awake, alert in no distress Head: Normocephalic, atraumatic EENT: PERRL, sclera and conjunctiva are normal, mouth with no erythema or exudates Neck: Supple, no adenopathy Lung: breath sounds symmetric, no wheezing, no rales and no rhonchi Chest: symmetric movement, nontender Heart: regular rate and rhythm, normal S1, S2 no murmurs or rubs Abdomen: soft, non-tender, nondistended, normal bowel sounds Back: no vertebral tenderness, no CVAT Extremities: no deformities, moves all extremities symmetrically, no edema Neuro: Awake, alert, oriented, normal speech, cranial nerves 2-12 intact, moves all extremities symmetrically Psych: Pleasant, cooperative Medical Decision Making Medical Decision Making MDM Narrative: 59-year-old male with a history of hyperlipidemia, GERD, obstructive sleep apnea who presents emergency department for evaluation of 2 weeks of productive cough, chest tightness and shortness of breath. Patient states his cough is productive of thick phlegm with no blood in the phlegm. He feels short of breath at rest and has dyspnea on exertion. He is complaining of tightness in the center of his chest that has worse with coughing and with movement. He denied fever or chills. He denied nausea, vomiting, diarrhea, myalgias arthralgias. Patient does smoke 2-3 joints of marijuana daily. Differential diagnosis: ?Includes but is not limited to myocardial infarction, myocardial ischemia, pneumonia, bronchitis, presents with viral syndrome, COVID-19, influenza, electrolyte abnormalities, anemia Course: 11:58 My independent interpretation patient's laboratory evaluation is as follows: CBC, CMP were normal. COVID 19 and influenza were negative. Chest x-ray revealed no acute infiltrates. EKG was unremarkable. The patient has been sick for 2 weeks. Given his daily marijuana use I am concerned that he came in his it increases risk for acute bacterial bronchitis. I did discuss this with the patient and the patient's . Patient was given a prescription for azithromycin Z-Arnel and Tessalon Perles 200 mg TID PRN cough. Patient was given printed and verbal instructions and discharged home. Differential Diagnosis Differential Diagnoses: The differential diagnosis associated with the presentation includes Admission/Observation Consideration of admission/observation: Escalation of care including admission/observation considered (Yes) Lab Data MDM Lab Attestation statement: I reviewed the patient's lab results. 03/20/25 10:30 03/20/25 10:30 Labs: Lab Results 03/20/25 Range/Units 10:30 WBC 5.7 (4.8-10.8) X10*3/uL RBC 4.70 (4.60-5.80) X10*6/uL Hgb 14.9 (14.0-18.0) g/dl Hct 42.9 (42.0-52.0) % MCV 91.3 (80.0-98.0) fL MCH 31.7 (27.0-33.0) pg MCHC 34.7 (31.0-36.0) g/dl RDW 11.7 (11.0-16.0) % Plt Count 271 (160-400) X10*3/uL MPV 9.1 L (9.4-12.4) fL Immature Gran % (Auto) 0.2 (0.0-0.4) % Neut % (Auto) 64.9 (45-73) % Lymph % (Auto) 22.1 (20-40) % [place] % (Auto) 10.9 (2-11) % Eos % (Auto) 1.4 (0-4) % Baso % (Auto) 0.5 (0-2) % Lymph # (Auto) 1.3 (1.2-4.9) X10*3/uL [place] # (Auto) 0.6 (0.1-1.2) X10*3/uL Eos # (Auto) 0.1 (0.0-0.4) X10*3/uL Baso # (Auto) 0.0 (0.0-0.2) X10*3/uL Abs Immat Gran (auto) 0.01 (0.00-0.03) X10*3/uL Absolute Neuts (auto) 3.7 (2.0-8.3) x10*3/uL Absolute Nucleated RBC 0.000 (0.0-0.012) X10*3/uL Nucleated RBC % (auto) 0.0 (0.0-0.2) /100WBC Sodium 141 (135-145) mmol/L Potassium 4.9 (3.3-5.1) mmol/L Chloride 107 (96-108) mmol/L Carbon Dioxide 27 (22-29) mmol/L Anion Gap 12 (12-20) BUN 13 (9-16) mg/dL Creatinine 0.75 (0.5-1.4) mg/dL Estim Creat Clear Calc 102.0 Estimated GFR > 60 Random Glucose 80 (60-115) mg/dL Calcium 9.3 (8.4-10.2) mg/dL Total Bilirubin 0.3 (0.0-1.0) mg/dL AST 25 (5-37) U/L ALT 28 (0-40) U/L Alkaline Phosphatase 62 (39-117) U/L Total Protein 7.9 (6.5-8.0) g/dL Albumin 5.0 (3.5-5.0) g/dL COVID-19 (ANGELITO) Negative (Negative) COVID-19 Clin Com See Note Influenza Type A (BLOSSOM) Negative (Negative) Influenza Type B (BLOSSOM) Negative (Negative) Influenza A & B Note See Note Independent Interpretation I performed an independent interpretation of an: EKG Interpretation: My independent interpretation patient's 12 EKG done on 03/20/2025 at 10:01 hours is as follows: Normal sinus rhythm with a rate of 73, normal AR interval, QRS duration QTC interval, no ST segment elevation, no ST segment depression, no PACs, no PVCs, no significant T-wave abnormalities. Compared to an EKG dated 09/19/2019, there is no significant change. My independent interpretation of the patient's one-view chest x-ray is as follows: No acute disease Independent Historian Clinical information obtained from an independent historian. History obtained from or confirmed by: Spouse Prescription Management I considered prescription management with: Antibiotic (Zithromax Z-Arnel) and Other (Tessalon Perles) Chronic Conditions Patient?s care impacted by: Hypertension and Other (Obstructive sleep apnea, daily marijuana use) Discharge Plan Discharge Clinical Impression: Acute bronchitis, Left ear pain Patient Disposition: Home, Self-Care Instructions: Acute Bronchitis (ED) Additional Instructions: Your blood work was normal. Your EKG was unremarkable which is reassuring. Your chest x-ray was normal. At this time I believe that you have bronchitis (infection of your breathing tubes). Take Zithromax (azithromycin) Z-Arnel as prescribed. Day 1 take 2 pills, each day after that take 1 pill for total of 5 days. This medication states in your system for 7-10 days and continues to work despite only taking it for 5 days. Take Tessalon Perles 200 mg pills, 1 pill 3 times a day as needed for cough. Take ibuprofen 200 mg pills, 2 pills every 6 hours as needed for pain or fever. Take Tylenol (acetaminophen) 500 mg pills, 2 pills every 6 hours as needed for pain or fever. Follow-up with your doctor in 2 days. Please return to the emergency department if your symptoms get worse or if you develop any symptoms that are concerning to you. Prescriptions: New benzonatate 100 mg capsule 200 mg PO TID PRN (Reason: cough) Qty: 20 0RF azithromycin [Zithromax Z-Arnel] 250 mg tablet See Rx Instructions .ROUTE .COMPLEX Qty: 6 0RF Rx Instructions: For 250 mg dose pack: take 500 mg today (day 1), then 250 mg for 4 days (days 2-5) No Action cholecalciferol (vitamin D3) [Vitamin D3] 25 mcg (1,000 unit) capsule 25 mcg PO DAILY Qty: 90 1RF dexlansoprazole [Dexilant] 60 mg capsule,biphase delayed releas 60 mg PO QAM Qty: 30 6RF atorvastatin 40 mg tablet 40 mg PO BEDTIME Qty: 90 0RF hydrocortisone [Proctosol HC] 2.5 % cream with perineal applicator 1 appl AR BID Qty: 30 6RF Rx Instructions: BE SURE TO INCLUDE RECTAL APPICATOR!! Creon 24,000-76,000 -120,000 unit capsule,delayed release(DR/EC) 2 cap PO BID 30 Days Qty: 120 6RF Rx Instructions: administer with meals and/or snacks camphor-menthol 0.5-0.5 % lotion 1 appl topical BID-TID PRN (Reason: itching) Qty: 222 0RF tamsulosin 0.4 mg capsule 0.4 mg PO BEDTIME 90 Days Qty: 90 3RF famotidine [Pepcid] 40 mg tablet 40 mg PO BEDTIME Qty: 30 6RF gabapentin 300 mg capsule 300 mg PO BEDTIME MDD 300mg 90 Days Qty: 90 0RF Rx Instructions: take one 300mg capsule by mouth at bedtime. Print Language: [place]
[2025-03-20 12:05] VITALS: BP 133/82; PULSE 73; RESP 18; TEMP 36.8; O2SAT 97
[2025-03-20 12:17] VITALS: BP 133/82; PULSE 73; RESP 18; TEMP 36.8; O2SAT 97
== END 2025-03-20 12:18 | disposition home or self-care (01) ==
PROVIDERS: Emergency Provider Emergency Medicine Emergency Medical Services; PCP Internal Medicine
DX: J20.9 Acute bronchitis, unspecified (principal); H92.02 Otalgia, left ear; R07.89 Other chest pain; Z11.52 Encounter for screening for COVID-19; Z79.899 Other long term (current) drug therapy
CPT/HCPCS: 71046; 80053; 85025; 87502; 87635; 93005; 99283; 99284

== ENCOUNTER → 2025-03-20 09:58 | Outpatient (BNV) | payer OTHER, SELFPAY | PROVIDERS: Emergency Provider Emergency Medicine Emergency Medical Services; PCP Internal Medicine; Visit Provider Internal Medicine | DX: R07.9 Chest pain, unspecified (principal) | CPT/HCPCS: 93010 ==

== ENCOUNTER → 2025-03-20 10:21 | Outpatient (BNV) | payer OTHER, SELFPAY | PROVIDERS: Emergency Provider Emergency Medicine Emergency Medical Services; PCP Internal Medicine; Visit Provider Radiology Diagnostic Radiology | DX: R09.89 Other specified symptoms and signs involving the circulatory and respiratory systems (principal) | CPT/HCPCS: 71046 ==

== ENCOUNTER 2025-03-30 07:30 | Outpatient (REF) | payer OTHER, SELFPAY ==
--- OUTSIDE RECORDS SUMMARY | 2025-03-30 07:33 | XMS_ITS | Encounter Summary ---
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
--- OUTSIDE RECORDS SUMMARY | 2025-03-30 07:33 | XMS_ITS | Clinical Summary ---
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
[2025-03-30 07:42] LABS: MANUAL DIFF FLAG NO
[2025-03-30 08:26] LABS: Hematocrit 43.8 % (42.0-52.0); Hemoglobin 14.8 g/dl (14.0-18.0); Imm Gran Abs Auto 0.01 X10*3/uL (0.00-0.03); Imm Gran Pct Auto 0.2 % (0.0-0.4); Lymphocytes Absolute Auto 1.7 X10*3/uL (1.2-4.9); Mean Corpuscular HGB Conc 33.8 g/dl (31.0-36.0); Mean Corpuscular Hemoglobin 31.7 pg (27.0-33.0); Mean Corpuscular Volume 93.8 fL (80.0-98.0); NRBC Abs Auto 0.000 X10*3/uL (0.0-0.012); NRBC Pct Auto 0.0 /100WBC (0.0-0.2); Platelet Count 250 X10*3/uL (160-400); Red Blood Count 4.67 X10*6/uL (4.60-5.80); White Blood Count 4.8 X10*3/uL (4.8-10.8)
[2025-03-30 08:49] LABS: Appearance Urine Clear; Glucose Urine UA Negative (Negative); PH 8.0 (5.0-9.0); Specific Gravity - Urine 1.015 (1.005-1.025); UMIC TRIGGER UACC YES
[2025-03-30 09:42] LABS: Alanine Aminotransferase 31 U/L (0-40); Albumin Level 4.8 g/dL (3.5-5.0); Alkaline Phosphatase 61 U/L (39-117); Anion Gap 9 (12-20); Aspartate Amino Transferase 30 U/L (5-37); Blood Urea Nitrogen 15 mg/dL (9-16); Calcium 9.2 mg/dL (8.4-10.2); Carbon Dioxide 32 mmol/L (22-29); Chloride 103 mmol/L (96-108); Cholesterol 175 mg/dL (<200); Estimated Glomerular Filt Rate > 60; HDL Cholesterol 56 mg/dL (>40); Potassium 4.0 mmol/L (3.3-5.1); Sodium 140 mmol/L (135-145); Total Protein 7.7 g/dL (6.5-8.0); Triglycerides 122 mg/dL (<150)
== END 2025-03-30 07:31 | disposition home or self-care (01) ==
LOC: HO.LAB 07:30
PROVIDERS: PCP Internal Medicine; Visit Provider Internal Medicine
DX: R73.01 Impaired fasting glucose (principal); E78.00 Pure hypercholesterolemia, unspecified; D64.9 Anemia, unspecified; E55.9 Vitamin D deficiency, unspecified; R30.0 Dysuria
CPT/HCPCS: 36415; 80053; 80061; 81001; 82306; 83036; 84443; 85025

== ENCOUNTER 2025-04-05 12:00 | Outpatient (AMB) | payer OTHER, SELFPAY ==
[2025-04-05 12:34] VITALS: BP 110/78; PULSE 74; O2SAT 96; BMI 29.6
--- NOTE | 2025-04-05 12:34 | A.OFFPC_ITS ---
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 Instructions: nausea gabapentin 300 mg PO BEDTIME 3 months MDD 300mg hydrocortisone 2.5% (Proctosol HC) 1 appl OR BID ewnblf-txwsnfhy-rtekgxk (pork) 24,000-76,000 -120,000 unit (Creon) 2 caps PO BID 30 days tamsulosin 0.4 mg PO BEDTIME 90 days Tobacco use date assessed: 04/05/25 Dental Screening Dental Screen Date: 04/05/25 Did you have a dental visit in the last 12 months?: Yes Did you have a dental problem in the last 6 months where you did not have access to dental care?: No Was dental information given to patient?: Patient has dentist HPI annual exam HPI Details Patient comes in today for his annual physical examination States that he feels okay He denies any headaches or dizziness Denies any chest pains, no SOB No nausea/vomiting, no abdominal pain No change in bowel habits noted He denies any acute urinary symptoms States that he still has on and off depression and is requesting for a referral again for therapy/counseling - he was referred last year but he was not able to make it to his appointment then Needs his Vitamin D Rx refilled today He had his follow up labs done last week - to discuss his results He would also like to get his flu shot today He had a normal screening colonoscopy done back in December 2016 and was recommended for repeat colonoscopy in 10 years (2026) [facility] Medical History Depression Anxiety and depression Benign prostatic hyperplasia with urinary frequency Hypersomnia Snoring COVID-19 Nocturia Onychia and paronychia of finger GERD (gastroesophageal reflux disease) IBS (irritable bowel syndrome) Overweight (BMI 25.0-29.9) Microscopic hematuria Vitamin D deficiency Allergic rhinitis Impaired fasting glucose Superficial gastritis without hemorrhage Pure hypercholesterolemia Surgical History History of esophagogastroduodenoscopy (EGD) History of colonoscopy Family History Father Medical history unknown Mother Hypertension Maternal Aunt Cancer Maternal Uncle Cancer Social History Household Members: Family Housing: Apartment Do you presently have visiting nurse or other home services: No Alcohol intake: current Alcohol intake frequency: holidays/special occasions only Alcohol type: beer Patient Tobacco Use Status: Never used Tobacco e-Cigarette/Vaping Use: Never Used Second Hand Smoke Exposure: Yes service: No Current occupational status: unemployed Cognitive needs: No Hearing needs: No Vision needs: No Questionnaire PHQ-9 Over the last 2 weeks, how often have you been bothered by any of the following problems? 1. Little interest or pleasure in doing things: not at all 2. Feeling down, depressed, or hopeless: several days 3. Trouble falling or staying asleep, or sleeping too much: not at all 4. Feeling tired or having little energy: several days 5. Poor appetite or overeating: not at all 6. Feeling bad about yourself - or that you are a failure or have let yourself or your family down: not at all 7. Trouble concentrating on things, such as reading the newspaper or watching television: not at all 8. Moving or speaking so slowly that other people could have noticed. Or the opposite - being so fidgety or restless that you have been moving around a lot more than usual: not at all 9. Thoughts that you would be better off or of hurting yourself in some way: not at all Total score: 2 Depression Screening Interpretation: Positive Depression Screening Follow-up: Existing condition and Community Mental Health Worker F/U Depression Screening Done: Yes 55436 - PHQ-9 Billing: Yes Source: Developed by Drs. Erik Gauthier, Asuncion Morfin, Milton Trammell and colleagues, with an educational hudson from [employer]. Thrive Questionnaire Date Thrive assessed: 04/05/25 I am a: Patient What is your living situation today?: I have a steady place to live Within the past 12 months, did the food you bought not last and you didn't have the money to get more?: Often true Within the past 12 months, did you worry whether your food would run out before you got money to buy more?: Often true Do you have trouble paying for medicines?: I choose not to answer this question Do you have trouble getting transportation to medical appointments?: I choose not to answer this question Do you have trouble paying your heating and electricity bill?: I choose not to answer this question Do you have trouble taking care of your child, family member or friend?: I choose not to answer this question Do you have trouble with day-to-day activities such as bathing, preparing meals, shopping, managing finances, etc.?: No Are you currently unemployed and looking for a job?: No Are you interested in more education?: No Please select the resources that you would like help with: None Currently or been in a relationship where the following occur: No concerns reported THRIVE Score: 2 AUDIT C Alcohol Use Questionnaire (AUDIT-C) 1. How often do you have a drink containing alcohol?: 2-3 times a week 2. How many drinks containing alcohol do you have on a typical day when you are drinking?: 3 or 4 3. How often do you have six or more drinks on one occasion?: Weekly Total Score: 7 Score Reviewed/Action Taken: Yes GARRET-7 AMB Questionnaire GARRET-7 Date GARRET - 7 assessed: 04/05/25 Feeling nervous, anxious, or on edge: 0 = Not at all Not being able to stop or control worryin = Not at all Worrying too much about different things: 0 = Not at all Trouble relaxin = Not at all Being so restless that it is hard to sit still: 0 = Not at all Becoming easily annoyed or irritable: 0 = Not at all Feeling afraid as if something awful might happen: 0 = Not at all Total GARRET-7 score (0-4 normal; 5-9 mild; 10-14 moderate; 15-21 severe): 0 Source: Developed by Drs. Erik Gauthier, Asuncion Morfin, Milton cervantes nd colleagues, with an educational hudson from [employer]. Review of Systems Const Denies chills, Denies fatigue, Denies fever(s), Denies headache(s), Denies malaise and Denies weakness Eyes Denies blurry vision, Denies change in vision, Denies irritation and Denies itchy eyes ENT Denies dysphagia, Denies dizziness, Denies otalgia, Denies headache(s), Denies nasal congestion, Denies neck pain, Denies odynophagia and Denies sore throat Card Denies rapid heart rate, Denies irregular heart rhythm, Denies palpitations and Denies dyspnea Resp Denies chest congestion, Denies cough, Denies dyspnea and Denies wheezing GI Denies abdominal pain, Denies bloating, Denies constipation, Denies dysphagia, Denies heartburn, Denies diarrhea, Denies nausea, Denies odynophagia and Denies vomiting Denies hematuria, Denies difficulty urinating, Denies dysuria, Denies urinary frequency and Denies urinary urgency Musc Denies back pain, Denies arthralgias, Denies joint swelling, Denies muscle weakness and Denies neck pain Skin/Breast Denies change in pigmentation, Denies lesions, Denies rash and Denies unusual bruising Neuro Denies dizziness, Denies headache(s), Denies paresthesias and Denies weakness Psych Reports depression (on and off) Endo Denies fatigue and Denies palpitations Aller/Immun Denies itchy eyes and Denies wheezing Physical exam (Primary Care) Vital Signs: Last Vital Signs Pulse 74 04/05/25 12:34 BP 110/78 04/05/25 12:34 Pulse Ox 96 04/05/25 12:34 Oxygen Delivery Method Room Air 04/05/25 12:34 BMI result Body Mass Index 29.6 Tobacco/Smoking Status: Tobacco use Status Tobacco use date assessed 04/05/25 04/05/25 12:39 Patient Tobacco Use Status Never used Tobacco 04/05/25 12:39 e-Cigarette/Vaping Use Never Used 04/05/25 12:39 PHQ-9: PHQ-9 Score PHQ-9: Total score 2 04/05/25 13:18 Depression Screening Interpretation: Positive Depression Screening Follow-up: Existing condition and Community Mental Health Worker F/U Thrive Assessment: Date of Thrive Assessment Date Thrive assessed 04/05/25 04/05/25 12:39 Currently or been in a relationship where the following occur: No concerns reported Const General: no acute distress and alert Orientation/consciousness: patient oriented x3 HENMO Head: Yes normocephalic and Yes atraumatic Ears: TM's normal bilaterally and EAC's normal General nose exam: No nasal discharge present Face and sinus: Yes normal facial exam and Yes sinuses nontender Teeth and gingiva: dentition normal Throat: Yes posterior oropharynx normal and Yes tonsils normal (no TP congestion) Eyes Eyelids: Yes eyelids normal Conjunctivae: conjunctivae normal Pupils: Equal, round and reactive pupils present EOM: EOMs intact bilaterally Neck Neck: Yes supple and No lymphadenopathy Thyroid: Thyroid normal Resp Auscultation: clear to auscultation bilaterally, no rales and no wheezes Cardio Rate: regular rate Rhythm: regular rhythm Heart sounds: no murmurs GI Palpation (GI): Soft to palpation and nontender Auscultation: normal bowel sounds General: Yes no CVA tenderness Back/Spine/Pelvis Back: no CVA tenderness Thoracic/Lumbar Spine: No lumbar spinal tenderness Skin Lesions: no lesions Rashes: no rashes Neuro General: patient oriented x3, moves all extremities, no focal motor deficits and CN's II-XI intact bilaterally Cranial nerves: Yes Equal, round and reactive pupils present Cognition (Neuro): normal cognition Gait exam (Neuro): Normal gait present Extrem General: Yes no clubbing, cyanosis or edema Office Procedures Flu Questionnaire Does the patient have a severe egg allergy?: No Does the patient have severe life threatening allergies?: No Does the patient have a fever or illness today?: No Has the patient ever had Guillain-[place] Syndrome?: No Has the patient ever had any past reaction to a flu shot?: No Immunizations Fluarix [id number] (PF) 45 mcg (15 mcg x 3)/0.5 mL IM syringe Performing Provider: Gorge Reynolds MD Per[facility] Administered by: ALESSIO Currie on 04/05/25 15:24 Dose Route Admin Location Dispensed Lot Number Expiration Date NDC Paving Block Cutter 0.5 mL IM Left Deltoid 0.5 mL [id number] 11/22/25 [id number] [employer] VIS Given Date VIS Provided VIS Publication Date 04/05/25 Single Vaccine 24 Eligibility Eligibility Date Funding Source Not [facility] Eligible 04/05/25 Private Results Reviewed Results Reviewed: Laboratory Tests 03/30/25 03/30/25 07:35 07:41 WBC 4.8 Hgb 14.8 Hct 43.8 Plt Count 250 Sodium 140 Potassium 4.0 Creatinine 0.78 Estimated GFR > 60 Fasting Glucose 105 H Hemoglobin A1c % 5.6 Calcium 9.2 AST 30 ALT 31 Triglycerides 122 Cholesterol 175 LDL Cholesterol, Calc 95 HDL Cholesterol 56 25-OH Vitamin D Total 33.1 TSH 1.23 Ur Specific [place] 1.015 Urine Protein Negative Urine Glucose (UA) Negative Urine Blood Trace H Urine Nitrite Negative Ur Leukocyte Esterase Negative Coding Level of Care Code Est Pt Prev Care 40-64y(32330) Diagnoses Annual physical exam Z00.00 Pure hypercholesterolemia E78.00 Superficial gastritis without hemorrhage, unspecified chronicity K29.30 Chronicity: unspecified Impaired fasting glucose R73.01 Gallbladder polyp K82.4 Allergic rhinitis, unspecified seasonality, unspecified trigger J30.9 Allergic rhinitis seasonality: unspecified Allergic rhinitis trigger: unspecified Vitamin D deficiency E55.9 Benign prostatic hyperplasia with urinary frequency N40.1; R35.0 Onychomycosis B35.1 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 Alcohol use disorder F10.90 Anxiety and depression F41.9; F32.A Overweight (BMI 25.0-29.9) E66.3 Additional Codes PHQ-9 - 59227 - PHQ-9 Billing: Yes ([id number]) Assessment & Plan Assessment & Plan (1) Annual physical exam: Code(s): Z00.00 - Encounter for general adult medical examination without abnormal findings Category: Medical Plan: Results of his labs done last week reviewed and discussed with patient He is up-to-date with his colon cancer screening - he had a normal screening colonoscopy done back in December 2016 and was recommended for repeat colonoscopy in 10 years (2026) (2) Pure hypercholesterolemia: Code(s): E78.00 - Pure hypercholesterolemia, unspecified Category: Medical Plan: Reinforced low cholesterol diet Continue Atorvastatin 40 mg QD Will recheck his labs and fasting lipids in 4 months for follow up (3) Superficial gastritis without hemorrhage: Code(s): K29.30 - Chronic superficial gastritis without bleeding Category: Medical Qualifiers: Chronicity: unspecified Qualified Code(s): K29.30 - Chronic superficial gastritis without bleeding Plan: Dietary restrictions reinforced EGD done in 2019 revealed findings consistent with antral gastritis Continue Dexilant 60 mg QD? (taken in the evening for better efficacy) - he has not had any flare up of his GI symptoms for months now Follow up with GI as scheduled (4) Impaired fasting glucose: Code(s): R73.01 - Impaired fasting glucose Category: Medical Plan: His FBS was again at 105 mg/dl on his recent labs; HgbA1c was normal at 5.6% (was also normal at 5.3% when checked previously) Reinforced low calorie diet/exercise as tolerated (5) Gallbladder polyp: Code(s): K82.4 - Cholesterolosis of gallbladder Category: Medical Plan: This was initially seen on abdominal US done at the ER in July 2021 when he presented there for abdominal pain He was recommended to get follow up ultrasound in 6 months - this was ordered but patient ended up getting an abdominal and pelvic CT when he presented to the ER in April 2022 for enterocolitis Abdominal and pelvic CT revealed that the the liver is normal in size, shape, and attenuation with no focal hepatic lesion or biliary ductal dilatation; the gallbladder is unremarkable with no evidence of radiopaque gallstones, gallbladder wall thickening, or obvious pericholecystic inflammatory changes No further follow up is needed or recommended for this unless patient develops any symptoms (6) Allergic rhinitis: Code(s): J30.9 - Allergic rhinitis, unspecified Category: Medical Qualifiers: Allergic rhinitis seasonality: unspecified Allergic rhinitis trigger: unspecified Qualified Code(s): J30.9 - Allergic rhinitis, unspecified Plan: Continue OTC Loratadine 10 mg QD PRN (7) Vitamin D deficiency: Code(s): E55.9 - Vitamin D deficiency, unspecified Category: Medical Plan: Continue Vitamin D3 1000 units QD (8) Benign prostatic hyperplasia with urinary frequency: Code(s): N40.1 - Benign prostatic hyperplasia with lower urinary tract symptoms; R35.0 - Frequency of micturition Category: Medical Plan: His PSA was normal when last checked in November 2023 States that his urinary frequency and nocturia have improved a lot with Rx - continue Tamsulosin 0.4 mg Q HS Follow up with urology as scheduled (9) Onychomycosis: Code(s): B35.1 - Tinea unguium Category: Medical Plan: S/P Tx with Terbinafine 250 mg QD Follow up with podiatry as scheduled (10) Longitudinal melanonychia: Code(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 - Other nail disorders Category: Medical Plan: Have reinforced to patient again that this is a benign condition but he should be watchful of any unusual skin lesions that appear and have them evaluated REVA Will continue to monitor this regularly (11) Alcohol use disorder: Code(s): F10.90 - Alcohol use, unspecified, uncomplicated Category: Medical Plan: Patient is again counseled on the dangers of frequent and heavy alcohol use and is urged to cut back and quit drinking altogether as much as possible (12) Anxiety and depression: Code(s): F41.9 - Anxiety disorder, unspecified; F32.A - Depression, unspecified Category: Medical Plan: Patient reports that he is still experiencing on and off depression and is again requesting for referral to psychiatry for counseling - referral placed He was previously referred (last year) but was not able to make it to his appointment (13) Overweight (BMI 25.0-29.9): Code(s): E66.3 - Overweight Category: Medical Plan: Reinforced diet/exercise as tolerated/lose weight Plan Per request, flu vaccine given today Follow up in 4 months Orders: Orders Complete Blood Count Auto Diff 4 Months D64.9 - Anemia, unspecified Lipid Panel 4 Months E78.00 - Pure hypercholesterolemia, unspecified Influenza [id number] Immunization Today Z23 - Encounter for immunization Comprehensive [place]. Panel Fast 4 Months E78.00 - Pure hypercholesterolemia, unspecified UA CC w/rflx Micro + Cult 4 Months R30.0 - Dysuria Vitamin D 25-OH Total 4 Months E55.9 - Vitamin D deficiency, unspecified Referrals Psychiatry Referral F32.A - Depression, unspecified, F41.9 - Anxiety disorder, unspecified Medications: Changed From cholecalciferol (vitamin D3) (Vitamin D3) 25 mcg PO DAILY 90 caps 1RF To cholecalciferol (vitamin D3) (Vitamin D3) 25 mcg PO DAILY 90 caps 3RF 90 days
--- OUTSIDE RECORDS SUMMARY | 2025-04-05 14:00 | XMS_ITS | Encounter Summary ---
Author Organization [employer] Address [address] [place] [address] Care Team Providers Care Locker Room Manager Name Role Phone Unavailable Primary Care Provider Unavailabl e Encounter Details Date Type Department Care Team (Latest Contact Info) Description 10/03/2020 Abstract [facility] CONVERSIONS Dental, Provider, DDS Social [...]
--- OUTSIDE RECORDS SUMMARY | 2025-04-05 14:00 | XMS_ITS | Clinical Summary ---
Author Organization [employer] Address [address] [place] [address] Care Team Providers Care Die Assembler Name Role Phone Unavailable Primary Care [...]
== END 2025-04-05 13:20 | disposition home or self-care (01) ==
LOC: HO.HMCH 12:01
PROVIDERS: PCP Internal Medicine; Visit Provider Internal Medicine
DX: Z00.00 Encounter for general adult medical examination without abnormal findings (principal); E78.00 Pure hypercholesterolemia, unspecified; K29.30 Chronic superficial gastritis without bleeding; R73.01 Impaired fasting glucose; K82.4 Cholesterolosis of gallbladder; J30.9 Allergic rhinitis, unspecified; E55.9 Vitamin D deficiency, unspecified; N40.1 Benign prostatic hyperplasia with lower urinary tract symptoms; R35.0 Frequency of micturition; B35.1 Tinea unguium; L60.8 Other nail disorders; F10.90 Alcohol use, unspecified, uncomplicated; F41.9 Anxiety disorder, unspecified; F32.A Depression, unspecified; E66.3 Overweight; Z23 Encounter for immunization

== ENCOUNTER → 2025-04-05 12:00 | Outpatient (BNVA) | payer OTHER, SELFPAY | PROVIDERS: PCP Internal Medicine; Visit Provider Internal Medicine | DX: Z00.00 Encounter for general adult medical examination without abnormal findings (principal); Z23 Encounter for immunization; E78.00 Pure hypercholesterolemia, unspecified; K29.30 Chronic superficial gastritis without bleeding; R73.01 Impaired fasting glucose; K82.4 Cholesterolosis of gallbladder; J30.9 Allergic rhinitis, unspecified; E55.9 Vitamin D deficiency, unspecified; N40.1 Benign prostatic hyperplasia with lower urinary tract symptoms; R35.0 Frequency of micturition; B35.1 Tinea unguium; L60.8 Other nail disorders; F10.90 Alcohol use, unspecified, uncomplicated; F41.9 Anxiety disorder, unspecified; F32.A Depression, unspecified; E66.3 Overweight; Z68.29 Body mass index [BMI] 29.0-29.9, adult | CPT/HCPCS: 90471; 90656; 96127; 99396 ==